=== PATIENT | female | born 1970 | race African-American/Black ===

== ENCOUNTER → 2016-10-30 | Outpatient (CLI) | payer MEDICARE, OTHER ==
[2016-10-30 11:16] VITALS: BP 113/76; PULSE 64; RESP 18; TEMP 97.6; BMI 47.4
--- NOTE | 2016-10-31 06:49 | PN ---
DATE OF SERVICE: 10/30/2016 CHIEF COMPLAINT: Follow-up gastric bypass. HISTORY OF PRESENT ILLNESS: Karina Lord is a 46-year-old female who is status post Tunde-en-Y gastric bypass on 03/31/2016. She is now almost 7 months out. At her height of 5-foot, 4-3/4-inch frame her ideal body weight is 144 pounds. Today she comes in weighing 282 pounds. Her highest weight was 364 pounds. She has lost 82 pounds in approximately 6 going on 7 months. Percent excess weight loss is 37%. Body mass index has been reduced from 61 down to 47.4. Total BMI point reduction is 13.8. In fact she has completely changed her lifestyle whereby she goes to the gym every day for over an hour including doing cardio. Her main concerns include her excess skin along her bilateral arms, thighs and abdomen. She reports discomfort, including pain along her arms especially with exercising. She has developed panniculitis of the skin fold including of the abdomen and thighs and incidentally of the arms. She has been using nystatin powders for treatment for over 6 months. Now she presents for further evaluation and management. She also reports severe lower back pain exacerbated by her excess skin. PAST MEDICAL HISTORY: 1. History of thyroid cancer. 2. Morbid obesity. 3. Iatrogenic hyperthyroidism. 4. Chronic pain, lower back. 5. Dyslipidemia. 6. Gastroesophageal reflux disease. 7. Diabetes type 2. 8. Prior history of chemoradiation. 9. History of difficult intubation. 10. Osteoarthritis of the left knee. 11. Neuropathy of the hands. 12. Vitamin D deficiency. PAST SURGICAL HISTORY: 1. Tubal ligation. 2. Thyroidectomy. 3. History of chemoradiation for thyroid cancer. 4. Upper endoscopy. MEDICATIONS: 1. Zantac. 2. Nystatin. 3. Multivitamin. 4. Magnesium oxide. 5. Synthroid. 6. Roma. 7. Calcium citrate. 8. Amoxicillin. ALLERGIES: SHELLFISH. SOCIAL HISTORY: Past tobacco user 3 years ago. FAMILY HISTORY: Her mother is at bedside who appears 20 years younger than her 79-years of age. No reports of Crohn disease or ulcerative colitis. No reports of other bariatric procedures in any family members. No reports of DVTs. REVIEW OF SYSTEMS: CONSTITUTIONAL: [place] body weight 144 pounds. Highest weight is 364 pound. Weight loss of 82 pounds. Body mass index reduced from 61.2 down to 47.4. Total BMI point reduction of 13.8. Percent excess weight loss of 37%. SKIN: Severe panniculitis including of the abdomen, thighs and arms. ENDOCRINE: History of suppressed thyroid also being managed by her cylinder block mechanic. Diabetes type 2 is completely resolved. CARDIOVASCULAR: She is not on any medications related to blood pressure. RESPIRATORY: Obstructive sleep apnea has completely resolved. MUSCULOSKELETAL: Otherwise, she has neuropathy of the hands as well as degenerative joint disease of the lower back, left knee and right foot. HEMATOLOGIC: No recent DVTs or pulmonary emboli. HEENT: She wears glasses. No troubles with hearing. She has dysphagia from history of chemoradiation and thyroid cancer. GASTROINTESTINAL: Gastroesophageal reflux disease resolved. No reports of blood in stools. NEURO: No reports of stroke or seizure disorder. PSYCH: No reports of active depression or suicidal ideation. PHYSICAL EXAM: VITAL SIGNS: 97.6, 64, 18, 113/76, 5 feet 4-3/4 inches, 282 pounds. Body mass index of 47.4. ABDOMEN: Pannus extends over pubis by 5 cm. Redundant skin of the bilateral upper arms of over 6 cm upon extension. No palpable incisional hernias. SKIN: Thighs moderate extensive skin with hyperemic consistent with panniculitis along both the abdomen including thighs. GENERAL: Well-developed female in no acute distress. HEENT: No scleral icterus. Extraocular ocular movements intact. Moist buccal mucosa. She has hoarse voice. NECK: Supple without lymphadenopathy. Well-healed collar incision. CHEST: Nonlabored respirations with equal bilateral excursions. CARDIOVASCULAR: Regular rate and rhythm. MUSCULOSKELETAL: No clubbing, cyanosis, or edema. NEURO: No focal or lateralizing signs. PSYCH: Appropriate affect. Alert and oriented to person, place and time. LABS: Hemoglobin on the low normal of 11.6. BUN elevated at 19. Creatinine improved from over 1.7 down to 1.4. Glucose elevated at 122. Hemoglobin A1c improved from 6.8. Percent iron saturation low 16.7. Triglycerides elevated at 171. Cholesterol improved from 284 done to 204. LDL elevated at 131. HDL low at 39. Thyroid-stimulating hormone suppressed of less than 0.015, more suppressed from her June labs. Parathyroid hormone elevated at 100.1. Trace elements within normal limits. ASSESSMENT: 1. Morbid obesity due to excess calories. 2. Body mass index reduced from 61.2 down to 47.4. 3. Status post Tunde-en-Y gastric bypass. 4. Adverse reaction from thyroid medication. 5. Hyperthyroidism iatrogenic. 6. Secondary hyperparathyroidism. 7. Diabetes type 2, resolved. 8. Obstructive sleep apnea, improved. 9. Panniculitis of the abdomen. 10. Panniculitis of the bilateral upper thighs. 11. Panniculitis of bilateral upper arms. PLAN: 1. Recommend continue nystatin powder for treatment. 2. She may benefit from body contouring procedure for which she has been advised alternatives with a board certified plastic surgeon. 3. In the interim, she will continue with her exercise. 4. Recommend adjustment of her thyroid medication as she is already working with an cylinder block mechanic. 5. She has done fairly well with her weight loss in the past 6 going on 7 months. I have recommended followup in approximately 9 months; otherwise for December 2016. MAVERICK
== END | disposition home or self-care (01) ==
LOC: BARWHC3 10:03
PROVIDERS: ATTEND Surgery Plastic and Reconstructive Surgery
DX: Z48.815 Encounter for surgical aftercare following surgery on the digestive system (principal); E66.01 Morbid (severe) obesity due to excess calories; Z68.42 Body mass index [BMI] 45.0-49.9, adult; Z98.84 Bariatric surgery status; T50.905A Adverse effect of unspecified drugs, medicaments and biological substances, initial encounter; E05.90 Thyrotoxicosis, unspecified without thyrotoxic crisis or storm; E21.1 Secondary hyperparathyroidism, not elsewhere classified; G47.33 Obstructive sleep apnea (adult) (pediatric); M79.3 Panniculitis, unspecified; Z79.899 Other long term (current) drug therapy
CPT/HCPCS: 99211

== ENCOUNTER → 2016-12-01 | Outpatient (CLI) | payer MEDICARE, OTHER ==
[2016-12-01 14:14] LABS: CH 26.3; HCT 35.6 % (34.0-46.0); HDW 2.94; HGB 11.6 gm/dL (11.4-16.0); MCH 26.8 pg (25.0-35.0); MCHC 32.5 g/dL (31.0-37.0); MCV 82.4 fL (80.0-100.0); Mean Platelet Volume 7.3; RBC 4.32 m/uL (3.80-5.40); RDW 15.3 % (11.5-15.5)
[2016-12-01 14:23] LABS: Partial Thromboplastin Time 23.4 sec (22.0-30.0); Prothrombin Time 10.3 sec (9.0-12.0)
[2016-12-01 14:28] LABS: ALT 48 U/L (9-52); AST 28 U/L (14-36); Alkaline Phosphatase 111 U/L (38-126); Anion Gap 9 mmol/L; Blood Urea Nitrogen 19 mg/dL (7-17); Calcium 8.8 mg/dL (8.4-10.2); Carbon Dioxide 24 mmol/L (22-30); Chloride 108 mmol/L (98-107); Cholesterol 191 mg/dL (<200); Glucose 139 mg/dL (74-99); HDL Cholesterol 46 mg/dL (40-60); Iron 61 ug/dL (37-170); Magnesium 1.6 mg/dL (1.6-2.3); Non-African American GFR(MDRD) 48 (>60 ml/min/1.73 sqM); Phosphorous 3.5 mg/dL (2.5-4.5); Potassium 4.2 mmol/L (3.5-5.1); Sodium 141 mmol/L (137-145); Total Bilirubin 0.5 mg/dL (0.2-1.3); Total Protein 6.5 g/dL (6.3-8.2); Triglycerides 137 mg/dL (<150)
[2016-12-01 14:39] LABS: % Iron Saturation 17.3 % (20-50); Prealbumin 19 mg/dL (18-36); Total Iron Binding Capacity 353 ug/dL (265-497)
[2016-12-01 15:34] LABS: Vitamin B12 662 pg/mL (239-931)
[2016-12-01 20:55] LABS: Hemoglobin A1C 5.6 % (4.2-6.1)
[2016-12-06 13:44] LABS: Selenium 144 mcg/L (63-160)
== END | disposition home or self-care (01) ==
LOC: LABWHC1 13:31
PROVIDERS: ATTEND Surgery Plastic and Reconstructive Surgery
DX: E03.8 Other specified hypothyroidism (principal); E21.1 Secondary hyperparathyroidism, not elsewhere classified; E89.1 Postprocedural hypoinsulinemia; D50.8 Other iron deficiency anemias; K90.89 Other intestinal malabsorption; E44.0 Moderate protein-calorie malnutrition; E55.9 Vitamin D deficiency, unspecified; K74.1 Hepatic sclerosis; N19 Unspecified kidney failure; K50.90 Crohn's disease, unspecified, without complications; E66.01 Morbid (severe) obesity due to excess calories
CPT/HCPCS: 36415; 80053; 80061; 82306; 82525; 82607; 82728; 82746; 83036; 83540; 83550; 83735; 83970; 84100; 84134; 84255; 84425; 84443; 84590; 84630; 85027; 85610; 85730

== ENCOUNTER 2016-12-12 16:22 | Emergency (ER) | payer MEDICARE, OTHER ==
[2016-12-12 16:31] VITALS: TEMP 97.9
[2016-12-12] MEDS ORDERED: diphenhydrAMINE 50 MG CAP PO STA (16:47)
[2016-12-12] MEDS ORDERED: MECLIZINE 12.5 MG TAB PO STA (16:47)
--- NOTE | 2016-12-12 17:01 | ED ---
Headache HPI - General Chief Complaint: Headache Stated Complaint: Headache/Dizziness Time Seen by Provider: 12/12/16 16:37 Source: patient, RN notes reviewed Mode of arrival: wheelchair Limitations: no limitations - History of Present Illness Initial Comments: 46-year-old female presents emergency Department with chief complaint of headache. Patient states that she's been having on and off headaches last week. Patient saw primary care physician daughter as well as sinus or ear related. Patient was placed on amoxicillin at that time. Patient states she has had a few bouts of dizziness only with movement. She has no dizziness at rest. She states when she moves quickly she'll occasionally get some spinning of the room. She states the headaches are alleviated with medications. Patient denies any fever, chills, neck stiffness. Denies any chest pain or shortness of breath. Denies any palpitations. She states that she did have some nausea with the dizziness but she had no vomiting. Denies any sick contacts. Patient offers no other complaints. - Related Data Home Medications Medication Instructions Recorded Confirmed HYDROcodone/APAP 7.5-325MG [[place] 1 tab PO TID PRN 12/12/16 12/12/16 7.5-325] Levothyroxine Sodium [Synthroid] 175 mcg PO DAILY 12/12/16 12/12/16 Pregabalin [Lyrica] 150 mg PO TID 12/12/16 12/12/16 Previous Rx's Medication Instructions Recorded Magnesium Oxide [Magox 400] 400 mg PO DAILY #60 tablet 04/18/16 Ranitidine HCl [Zantac] 150 mg PO BID #180 tab 07/01/16 Nystatin 100,000 Unit/gm Powd 1 applic TOPICAL BID #60 powder 10/02/16 [Mycostatin Powder] Meclizine [Antivert] 25 mg PO TID PRN #15 tab 12/12/16 Allergies Allergy/AdvReac Type Severity Reaction Status Date / Time shellfish derived AdvReac Unknown Nausea & Verified 12/12/16 16:31 Vomiting & Diarrhea Iodinated Contrast Media - AdvReac KIDNEY Verified 12/12/16 16:57 Oral and DISEASE Review of Systems ROS Statement: Those systems with pertinent positive or pertinent negative responses have been documented in the HPI. ROS Other: All systems not noted in ROS Statement are negative. Past Medical History Past Medical History: Cancer, Diabetes Mellitus, GERD/Reflux, Sleep Apnea/CPAP/ BIPAP, Thyroid Disorder Additional Past Medical History / Comment(s): throat cancer w/ radiation and chemo, difficult intubation, arthritis left knee, degenerative disc disease, neuropathy in hands, chronic back pain History of Any Multi-Drug Resistant Organisms: None Reported Past Surgical History: Bariatric Surgery, Tubal Ligation Additional Past Surgical History / Comment(s): thyroidectomy, DIFFICULT INTUBATION R/T THROAT CA RADIATION AND CHEMO, 03-31-16 VIVIAN-EN -Y. Past Anesthesia/Blood Transfusion Reactions: No Reported Reaction Past Psychological History: No Psychological Hx Reported Smoking Status: Former smoker Past Alcohol Use History: None Reported Additional Past Alcohol Use History / Comment(s): SMOKED FOR 26 YEARS. SMOKED 1PPD, QUIT 2013 Past Drug Use History: None Reported - Past Family History Mother Family Medical History: Hyperlipidemia Additional Family Medical History / Comment(s): HEPATITIS Father Additional Family Medical History / Comment(s): manic depressive, from suicide, ulcers-half of stomach removed General Exam Limitations: no limitations General appearance: alert, in no apparent distress Head exam: Present: atraumatic, normocephalic, normal inspection Eye exam: Present: normal appearance, PERRL, EOMI. Absent: scleral icterus, conjunctival injection, periorbital swelling ENT exam: Present: normal exam, normal oropharynx, mucous membranes moist, TM's normal bilaterally, normal external ear exam Neck exam: Present: normal inspection, full ROM. Absent: tenderness, meningismus, lymphadenopathy Respiratory exam: Present: normal lung sounds bilaterally. Absent: respiratory distress, wheezes, rales, rhonchi, stridor Cardiovascular Exam: Present: regular rate, normal rhythm, normal heart sounds. Absent: systolic murmur, diastolic murmur, rubs, gallop, clicks Extremities exam: Present: normal inspection (Full strength of upper extremities equal bilaterally), full ROM, normal capillary refill. Absent: tenderness, pedal edema, joint swelling, calf tenderness Neurological exam: Present: alert, oriented X3, CN II-XII intact, reflexes normal, other (Finger to nose intact bilaterally without over shooting). Absent : motor sensory deficit Skin exam: Present: warm, dry, intact, normal color. Absent: rash Course Vital Signs 12/12/16 16:27 Temperature 97.9 F Pulse Rate 73 Respiratory 18 Rate Blood Pressure 135/59 O2 Sat by Pulse 95 Oximetry Medical Decision Making - Medical Decision Making 46-year-old female presented emergency department for headache dizziness. Patient CT shows no acute abnormality. Patient has no evidence of bacterial infection. Patient's symptoms are improved after Antivert. Patient will be discharged. 12/12/16 17:47 EKG performed at 17:14 normal sinus rhythm rate of 61, AR interval 162, QRS duration 82, QT/QTC 422/[address] elevation or depression. Disposition Clinical Impression: Vertigo Disposition: HOME SELF-CARE Condition: Stable Instructions: Vertigo (ED) Additional Instructions: Please return to the Emergency Department if symptoms worsen or any other concerns. Prescriptions: Meclizine [Antivert] 25 mg PO TID PRN #15 tab PRN Reason: Vertigo Time of Disposition: 17:48
--- NOTE | 2016-12-12 17:39 | CT ---
EXAMINATION TYPE: CT brain wo con DATE OF EXAM: 12/12/2016 5:32 PM COMPARISON: NONE HISTORY: Headache and dizziness x [address] DLP: 1121.00 mGycm Automated exposure control for dose reduction was used. FINDINGS: The ventricles and sulci appear normal. There is no mass effect nor midline shift. There is no sign o f intracranial hemorrhage. Calvarium is intact. IMPRESSION: Negative unenhanced head CT scan.
[2016-12-12 18:05] VITALS: BP 96/55; PULSE 56; RESP 16
== END 2016-12-12 18:05 | disposition home or self-care (01) ==
LOC: EC 16:22
DX: R42 Dizziness and giddiness (principal); R51 Headache; G47.30 Sleep apnea, unspecified; E89.0 Postprocedural hypothyroidism; G62.9 Polyneuropathy, unspecified; Z87.891 Personal history of nicotine dependence; Z91.041 Radiographic dye allergy status; Z91.013 Allergy to seafood; Z79.899 Other long term (current) drug therapy
CPT/HCPCS: 70450; 93005; 99284

== ENCOUNTER → 2016-12-25 | Outpatient (CLI) | payer MEDICARE, OTHER ==
[2016-12-25 09:29] VITALS: BP 125/73; PULSE 84; TEMP 98.1; BMI 46.1
--- NOTE | 2017-01-26 11:42 | PN ---
DATE OF SERVICE: 12/25/2016. CHIEF COMPLAINT: Follow-up gastric bypass. HISTORY OF PRESENT ILLNESS: Karina Lord is a 46-year-old female status post gastric bypass on 03/31/2016. She is now 9 months out. At her height of 5 feet 4-3/4 inches frame, her ideal body weight is 144 pounds. Highest weight was 364 pounds. Today she comes in weighing 275 pounds. Weight loss is 90 pounds after 9 months. Percent excess weight loss 41%. Body mass index is reduced from 61.2 down to 46.1. Total BMI point reduction is 15 points. She is still 131 pounds overweight. She comes in with her mother whereby she is somewhat disappointed with the slowness of her weight loss. She comes in with sinusitis this morning including coughing up moderate mucus. She is seeing her costume maker regarding her thyroid disorder. PAST MEDICAL HISTORY: 1. History of thyroid cancer. 2. Morbid obesity. 3. Iatrogenic hyperthyroidism. 4. Chronic pain, lower back. 5. Dyslipidemia. 6. Gastroesophageal reflux disease. 7. Diabetes type 2. 8. Prior history of chemoradiation. 9. History of difficult intubation. 10. Osteoarthritis of the left knee. 11. Neuropathy of the hands. 12. Vitamin D deficiency. PAST SURGICAL HISTORY: 1. Tubal ligation. 2. Thyroidectomy. 3. History of chemoradiation for thyroid cancer. 4. Upper endoscopy. 5. Status post gastric bypass. MEDICATIONS: 1. Zantac. 2. Lyrica. 3. Antivert. 4. Synthroid. 5. [place]. 6. Levaquin. 7. Vitamin D. 8. Calcium. ALLERGIES: SHELLFISH. SOCIAL HISTORY: Past tobacco user 3 years ago. FAMILY HISTORY: Her mother is at bedside who appears 20 years younger than her 79-years of age. No reports of Crohn disease or ulcerative colitis. No reports of other bariatric procedures in any family members. No reports of DVTs. REVIEW OF SYSTEMS: CONSTITUTIONAL: [place] body weight of 144 pounds. Highest weight of 364 pounds. Present weight is 275 pounds. She has lost 7 pounds since her last follow-up, now 2 months ago. Percent excess weight loss of 41%. BMI reduced from 61.2 down to 46.1. Total BMI point reduction is 15 points. She is still 131 pounds overweight. HEENT: Reports sinusitis including sinus congestion with pressure. No reports of dysphagia. SKIN: Severe panniculitis including of the abdomen, thighs and arms. ENDOCRINE: History of suppressed thyroid also being managed by her costume maker. Diabetes type 2 is completely resolved. CARDIOVASCULAR: She is not on any medications related to blood pressure. RESPIRATORY: Obstructive sleep apnea has completely resolved. MUSCULOSKELETAL: Otherwise, she has neuropathy of the hands as well as degenerative joint disease of the lower back, left knee and right foot. HEMATOLOGIC: No recent DVTs or pulmonary emboli. GASTROINTESTINAL: Gastroesophageal reflux disease resolved. No reports of blood in stools. NEURO: No reports of stroke or seizure disorder. PSYCH: No reports of active depression or suicidal ideation. PHYSICAL EXAM: VITAL SIGNS: 98.1, 84, 125/73; 5 feet 4-3/4 inches frame, 275 pounds. Body mass index of 46.1. ABDOMEN: Soft, nontender, nondistended. No palpable incisional hernias. Pannus extends over pubis by over 6 cm. Mild hyperemia. SKIN: Thighs moderate extensive skin with hyperemic consistent with panniculitis along the abdomen. GENERAL: Well-developed female in no acute distress. HEENT: No scleral icterus. Extraocular ocular movements intact. Moist buccal mucosa. She has hoarse voice. NECK: Supple without lymphadenopathy. Well-healed collar incision. CHEST: Nonlabored respirations with equal bilateral excursions. CARDIOVASCULAR: Regular rate and rhythm. MUSCULOSKELETAL: No clubbing, cyanosis, or edema. NEURO: No focal or lateralizing signs. PSYCH: Appropriate affect. Alert and oriented to person, place and time. LABS: Hemoglobin was normal at 11.6. Chloride was elevated at 108. BUN was elevated at 19. Creatinine elevated 1.2. However, improved in the past from 1.7. Glucose elevated at 139. Hemoglobin A1c normal at 5.6 down from 6.8. Percent iron saturation low at 17.3, LDL elevated at 118. Vitamin D low at 27.4. Thyroid-stimulating hormone suppressed at 0.015. Parathyroid hormone elevated at 81.6. ASSESSMENT: 1. Morbid obesity due to excess calories. 2. Body mass index reduced from 61.2 down to 46.1. 3. Status post Tun[place]-Y gastric bypass. 4. Adverse reaction from thyroid medication. 5. Hyperthyroidism iatrogenic. 6. Secondary hyperparathyroidism. 7. Diabetes type 2, resolved. 8. Obstructive sleep apnea, improved. 9. Panniculitis of the abdomen. 10. Panniculitis of the bilateral upper thighs. 11. Panniculitis of bilateral upper arms. 12. Secondary hyperparathyroidism. 13. Stage II renal insufficiency secondary to diabetes. 14. Vitamin D deficiency. 15. Iatrogenic hyperthyroidism. 16. Sinusitis. PLAN: 1. For her parathyroid hormone including thyroid medication this will be addressed by her costume maker. 2. Recommend calcium intake at minimum 1200 mg daily with vitamin D supplement. 3. She is seeking additional weight loss, whereby her year is still pending for March. 4. Recommend close dietary surveillance and counseling. 5. Otherwise follow-up March 2017. 6. On exam, she has sinusitis which prescription was written on her behalf for antibiotics. MAVERICK
--- NOTE | 2017-01-28 00:43 | P.PN ---
Progress Note - Text DATE OF SERVICE: 12/25/2016. CHIEF COMPLAINT: Follow-up gastric bypass. HISTORY OF PRESENT ILLNESS: Karina Lord is a 46-year-old female status post gastric bypass on 03/31/2016. She is now 9 months out. At her height of 5 feet 4-3/4 inches frame, her ideal body weight is 144 pounds. Highest weight was 364 pounds. Today she comes in weighing 275 pounds. Weight loss is 90 pounds after 9 months. Percent excess weight loss 41%. Body mass index is reduced from 61.2 down to 46.1. Total BMI point reduction is 15 points. She is still 131 pounds overweight. She comes in with her mother whereby she is somewhat disappointed with the slowness of her weight loss. She comes in with sinusitis this morning including coughing up moderate mucus. She is seeing her road commissioner regarding her thyroid disorder. PAST MEDICAL HISTORY: 1. History of thyroid cancer. 2. Morbid obesity. 3. Iatrogenic hyperthyroidism. 4. Chronic pain, lower back. 5. Dyslipidemia. 6. Gastroesophageal reflux disease. 7. Diabetes type 2. 8. Prior history of chemoradiation. 9. History of difficult intubation. 10. Osteoarthritis of the left knee. 11. Neuropathy of the hands. 12. Vitamin D deficiency. PAST SURGICAL HISTORY: 1. Tubal ligation. 2. Thyroidectomy. 3. History of chemoradiation for thyroid cancer. 4. Upper endoscopy. 5. Status post gastric bypass. MEDICATIONS: 1. Zantac. 2. Lyrica. 3. Antivert. 4. Synthroid. 5. [place]. 6. Levaquin. 7. Vitamin D. 8. Calcium. ALLERGIES: SHELLFISH. SOCIAL HISTORY: Past tobacco user 3 years ago. FAMILY HISTORY: Her mother is at bedside who appears 20 years younger than her 79-years of age. No reports of Crohn disease or ulcerative colitis. No reports of other bariatric procedures in any family members. No reports of DVTs. REVIEW OF SYSTEMS: CONSTITUTIONAL: [place] body weight of 144 pounds. Highest weight of 364 pounds. Present weight is 275 pounds. She has lost 7 pounds since her last follow-up, now 2 months ago. Percent excess weight loss of 41%. BMI reduced from 61.2 down to 46.1. Total BMI point reduction is 15 points. She is still 131 pounds overweight. HEENT: Reports sinusitis including sinus congestion with pressure. No reports of dysphagia. SKIN: Severe panniculitis including of the abdomen, thighs and arms. ENDOCRINE: History of suppressed thyroid also being managed by her road commissioner. Diabetes type 2 is completely resolved. CARDIOVASCULAR: She is not on any medications related to blood pressure. RESPIRATORY: Obstructive sleep apnea has completely resolved. MUSCULOSKELETAL: Otherwise, she has neuropathy of the hands as well as degenerative joint disease of the lower back, left knee and right foot. HEMATOLOGIC: No recent DVTs or pulmonary emboli. GASTROINTESTINAL: Gastroesophageal reflux disease resolved. No reports of blood in stools. NEURO: No reports of stroke or seizure disorder. PSYCH: No reports of active depression or suicidal ideation. PHYSICAL EXAM: VITAL SIGNS: 98.1, 84, 125/73; 5 feet 4-3/4 inches frame, 275 pounds. Body mass index of 46.1. ABDOMEN: Soft, nontender, nondistended. No palpable incisional hernias. Pannus extends over pubis by over 6 cm. Mild hyperemia. SKIN: Thighs moderate extensive skin with hyperemic consistent with panniculitis along the abdomen. GENERAL: Well-developed female in no acute distress. HEENT: No scleral icterus. Extraocular ocular movements intact. Moist buccal mucosa. She has hoarse voice. NECK: Supple without lymphadenopathy. Well-healed collar incision. CHEST: Nonlabored respirations with equal bilateral excursions. CARDIOVASCULAR: Regular rate and rhythm. MUSCULOSKELETAL: No clubbing, cyanosis, or edema. NEURO: No focal or lateralizing signs. PSYCH: Appropriate affect. Alert and oriented to person, place and time. LABS: Hemoglobin was normal at 11.6. Chloride was elevated at 108. BUN was elevated at 19. Creatinine elevated 1.2. However, improved in the past from 1.7. Glucose elevated at 139. Hemoglobin A1c normal at 5.6 down from 6.8. Percent iron saturation low at 17.3, LDL elevated at 118. Vitamin D low at 27.4. Thyroid-stimulating hormone suppressed at 0.015. Parathyroid hormone elevated at 81.6. ASSESSMENT: 1. Morbid obesity due to excess calories. 2. Body mass index reduced from 61.2 down to 46.1. 3. Status post Tunde-en-Y gastric bypass. 4. Adverse reaction from thyroid medication. 5. Hyperthyroidism iatrogenic. 6. Secondary hyperparathyroidism. 7. Diabetes type 2, resolved. 8. Obstructive sleep apnea, improved. 9. Panniculitis of the abdomen. 10. Panniculitis of the bilateral upper thighs. 11. Panniculitis of bilateral upper arms. 12. Secondary hyperparathyroidism. 13. Stage II renal insufficiency secondary to diabetes. 14. Vitamin D deficiency. 15. Iatrogenic hyperthyroidism. 16. Sinusitis. PLAN: 1. For her parathyroid hormone including thyroid medication this will be addressed by her road commissioner. 2. Recommend calcium intake at minimum 1200 mg daily with vitamin D supplement. 3. She is seeking additional weight loss, whereby her year is still pending for March. 4. Recommend close dietary surveillance and counseling. 5. Otherwise follow-up March 2017. 6. On exam, she has sinusitis which prescription was written on her behalf for antibiotics.
== END | disposition home or self-care (01) ==
LOC: BARWHC3 08:35
PROVIDERS: ATTEND Surgery Plastic and Reconstructive Surgery
DX: Z71.3 Dietary counseling and surveillance (principal); E66.01 Morbid (severe) obesity due to excess calories; Z68.42 Body mass index [BMI] 45.0-49.9, adult
CPT/HCPCS: 97803; G0463; 99211

== ENCOUNTER 2016-12-31 18:29 | Emergency (ER) | payer MEDICARE, OTHER ==
[2016-12-31 19:00] VITALS: BP 98/53; PULSE 67; RESP 14; TEMP 96.8
[2016-12-31] MEDS ORDERED: BISMUTH SUBSALICYLATE 4,192 MG/240 ML BOTTLE PO STA (22:02)
--- NOTE | 2016-12-31 22:08 | ED ---
General Adult HPI - General Chief complaint: Dizziness Stated complaint: dizzy, abd pain Time Seen by Provider: 12/31/16 21:20 Source: patient, family, RN notes reviewed, old records reviewed Mode of arrival: wheelchair Limitations: no limitations - History of Present Illness Initial comments: Chief complaint history of present illness is a 46-year-old female here with the mother. The patient has had vertigo type symptoms today. She was in the emergency room several weeks ago. Placed on meclizine. But would only take one pill on occasion when she was dizzy. She also had loose stool today. No blood in the stool. No fever. No pain. - Related Data Home Medications Medication Instructions Recorded Confirmed HYDROcodone/APAP 7.5-325MG [[place] 1 tab PO TID PRN 12/12/16 12/31/16 7.5-325] Levothyroxine Sodium [Synthroid] 175 mcg PO DAILY 12/12/16 12/31/16 Pregabalin [Lyrica] 150 mg PO TID 12/12/16 12/31/16 Ergocalciferol [Vitamin D2 50,000 unit PO TH 12/31/16 12/31/16 (DRISDOL)] Levofloxacin [Levaquin] 750 mg PO DAILY 12/31/16 12/31/16 Previous Rx's Medication Instructions Recorded Ranitidine HCl [Zantac] 150 mg PO BID #180 tab 07/01/16 Meclizine [Antivert] 25 mg PO TID PRN #15 tab 12/12/16 Calcium Carbonate [Calcium] 600 mg PO BID #60 tablet 12/25/16 Meclizine [Antivert] 25 mg PO TID #30 tab 12/31/16 Allergies Allergy/AdvReac Type Severity Reaction Status Date / Time shellfish derived AdvReac Unknown Nausea & Verified 12/31/16 21:42 Vomiting & Diarrhea Iodinated Contrast Media - AdvReac KIDNEY Verified 12/31/16 21:42 Oral and DISEASE Review of Systems ROS Statement: Those systems with pertinent positive or pertinent negative responses have been documented in the HPI. Review of systems. No headache or visual acuity changes still slightly dizzy when she moves her head quickly. No chest pain shortness of breath or abdominal pain. She has had diarrhea today. No pain at this time. All systems were otherwise reviewed. 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 She had GERD, sleep apnea, hypothyroidism and morbid obesity. Surgeries include bariatric surgery, gastric bypass. She's lost 93 pounds in one year. He also tubal ligation. Thyroidectomy. And the work she had on her epiglottic area. Patient also had a hernia repair. Family history no cancers. Patient has ALLERGIES to shellfish arrived, and I pronated contrast material both oral and IV. The patient's quit smoking 5 years ago denies alcohol use ROS Other: All systems not noted in ROS Statement are negative. Past Medical History Past Medical History: Cancer, Diabetes Mellitus, GERD/Reflux, Sleep Apnea/CPAP/ BIPAP, Thyroid Disorder Additional Past Medical History / Comment(s): throat cancer w/ radiation and chemo, difficult intubation, arthritis left knee, degenerative disc disease, neuropathy in hands, chronic back pain History of Any Multi-Drug Resistant Organisms: None Reported Past Surgical History: Bariatric Surgery, Tubal Ligation Additional Past Surgical History / Comment(s): thyroidectomy, DIFFICULT INTUBATION R/T THROAT CA RADIATION AND CHEMO, 03-31-16 VIVIAN-EN -Y. Past Anesthesia/Blood Transfusion Reactions: No Reported Reaction Past Psychological History: No Psychological Hx Reported Smoking Status: Former smoker Past Alcohol Use History: None Reported Additional Past Alcohol Use History / Comment(s): SMOKED FOR 26 YEARS. SMOKED 1PPD, QUIT 2013 Past Drug Use History: None Reported - Past Family History Mother Family Medical History: Hyperlipidemia Additional Family Medical History / Comment(s): HEPATITIS Father Additional Family Medical History / Comment(s): manic depressive, from suicide, ulcers-half of stomach removed General Exam - General Exam Comments Initial Comments: General: The patient is awake and alert, in no distress, and does not appear acutely ill. Less dizzy now than she was before but still slightly with head movement. No signs show temperature 96.8 pulse 67 respiratory rate 14 pulse ox 97% room air blood pressure 98/53. Eye: Pupils are equal, round and reactive to light, extra-ocular movements are intact ; there is normal conjunctiva bilaterally. No signs of icterus. Ears, nose, mouth and throat: There are moist mucous membranes and no oral lesions. Neck: The neck is supple, there is no tenderness , no anterior cervical lymphadenopathy. No stridor, no carotid bruit. Cardiovascular: There is a regular rate and rhythm. No murmur, rub or gallop is appreciated. Respiratory: Lungs are clear to auscultation, respirations are non-labored, breath sounds are equal. No wheezes, stridor, rales, or rhonchi. Gastrointestinal: Soft, non-distended, non-tender abdomen without masses or organomegaly noted. There is no rebound or guarding present. No CVA tenderness. Bowel sounds are unremarkable. History of gastric bypass. 96 pound weight loss. Back: Chronic back pain from disc disease. No new problems. Musculoskeletal: Normal ROM, no tenderness, There is no pedal edema. There is no calf tenderness or swelling. Sensation intact. Pulses equal bilaterally 2+. Neurological: CN II-XII intact, There are no obvious motor or sensory deficits. Coordination appears grossly intact. Speech is normal. No neuro deficits. Cranial nerves II through XII are intact no focal or lateralizing findings. Skin: Skin is warm and dry and no rashes or lesions are noted. Limitations: no limitations Course Vital Signs 12/31/16 18:56 Temperature 96.8 F L Pulse Rate 67 Respiratory 14 Rate Blood Pressure 98/53 O2 Sat by Pulse 97 Oximetry Medical Decision Making - Medical Decision Making Patient was given a dose of Pepto-Bismol to control her diarrhea. She'll be given a prescription and advised to take the meclizine not just one at a time when she is dizzy but rather consistently to prevent dizziness. Advised to follow-up with her family physician return emergency room as needed. Disposition Clinical Impression: Benign positional vertigo Disposition: HOME SELF-CARE Condition: Stable Instructions: Dizziness (ED), Benign Paroxysmal Positional Vertigo (ED) Additional Instructions: Stay hydrated. Use meclizine as directed. Take Pepto-Bismol to control loose stool. Follow-up with family physician return emergency room as needed Prescriptions: Meclizine [Antivert] 25 mg PO TID #30 tab Time of Disposition: 22:07
== END 2016-12-31 22:27 | disposition home or self-care (01) ==
LOC: EC 18:29
DX: H81.10 Benign paroxysmal vertigo, unspecified ear (principal); R19.7 Diarrhea, unspecified; E66.01 Morbid (severe) obesity due to excess calories; E03.9 Hypothyroidism, unspecified; G47.30 Sleep apnea, unspecified; K21.9 Gastro-esophageal reflux disease without esophagitis; Z98.84 Bariatric surgery status; Z87.891 Personal history of nicotine dependence; Z85.89 Personal history of malignant neoplasm of other organs and systems; Z92.21 Personal history of antineoplastic chemotherapy; Z92.3 Personal history of irradiation; Z79.899 Other long term (current) drug therapy
CPT/HCPCS: 99283

== ENCOUNTER → 2017-01-03 | Outpatient (CLI) | payer MEDICARE, OTHER ==
--- NOTE | 2017-01-04 11:01 | PE ---
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 Delayed scanning performed from the skull base to t he mid thighs. Small [id number] images obtained through the head and neck. Correlation to prior nuclear medicine PET/CT 29 December 2015 Head and neck: There is no suspicious hypermetabolic uptake. No evident adenopathy. Salivary gland sh ow a symmetric appearance. CHEST: No lung nodule. Mild uptake in the hilar and subcarinal regions show SUV approximately 4 to 5. Prevascular soft tissue may represent adenopathy and SUV is 5.3. ABDOMEN: Postop changes are noted as on previous. No suspicious hypermetabolic uptake, no retroperito shaquille adenopathy. Pelvis: Unremarkable, no suspicious hypermetabolic uptake. Bones are within normal limits. IMPRESSION: Findings within the chest are nonspecific. Mediastinal adenopathy does not show a definit e interval change.
== END | disposition home or self-care (01) ==
LOC: RADPETMAIN 09:21
PROVIDERS: ATTEND Internal Medicine Hematology & Oncology
DX: C76.0 Malignant neoplasm of head, face and neck (principal); R59.0 Localized enlarged lymph nodes
CPT/HCPCS: 78815; A9552

== ENCOUNTER 2017-02-15 22:39 | Inpatient (IN) | payer MEDICARE, OTHER ==
[2017-02-15] MEDS ORDERED: SODIUM CHLORIDE 0.9% 1,000 ML IV STA (22:55)
--- NOTE | 2017-02-15 23:07 | ED ---
ENT HPI - General Source: patient, RN notes reviewed Mode of arrival: wheelchair Limitations: no limitations <Chitra Farris - Last Filed: 02/16/17 00:08> <Jones Hall - Last Filed: 02/16/17 00:15> - General Chief complaint: ENT Stated complaint: SOB Time Seen by Provider: 02/15/17 22:49 - History of Present Illness Initial comments: 46-year-old female presents to the emergency department with a chief complaint of throat irritation. Patient woke up this morning with some throat irritation Patient states since it's increased. She feels as if there is something in her throat. Patient states it just feels as if there is something blocking her throat. She does have a history of throat cancer. Should the fever chills any cough cold runny nose with this. Patient denies any nausea vomiting. They were concerned due to this irritation so she thought that she should be seen. Patient denies any recent fever, chills, shortness of breath, chest pain, back pain, abdominal pain, nausea vomiting, numbness or tingling, dysuria or hematuria, constipation or diarrhea, headaches or visual changes, or any other current symptoms. (Chitra Farris) - Related Data Home Medications Medication Instructions Recorded Confirmed HYDROcodone/APAP 7.5-325MG [[place] 1 tab PO TID PRN 12/12/16 12/31/16 7.5-325] Levothyroxine Sodium [Synthroid] 175 mcg PO DAILY 12/12/16 12/31/16 Pregabalin [Lyrica] 150 mg PO TID 12/12/16 12/31/16 Ergocalciferol [Vitamin D2 50,000 unit PO TH 12/31/16 12/31/16 (DRISDOL)] Levofloxacin [Levaquin] 750 mg PO DAILY 12/31/16 12/31/16 Previous Rx's Medication Instructions Recorded Ranitidine HCl [Zantac] 150 mg PO BID #180 tab 07/01/16 Meclizine [Antivert] 25 mg PO TID PRN #15 tab 12/12/16 Calcium Carbonate [Calcium] 600 mg PO BID #60 tablet 12/25/16 Meclizine [Antivert] 25 mg PO TID #30 tab 12/31/16 Allergies Allergy/AdvReac Type Severity Reaction Status Date / Time shellfish derived AdvReac Unknown Nausea & Verified 02/15/17 22:45 Vomiting & Diarrhea Iodinated Contrast Media - AdvReac KIDNEY Verified 02/15/17 22:45 Oral and DISEASE Review of Systems ROS Other: All systems not noted in ROS Statement are negative. <Chitra Farris - Last Filed: 02/16/17 00:08> ROS Other: All systems not noted in ROS Statement are negative. <Jones Hall - Last Filed: 02/16/17 00:15> ROS Statement: Those systems with pertinent positive or pertinent negative responses have been documented in the HPI. Past Medical History Past Medical History: Cancer, Diabetes Mellitus, GERD/Reflux, Sleep Apnea/CPAP/ BIPAP, Thyroid Disorder Additional Past Medical History / Comment(s): throat cancer w/ radiation and chemo, difficult intubation, arthritis left knee, degenerative disc disease, neuropathy in hands, chronic back pain History of Any Multi-Drug Resistant Organisms: None Reported Past Surgical History: Bariatric Surgery, Tubal Ligation Additional Past Surgical History / Comment(s): thyroidectomy, DIFFICULT INTUBATION R/T THROAT CA RADIATION AND CHEMO, 03-31-16 VIVIAN-EN -Y. Past Anesthesia/Blood Transfusion Reactions: No Reported Reaction Past Psychological History: No Psychological Hx Reported Smoking Status: Former smoker Past Alcohol Use History: None Reported Additional Past Alcohol Use History / Comment(s): SMOKED FOR 26 YEARS. SMOKED 1PPD, QUIT 2013 Past Drug Use History: None Reported - Past Family History Mother Family Medical History: Hyperlipidemia Additional Family Medical History / Comment(s): HEPATITIS Father Additional Family Medical History / Comment(s): manic depressive, from suicide, ulcers-half of stomach removed <Chitra Farris - Last Filed: 02/16/17 00:08> General Exam Limitations: no limitations General appearance: alert, in no apparent distress Head exam: Present: atraumatic, normocephalic, normal inspection ENT exam: Present: normal exam, normal oropharynx, mucous membranes moist, normal external ear exam Neck exam: Present: normal inspection. Absent: tenderness, meningismus, lymphadenopathy Respiratory exam: Present: normal lung sounds bilaterally. Absent: respiratory distress, wheezes, rales, rhonchi, stridor Cardiovascular Exam: Present: regular rate, normal rhythm, normal heart sounds. Absent: systolic murmur, diastolic murmur, rubs, gallop, clicks Back exam: Present: normal inspection Neurological exam: Present: alert, oriented X3, CN II-XII intact. Absent: motor sensory deficit Psychiatric exam: Present: normal affect, normal mood Skin exam: Present: warm, dry, intact, normal color. Absent: rash <Chitra Farris - Last Filed: 02/16/17 00:08> Medical Decision Making - Lab Data Result diagrams: 02/15/17 23:30 02/15/17 23:30 - Radiology Data Radiology results: report reviewed, image reviewed <Chitra Farris - Last Filed: 02/16/17 00:08> - Lab Data Result diagrams: 02/15/17 23:30 02/15/17 23:30 <Jones Hall - Last Filed: 02/16/17 00:15> - Medical Decision Making 46-year-old female presents emergency Department chief complaint of throat irritation. At this time at this time there does appear to be a concern for acute laryngitis with associated epiglottitis. We discussed the case with Dr. Hoffman who will admit the patient would like us to start Decadron and Rocephin. This and we will start for the patient. Patient is negative with the plan. (Chitra Farris) - Lab Data Lab Results 02/15/17 02/15/17 Range/Units 23:30 23:30 WBC 5.3 (3.8-10.6) k/uL RBC 4.57 (3.80-5.40) m/uL Hgb 12.1 (11.4-16.0) gm/dL Hct 37.5 (34.0-46.0) % MCV 82.0 (80.0-100.0) fL MCH 26.6 (25.0-35.0) pg MCHC 32.4 (31.0-37.0) g/dL RDW 15.8 H (11.5-15.5) % Plt Count 200 (150-450) k/uL Neutrophils % 71 % Lymphocytes % 18 % Monocytes % 5 % Eosinophils % 4 % Basophils % 1 % Neutrophils # 3.8 (1.3-7.7) k/uL Lymphocytes # 0.9 L (1.0-4.8) k/uL Monocytes # 0.2 (0-1.0) k/uL Eosinophils # 0.2 (0-0.7) k/uL Basophils # 0.1 (0-0.2) k/uL Sodium 142 (137-145) mmol/L Potassium 4.3 (3.5-5.1) mmol/L Chloride 110 H (98-107) mmol/L Carbon Dioxide 23 (22-30) mmol/L Anion Gap 9 mmol/L BUN 27 H (7-17) mg/dL Creatinine 1.30 H (0.52-1.04) mg/dL Est GFR (MDRD) Af Amer 53 (>60 ml/min/1.73 sqM) Est GFR (MDRD) Non-Af 44 (>60 ml/min/1.73 sqM) Glucose 97 (74-99) mg/dL Calcium 8.7 (8.4-10.2) mg/dL Total Bilirubin 0.5 (0.2-1.3) mg/dL AST 41 H (14-36) U/L ALT 50 (9-52) U/L Alkaline Phosphatase 120 (38-126) U/L Total Protein 6.6 (6.3-8.2) g/dL Albumin 3.6 (3.5-5.0) g/dL Disposition Time of Disposition: 00:12 Decision Date: 02/16/17 Decision Time: 00:12 <Chitra Farris - Last Filed: 02/16/17 00:08> <[place] - Last Filed: 02/16/17 00:15> Clinical Impression: Laryngitis acute, spasmodic, Epiglottitis Disposition: ADMITTED IP TO THIS HOSP Condition: Stable Referrals: Segun Hansen MD [Primary Care Provider] - 1-2 days
[2017-02-15 23:41] LABS: Basophils # (A) 0.1 k/uL (0-0.2); Basophils % (A) 1 %; CH 26.7; CHCM 32.6; Eosinophils # (A) 0.2 k/uL (0-0.7); Eosinophils % (A) 4 %; HCT 37.5 % (34.0-46.0); HDW 2.82; HGB 12.1 gm/dL (11.4-16.0); Luc # (Auto) 0.11; Luc % (Auto) 2; Lymphocytes # (A) 0.9 k/uL (1.0-4.8); Lymphocytes % (A) 18 %; MCH 26.6 pg (25.0-35.0); MCHC 32.4 g/dL (31.0-37.0); Mean Platelet Volume 7.3; Monocytes # (A) 0.2 k/uL (0-1.0); Monocytes % (A) 5 %; Neutrophils # (A) 3.8 k/uL (1.3-7.7); Neutrophils % (A) 71 %; RBC 4.57 m/uL (3.80-5.40); RDW 15.8 % (11.5-15.5); WBC 5.3 k/uL (3.8-10.6); WBC (Perox) 5.21
--- NOTE | 2017-02-15 23:48 | CT ---
ADDENDUM - Added by Ke Yip M.D. on 02/15/2017 11:56 PM (-07:00) There is no reported history of recent radiation. Findings may reflect acute laryngitis/epiglottitis. Discussed with MARSHALL Fernandes on 02/15 23:55 (-04:00) EXAM: CT Neck Without Intravenous Contrast CLINICAL HISTORY: Reason: Pain TECHNIQUE: Axial computed tomography images of the neck without intravenous contrast. CTDI is 24.8 mGy and DLP is 804.7 mGy-cm This CT exam was performed using one or more of the following dose reduction techniques: automated exposure control, adjustment of the mA and/or kV according to patient size, and/or use of iterative reconstruction technique. Coronal and sagittal reformatted images were created and reviewed. COMPARISON: PET/CT 01/04/17 FINDINGS: Nasopharynx: Unremarkable. Oropharynx: Unremarkable. No significant tonsillar enlargement. Hypopharynx: Unremarkable. Larynx: There is swelling of the vocal cords as well as the supraglottic airway with effacement of the laryngeal ventricles and swelling of the aryepiglottic folds and epiglottis. This may be related to posttreatment changes. This appears to be increased compared to the prior study. Trachea: Unremarkable. Retropharyngeal space: Unremarkable. Submandibular/parotid glands: Unremarkable. Glands are normal in size. Thyroid: Unremarkable. No enlarged or calcified nodules. Bones/joints: No acute fracture. Cervical spondylosis. Soft tissues: Unremarkable. Vasculature: No acute findings. Lymph nodes: There is a prevascular 9.8 x 32.3 mm lymph node which appears decreased in size, previously 17.6 x 40.7 mm. Paratracheal lymph nodes are seen measuring up to 9.8 mm, similar to the prior study. Lung apices: Unremarkable as visualized. IMPRESSION: 1. Swelling of the vocal cords as well as the supraglottic airway with effacement of the laryngeal ventricles and swelling of the aryepiglottic folds and epiglottis. This may be related to posttreatment changes. This appears to be increased compared to the prior study. 2. There is a prevascular 9.8 x 32.3 mm lymph node which appears decreased in size, previously 17.6 x 40.7 mm. Paratracheal lymph nodes are seen measuring up to 9.8 mm, similar to the prior study. [employer] 02/15/17 23:54 Call Doctor Regarding Above results, called MARSHALL Fernandes on 02/15 23:53 (-04:00)
[2017-02-15 23:51] LABS: Calcium 8.7 mg/dL (8.4-10.2); Potassium 4.3 mmol/L (3.5-5.1); Total Bilirubin 0.5 mg/dL (0.2-1.3); Total Protein 6.6 g/dL (6.3-8.2)
[2017-02-16] MEDS ORDERED: methylPREDNISolone SOD SUCCI 125 MG/2 ML VIAL IV STA (00:09)
[2017-02-16] MEDS ORDERED: DEXAMETHASONE SOD PHOSPHATE 10 MG/ML 1 ML VIAL IV STA ×2 (00:10→00:25)
[2017-02-16] MEDS ORDERED: NALOXONE 0.4 MG/ML 1 ML VIAL IV PRN (00:13)
[2017-02-16] MEDS ORDERED: ACETAMINOPHEN TAB 325 MG TAB PO PRN (00:13)
[2017-02-16] MEDS ORDERED: ONDANSETRON 4 MG/2 ML VIAL IVP PRN (00:13)
[2017-02-16] MEDS ORDERED: IBUPROFEN 400 MG TAB PO PRN (00:13)
[2017-02-16] MEDS: SODIUM CHLORIDE 0.9% 1,000 ML IV SCH ×2 (00:39→17:50)
[2017-02-16 01:42] VITALS: BMI 43.2
[2017-02-16] MEDS: HYDROcodone/APAP 7.5-325MG 1 EACH TAB PO PRN ×2 (01:51→14:28)
--- NOTE | 2017-02-16 07:33 | CONS ---
CONSULTATION AND PROCEDURE NOTE DATE OF CONSULTATION: CHIEF COMPLAINT: Sore throat, throat swelling. HISTORY: This is a 46-year-old black female who has a history of supraglottic squamous cell carcinoma. She was treated a few years ago with chemotherapy and radiotherapy and has been followed periodically, although I have not seen her in the office recently. She does continue to follow up with Dr. Wilson; however, including a PET scan back in December which apparently showed some lymphadenopathy, but otherwise, although she has not had any further treatment since then. Yesterday morning she started having some throat irritation and this progressed as they went on with some foreign body sensation in the throat and some mild soreness. She had no respiratory difficulty with this. She had CT scan last night, which showed some soft tissue swelling of especially the supraglottis, more so than it was noted on PET scan in December on comparison by the radiologist. She was placed on Rocephin and steroids. She feels that her throat is better this morning already, although and only minimally sore, but still has a little of bit of foreign body sensation. She is having no respiratory distress. Past medical history is as above as well as diabetes, GERD, sleep apnea, hypothyroidism. PAST SURGICAL HISTORY: Bariatric surgery, tubal ligation, thyroidectomy, arthritis and neuropathy, chronic back pain. SOCIAL HISTORY: Did smoke; does not now. Alcohol consumption, none. Family history is positive for hyperlipidemia and hepatitis. Medications at home are hydrocodone, Synthroid, Lyrica, vitamin D, calcium, meclizine as needed. Allergies to IODINE and SHELLFISH. PHYSICAL EXAM: Vital signs temperature was 99.0. Vital signs, otherwise all within normal limits. GENERAL: This is a well-developed adult black female. She has just slight hoarseness although this is not particularly different than she has had postradiation in comparison to previous exams. She has no stridor or respiratory distress, tolerating her own secretions well. HEENT: Head normocephalic, atraumatic. Ears bilateral canals clear. Tympanic membranes unremarkable and mobile. The nose shows no drainage or obstruction. Mouth and throat show the oropharynx is moist. No swelling or erythema is noted. Hypopharynx and larynx exam with flexible laryngoscopy shows moderate edema and mild erythema diffusely of the supraglottis. The edema is slightly more then her baseline from her radiotherapy. No focal lesions were noted. Vocal cords were well visualized and are mobile. Neck is obese. No focal masses or adenopathy palpated. Labs showed normal white blood cell count. ASSESSMENT: 1. Supraglottitis. 2. History of supraglottic squamous cell carcinoma, status post chemotherapy, radiotherapy. PLAN: Patient will continue on IV antibiotics and IV steroids. The IV steroids have appeared to make some difference already symptomatically. Will continue the same. Disposition will be still to stay as inpatient presently. At best, may be able to be discharged tonight if she continues to improve. However, may need to be here for another day or two depending on her progress. She does understand this. Will advance diet at her request also. PROCEDURE NOTE: PREOPERATIVE DIAGNOSIS: Supraglottitis. POSTOPERATIVE DIAGNOSIS: Supraglottis. PROCEDURE: Flexible laryngoscopy. ANESTHESIA: None. COMPLICATIONS: None. BLOOD LOSS: None. FINDINGS: See above-noted history and physical exam note. DESCRIPTION OF PROCEDURE: The patient is in her hospital bed and flexible laryngoscopy was performed through the right nasal cavity with systematic evaluation of the right nasal cavity, nasopharynx, oropharynx, hypopharynx, and larynx with the above-noted findings noted. The patient tolerated the procedure well with no complications. Note that her CT scan did show some mild lymphadenopathy which actually has improved from previous PET scan in December and this will need to be continued to follow up with Dr. Wilson.
[2017-02-16 07:42] LABS: Glucose,Whole Blood 204 mg/dL (75-99)
[2017-02-16 07:47] VITALS: BP 126/79; RESP 15; TEMP 98.6
[2017-02-16] MEDS: DEXAMETHASONE SOD PHOSPHATE 10 MG/ML 1 ML VIAL IV SCH ×2 (07:47→16:05)
[2017-02-16] MEDS: PREGABALIN 75 MG CAP PO SCH ×2 (07:58→16:04)
[2017-02-16] MEDS ORDERED: DEXAMETHASONE SOD PHOSPHATE 4 MG/ML 1 ML VIAL IV SCH (08:00)
[2017-02-16] MEDS: INSULIN LISPRO (humaLOG) 300 UNIT/3 ML VIAL SQ SCH ×3 (08:02→17:48)
[2017-02-16 08:39] VITALS: PULSE 70
[2017-02-16] MEDS ORDERED: CALCIUM CARBONATE 500 MG CHEWABLE PO SCH (09:00)
[2017-02-16] MEDS ORDERED: FAMOTIDINE 20 MG TAB PO SCH (09:00)
[2017-02-16] MEDS ORDERED: LEVOTHYROXINE 75 MCG TAB PO SCH (09:00)
[2017-02-16] MEDS ORDERED: cefTRIAXone 1,000 MG VIAL (IM USE) IM SCH (09:00)
[2017-02-16] MEDS ORDERED: MULTIVITAMINS, THERA 1 EACH TAB PO SCH (09:00)
[2017-02-16] MEDS ORDERED: LEVOTHYROXINE 100 MCG TAB PO SCH (09:00)
[2017-02-16] MEDS ORDERED: INSULIN LISPRO (humaLOG) 300 UNIT/3 ML VIAL SQ ONE (09:01)
[2017-02-16 11:48] LABS: Glucose,Whole Blood 172 mg/dL (75-99)
[2017-02-16 13:40] LABS: Hemoglobin A1C 5.6 % (4.2-6.1)
[2017-02-16 16:34] LABS: Glucose,Whole Blood 231 mg/dL (75-99)
--- NOTE | 2017-02-18 10:51 | DS ---
DATE OF ADMISSION: 02/16/2017 DATE OF DISCHARGE: 02/16/2017 Principal diagnosis is supraglottitis. SECONDARY DIAGNOSES: 1. History of hypothyroidism. 2. History of supraglottic squamous cell carcinoma. DISCHARGE MEDICATIONS: 1. Cefuroxime. 2. Prednisone. 3. Metformin. 4. Levothyroxine. 5. Omeprazole. 6. Simvastatin. 7. 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 She underwent radiotherapy, completing therapy 01/02/2014. She has been doing well overall, and actually had not been seen in my office since last May and was doing well at that point. She was to return in 3 months but has not. She had one-day history of acute onset of feeling some throat swelling and irritation and soreness. She had CT scan in the ER showing some supraglottic swelling, more so than previous comparison on a PET scan a month before. She was therefore admitted for IV steroids and IV antibiotics. Her admission was in the middle of the night. By the next morning, she was already improved, especially likely due to the steroids and flexible laryngoscopy showed diffuse mild erythema and edema of the supraglottis but vocal cords were well visualized. By late afternoon, early evening she was feeling quite well with no further sore throat, no dysphagia, no throat irritation and had no respiratory difficulty throughout the hospitalization. Therefore at this point, I did review with her over the phone options and she did desire to be discharged. She was discharged to home in improved and will be looked after by her mother. She will be on cefuroxime and prednisone and will need to still be seen in my office later this week. Should she have any increase in symptomatology or regression in the meantime, she is to call me immediately for re-evaluation. She does understand this clearly. She will have to have her blood sugars monitored quite closely at home as she does have some tendency towards hyperglycemia already.
[2017-02-19] MEDS ORDERED: ERGOCALCIFEROL 50,000 UNIT CAP PO SCH (00:26)
== END 2017-02-16 21:16 | disposition home or self-care (01) | DRG 153 ==
LOC: EC 22:39 → OBSVTOIN 02-16 00:12 → 3SUR 02-16 00:12
PROVIDERS: ADMIT Otolaryngology; ATTEND Otolaryngology
PROC: 0CJS8ZZ Inspection of Larynx, Via Natural or Artificial Opening Endoscopic (ICD-10-PCS; principal; 2017-02-16)
DX: J04.30 Supraglottitis, unspecified, without obstruction (principal); E11.40 Type 2 diabetes mellitus with diabetic neuropathy, unspecified; E03.9 Hypothyroidism, unspecified; K21.9 Gastro-esophageal reflux disease without esophagitis; G47.30 Sleep apnea, unspecified; M17.12 Unilateral primary osteoarthritis, left knee; G89.29 Other chronic pain; M54.9 Dorsalgia, unspecified; R59.0 Localized enlarged lymph nodes; Z98.84 Bariatric surgery status; Z85.21 Personal history of malignant neoplasm of larynx; Z92.21 Personal history of antineoplastic chemotherapy; Z92.3 Personal history of irradiation; Z91.013 Allergy to seafood; Z91.041 Radiographic dye allergy status; Z87.891 Personal history of nicotine dependence; Z79.899 Other long term (current) drug therapy
CPT/HCPCS: 36415; 70490; 80053; 83036; 85025; 96361; 96365; 96375; 96376; 99285

== ENCOUNTER → 2017-03-18 | Outpatient (CLI) | payer MEDICARE, OTHER | LOC: LABWHC1 09:48 | PROVIDERS: ATTEND Internal Medicine Endocrinology, Diabetes & Metabolism | DX: E03.8 Other specified hypothyroidism (principal) | CPT/HCPCS: 36415; 84443 ==

== ENCOUNTER → 2017-04-04 | Outpatient (CLI) | payer MEDICARE, OTHER | END | disposition home or self-care (01) | LOC: RADMRIMAIN 11:47 | PROVIDERS: ATTEND Anesthesiology Pain Medicine | DX: Z53.9 Procedure and treatment not carried out, unspecified reason (principal) ==

== ENCOUNTER → 2017-04-08 | Outpatient (CLI) | payer MEDICARE, OTHER ==
[2017-04-08 18:35] LABS: Calcium 8.9 mg/dL (8.4-10.2); Potassium 4.5 mmol/L (3.5-5.1); Total Bilirubin 0.5 mg/dL (0.2-1.3); Total Protein 6.8 g/dL (6.3-8.2)
--- NOTE | 2017-04-08 20:17 | MR ---
EXAMINATION TYPE: MR lumbar spine wo/w con DATE OF EXAM: 04/08/2017 COMPARISON: NONE HISTORY: Difficulty walking constant pain x7 years Contrast: 20 mL MultiHance TECHNIQUE: T1 and T2 axial and sagittal, postcontrast T1 sagittal and axial images of the lumbar spi ne are submitted. FINDINGS: Exam limited due to motion artifact. Signal seen within the spinal cord at the T10 level is not included on the axial images may be artifa ctual. Correlate with thoracic MRI. Multilevel severe degenerative disc disease with multilevel vacuu m disc. At T12-L1 there is degenerative disc disease and facet arthropathy broad-based central disc bulging w ith mild bilateral foraminal encroachment and borderline canal stenosis.. At L1-2 there is central disc herniation with facet arthropathy and hypertrophy of the ligamentum fla vum. There is severe canal stenosis and bilateral foraminal encroachment. At L2-3 there is degenerative disc disease with disc bulging circumferentially and a focal central di sc herniation with facet arthropathy and ligamentum flavum hypertrophy and severe canal stenosis with bilateral foraminal encroachment. At L3-4 there is degenerative disc disease with broad-based central disc herniation, facet arthropath y and ligamentum flavum resulting in severe canal stenosis and bilateral foraminal encroachment. At L4-5 there is degenerative disc disease with broad-based central disc herniation, facet arthropath y and ligamentum flavum resulting in severe canal stenosis and bilateral foraminal encroachment. At L5-S1 there is large central and left paracentral disc herniation resulting in marked distortion o f the thecal sac and probable compression of the left nerve root. Severe canal stenosis. Bilateral fo raminal encroachment with facet arthropathy. IMPRESSION: 1. Multilevel disc herniations with hypertrophic changes resulting in multilevel severe canal stenosi s. Large disc herniation seen centrally and paracentrally left at L5-S1. 2. Abnormal signal seen at the T10 level of the spinal cord may be artifactual with no enhancement. T his area is not included on axial exams and could be correlated with thoracic MRI.
== END | disposition home or self-care (01) ==
LOC: RADMRIMAIN 17:50
PROVIDERS: ATTEND Anesthesiology Pain Medicine
DX: M48.06 Spinal stenosis, lumbar region (principal); M51.27 Other intervertebral disc displacement, lumbosacral region; Z79.891 Long term (current) use of opiate analgesic
CPT/HCPCS: 80053; 72158; 36415; A9577

== ENCOUNTER → 2017-04-09 | Outpatient (CLI) | payer MEDICARE, OTHER ==
[2017-04-09 12:14] VITALS: BP 108/69; PULSE 64; RESP 16; TEMP 98.4; BMI 45.3
--- NOTE | 2017-04-22 19:17 | P.PN ---
Progress Note - Text DATE OF SERVICE: 04/09/2017. CHIEF COMPLAINT: Follow-up gastric bypass. HISTORY OF PRESENT ILLNESS: Karina Lord is a 46-year-old female status post gastric bypass on 03/31/2016. She is 1 year out. At her height of 5 feet 4-3/4 inches frame, her ideal body weight is 144 pounds. Highest weight was 364 pounds. Today she comes in weighing 270 pounds. Weight loss is 94 pounds after 12 months. Percent excess weight loss 43%. Body mass index is reduced from 61.2 down to 45.4. Total BMI point reduction is 16 points. She is still 126 pounds overweight. She complains of nausea. Separately she is disappointed with her level weight loss. After further discussion, she reports eating bad foods such as moderate carbohydrates and high caloric meals. She does admit that her diet could be better. Separately, she is not obtaining her recommended amount of over 75 g protein daily. She has a thyroid disorder which is being evaluated by her lug breaker and wire puller. PAST MEDICAL HISTORY: 1. History of thyroid cancer. 2. Morbid obesity. 3. Iatrogenic hypothyroidism. 4. Chronic pain, lower back. 5. Dyslipidemia. 6. Gastroesophageal reflux disease. 7. Diabetes type 2. 8. Prior history of chemoradiation. 9. History of difficult intubation. 10. Osteoarthritis of the left knee. 11. Neuropathy of the hands. 12. Vitamin D deficiency. 13. Obstructive sleep apnea. PAST SURGICAL HISTORY: 1. Tubal ligation. 2. Thyroidectomy. 3. History of chemoradiation for thyroid cancer. 4. Upper endoscopy. 5. Status post gastric bypass. MEDICATIONS: 1. Zantac. 2. Lyrica. 3. Synthroid. 4. [place]. 5. Vitamin D. 6. Calcium. ALLERGIES: SHELLFISH. SOCIAL HISTORY: Past tobacco user 4 years ago. FAMILY HISTORY: Her mother is at bedside. No reports of Crohn disease or ulcerative colitis. No reports of other bariatric procedures in any family members. No reports of DVTs. REVIEW OF SYSTEMS: CONSTITUTIONAL: At her height of 5 feet 4-3/4 inches frame, her ideal body weight is 144 pounds. Highest weight was 364 pounds. Today she comes in weighing 270 pounds. Weight loss is 94 pounds after 12 months. Percent excess weight loss 43%. Body mass index is reduced from 61.2 down to 45.4. Total BMI point reduction is 16 points. She is still 126 pounds HEENT: No reports of dysphagia. History of hoarse voice secondary to radiation to the neck. SKIN: Severe panniculitis including of the abdomen, thighs and arms. ENDOCRINE: History of suppressed thyroid also being managed by her bumper and painter. Diabetes type 2 is completely resolved. CARDIOVASCULAR: She is not on any medications related to blood pressure. No chest pain. RESPIRATORY: Obstructive sleep apnea now with recurrence. No pneumonia. MUSCULOSKELETAL: Otherwise, she has neuropathy of the hands as well as degenerative joint disease of the lower back, left knee and right foot. HEMATOLOGIC: No recent DVTs or pulmonary emboli. GASTROINTESTINAL: Gastroesophageal reflux disease resolved. No reports of blood in stools. No dumping syndrome. NEURO: No reports of stroke or seizure disorder. PSYCH: No reports of active depression or suicidal ideation. PHYSICAL EXAM: VITAL SIGNS: 5 feet 4-3/4 inches frame, 270 pounds. Body mass index of 45.4. Vital Signs Temp 98.4 F 04/09/17 11:35 Pulse 64 04/09/17 11:35 Resp 16 04/09/17 11:35 BP 108/69 04/09/17 11:35 Pulse Ox ABDOMEN: Soft, nontender, nondistended. No palpable incisional hernias. Pannus extends over pubis by over 6 cm with hyperemia. Weight of pannus 10-15 pounds. SKIN: Thighs moderate extensive skin with hyperemic consistent with panniculitis along the abdomen. GENERAL: Well-developed female in no acute distress. HEENT: No scleral icterus. Extraocular ocular movements intact. Moist buccal mucosa. She has hoarse voice. NECK: Supple without lymphadenopathy. Well-healed collar incision. CHEST: Nonlabored respirations with equal bilateral excursions. CARDIOVASCULAR: Regular rate and rhythm. MUSCULOSKELETAL: No clubbing, cyanosis, or edema. NEURO: No focal or lateralizing signs. PSYCH: Appropriate affect. Alert and oriented to person, place and time. LABS: Vitamin D deficiency. Secondary hyperparathyroidism with elevated PTH. ASSESSMENT: 1. Morbid obesity due to excess calories. 2. Body mass index reduced from 61.2 down to 45.4. 3. Status post Tunde-en-Y gastric bypass. 4. Secondary hyperparathyroidism. 5. Diabetes type 2, resolved. 6. Obstructive sleep apnea. 7. Panniculitis of the abdomen. 8. Panniculitis of the bilateral upper thighs. 9. Panniculitis of bilateral upper arms. 10. Stage II renal insufficiency secondary to diabetes. 11. Vitamin D deficiency. PLAN: 1. She is one year out from her procedure and recommend a full bariatric metabolic panel. Her last was in November 2016. 2. Her thyroid disorder is within normal limits at this time. 3. Her main concern includes inadequate weight loss following her procedure. Recommend protein intake over 75 g daily. 4. Alternatives include the 2 week low-calorie high-protein diet that should facilitate weight loss. 5. She reports increased dizziness and her blood pressure is within normal limits. Recommend increase fluid intake. 6. Advise follow-up at least monthly to obtain goal weight loss of 5 pounds monthly.
== END | disposition home or self-care (01) ==
LOC: BARWHC3 09:45
PROVIDERS: ATTEND Surgery Plastic and Reconstructive Surgery
DX: Z09 Encounter for follow-up examination after completed treatment for conditions other than malignant neoplasm (principal); Z98.84 Bariatric surgery status; E66.01 Morbid (severe) obesity due to excess calories; Z68.42 Body mass index [BMI] 45.0-49.9, adult; N25.81 Secondary hyperparathyroidism of renal origin; G47.33 Obstructive sleep apnea (adult) (pediatric); M79.3 Panniculitis, unspecified; E55.9 Vitamin D deficiency, unspecified; E11.22 Type 2 diabetes mellitus with diabetic chronic kidney disease; N18.2 Chronic kidney disease, stage 2 (mild); Z79.899 Other long term (current) drug therapy; E03.2 Hypothyroidism due to medicaments and other exogenous substances
CPT/HCPCS: 97803; G0463; 99211

== ENCOUNTER → 2017-04-30 | Outpatient (CLI) | payer MEDICARE, OTHER ==
--- NOTE | 2017-04-30 13:34 | PN ---
DATE OF SERVICE: 04/30/2017 A 47-year-old lady who has been followed in the Sleep Center for treatment of obstructive sleep apnea-hypopnea syndrome. Patient was diagnosed with severe obstructive sleep apnea-hypopnea syndrome in December of 2015. After that she was started with treatment with CPAP but had difficulties to use CPAP equipment with relationship to the mask and stopped her treatment and returned her CPAP equipment. In 03/31/2013, patient had bariatric surgery and since that time she has lost weight from 354 pounds down to 264 pounds today. Patient continues to have snoring and awakenings from sleep. She feels tiredness and sometime sleepiness during the day, [place] Sleepiness scale increased to 9. Sometimes have difficulties to fall asleep and reinitiate sleep after awakening from sleep. MEDICATIONS: Lyrica, [place], levothyroxine, Zantac, multivitamins. During physical exam, patient in no distress, BP 122/83, HR 84, RR 16, height 5, 4, weight 265, BMI 35.4, neck 16-1/2 inches in circumference, temperature 98.1, saturation at room air 95%. OROPHARYNX: Extremely low position of soft palate. ABDOMEN: Obese. NECK: Supple. No JVD. Thyroid is not palpable. LUNGS: Clear to percussion and to auscultation. Good air exchange. No wheezing or rhonchi. HEART: S1, S2 regular. Bowel sounds are present. No organomegaly appreciated. EXTREMITIES: No clubbing or cyanosis. EVENTS INTERN: Numbness in the left thigh area. IMPRESSION: 1. Snoring, awakenings from sleep. History of obstructive sleep apnea- hypopnea syndrome. 2. Obesity, patient lost around 100 pounds since bariatric surgery last year. 3. Degenerative disc problems. 4. Status post bariatric surgery 03/31/2013. 5. Hypothyroidism. 6. Knee arthritis. 7. Acid reflux. 8. Status post thyroidectomy. 9. 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 PLAN: 1. Polysomnography for re-evaluation of patient's breathing during the sleep at the present time after she lost about 100 pounds of weight. 2. CPAP titration for correction of respiratory abnormalities. 3. Continue losing weight. 4. Sleep hygiene with regular time in bed for at least 8 hours. 5. No driving of feeling any sleepiness. Thank you very much for allowing me to participate in the management of your patient. Sincerely, Oseas Manjarrez MD PhD, FAASM Diplomate of [place] [employer], Sleep Medicine Board by [place] [employer] [place] [employer] Yarn Tester of [facility] [place] [facility] CENTERBrittny
== END | disposition home or self-care (01) ==
LOC: SLEEP 11:14
PROVIDERS: ATTEND Internal Medicine
DX: G47.33 Obstructive sleep apnea (adult) (pediatric) (principal); K21.9 Gastro-esophageal reflux disease without esophagitis; R06.83 Snoring; E66.9 Obesity, unspecified; E03.9 Hypothyroidism, unspecified; Z98.84 Bariatric surgery status

== ENCOUNTER → 2017-06-16 | Outpatient (CLI) | payer MEDICARE, OTHER ==
[2017-06-16 10:06] LABS: Anisocytosis Slight; CHCM 32.9; HCT 37.8 % (34.0-46.0); HDW 2.77; MCH 27.1 pg (25.0-35.0); MCHC 31.7 g/dL (31.0-37.0); MCV 85.6 fL (80.0-100.0); Mean Platelet Volume 7.5; RBC 4.42 m/uL (3.80-5.40); RDW 16.7 % (11.5-15.5); WBC 5.1 k/uL (3.8-10.6)
[2017-06-16 10:27] LABS: Partial Thromboplastin Time 23.5 sec (22.0-30.0); Prothrombin Time 10.3 sec (9.0-12.0)
[2017-06-16 10:31] LABS: Calcium 8.9 mg/dL (8.4-10.2); Magnesium 1.6 mg/dL (1.6-2.3); Phosphorous 5.7 mg/dL (2.5-4.5); Potassium 4.5 mmol/L (3.5-5.1); Total Bilirubin 0.3 mg/dL (0.2-1.3); Total Protein 6.5 g/dL (6.3-8.2)
[2017-06-16 12:12] LABS: Hemoglobin A1C 5.7 % (4.2-6.1)
== END | disposition home or self-care (01) ==
LOC: LABWHC1 09:34
PROVIDERS: ATTEND Surgery Plastic and Reconstructive Surgery
DX: E03.8 Other specified hypothyroidism (principal); E66.01 Morbid (severe) obesity due to excess calories; E21.1 Secondary hyperparathyroidism, not elsewhere classified; E89.1 Postprocedural hypoinsulinemia; D50.8 Other iron deficiency anemias; K90.89 Other intestinal malabsorption; E55.9 Vitamin D deficiency, unspecified; K76.9 Liver disease, unspecified; N19 Unspecified kidney failure; K50.90 Crohn's disease, unspecified, without complications
CPT/HCPCS: 36415; 80053; 80061; 82306; 82525; 82607; 82728; 82746; 83036; 83540; 83550; 83735; 83970; 84100; 84134; 84255; 84425; 84443; 84590; 84630; 85027; 85610; 85730

== ENCOUNTER → 2017-06-25 | Outpatient (CLI) | payer MEDICARE, OTHER ==
--- NOTE | 2017-06-25 22:55 | PN ---
PROGRESS NOTE DATE OF SERVICE: 06/25/2017 47-year-old lady has been followed in sleep center for discussing the results of the sleep studies and plan of the treatment. I discussed results of the study with the patient in detail. Study showed that after she lost about 100 pounds of weight, she improved her respiration during the sleep. At the present time, apnea-hypopnea index is 9.1, in REM sleep 26. The patient continued to have a awakenings from sleep several times. Recently she reported that she has fluctuation of her mood towards depressive mood. The patient explained that her father had maniac depression and suicidal attempts and he did commit suicide. [place] Sleepiness Scale today is 4. MEDICATIONS: 1. Lyrica. 2. [place]. 3. Levothyroxine. 4. Zantac. 5. Multivitamins. PHYSICAL EXAM: A 47-year-old lady without distress BP 125/72, HR 72, RR 16, height 5 feet 5 inches, weight 275.2, BMI 25.5, oxygen saturation at room air 97%. Neck 15 inches in circumference, oropharynx extremely low position of soft palate. Abdomen is obese. NECK: Supple. No JVD. Thyroid is not palpable. LUNGS: Clear to auscultation and percussion. Good air exchange. No wheezing or rhonchi. HEART: S1, S2 regular. No murmurs, gallops or rubs. ABDOMEN: Obese. Soft, nontender. Bowel sounds are preset. No organomegaly appreciated. EXTREMITIES: No clubbing or cyanosis. KITCHEN HELP HANDYMAN: Awake, alert and oriented times three. Cranial nerves 2 to 7 intact. There is no fasciculation or atrophy noted. No focal deficits observed. IMPRESSION: 1. Obstructive sleep apnea-hypopnea syndrome, apnea-hypopnea index 9.5 in REM sleep 26 with oxygen desaturation to 86.4%. 2. Recent fluctuation of the mood tendency for depressive mood. Family history of suicide by her father. 3. Obesity. 4. Degenerative disc problem. 5. Status post bariatric surgery in 2012. 6. Hypothyroidism. 7. Knee arthritis. 8. Acid reflux. 9. Status post thyroidectomy. 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 PLAN: 1. CPAP treatment for correction of respiratory abnormalities during sleep. 2. Continue losing weight. 3. Sleep hygiene with regular time in bed for at least 8 hours. 4. No driving if feeling any sleepiness. 5. Evaluation by her primary care physician for possible depression. Thank you very much for allowing me to participate in management of your patient. Sincerely, Oseas Manjarrez MD, PhD, FAASM Diplomat of [place] [employer]. Sleep Medicine Board by [place] [employer] [place] [employer] Data Consultant of [facility] [place] MMJONO / GUSTAVO: [id number] /
== END | disposition home or self-care (01) ==
LOC: SLEEP 14:29
PROVIDERS: ATTEND Internal Medicine
DX: G47.33 Obstructive sleep apnea (adult) (pediatric) (principal); E66.9 Obesity, unspecified; K21.9 Gastro-esophageal reflux disease without esophagitis; M17.9 Osteoarthritis of knee, unspecified; E89.0 Postprocedural hypothyroidism; Z85.21 Personal history of malignant neoplasm of larynx; Z98.84 Bariatric surgery status; Z79.899 Other long term (current) drug therapy

== ENCOUNTER → 2017-07-02 | Outpatient (CLI) | payer MEDICARE, OTHER, SELFPAY ==
[2017-07-02 09:18] VITALS: BP 111/77; PULSE 80; RESP 20; TEMP 98.6; BMI 44.8
--- NOTE | 2017-07-19 13:18 | P.PN ---
Progress Note - Text DATE OF SERVICE: 07/02/2017. CHIEF COMPLAINT: Follow-up gastric bypass. HISTORY OF PRESENT ILLNESS: Kairna Lord is a 46-year-old female status post gastric bypass on 03/31/2016. She is more than 1 year out from her surgery. At her height of 5 feet 4-3/4 inches frame, her ideal body weight is 144 pounds. Highest weight was 364 pounds. Today she comes in weighing 267 pounds. She has lost 3 pounds in 3 months. Weight loss is 97 pounds, lifetime. Percent excess weight loss 44%. Body mass index is reduced from 61.2 down to 44.8. She is 123 pounds overweight. She comes in complaining of diarrhea. She also reports epigastric abdominal pain. She recently had a stomach flu. She reports fatigue. She is still losing weight. She reports foul flatulence. She has not had a recent upper endoscopy since her surgery. PAST MEDICAL HISTORY: 1. History of thyroid cancer. 2. Morbid obesity. 3. Iatrogenic hypothyroidism. 4. Chronic pain, lower back. 5. Dyslipidemia. 6. Gastroesophageal reflux disease. 7. Diabetes type 2. 8. Prior history of chemoradiation. 9. History of difficult intubation. 10. Osteoarthritis of the left knee. 11. Neuropathy of the hands. 12. Vitamin D deficiency. 13. Obstructive sleep apnea. PAST SURGICAL HISTORY: 1. Tubal ligation. 2. Thyroidectomy. 3. History of chemoradiation for thyroid cancer. 4. Upper endoscopy. 5. Status post gastric bypass. MEDICATIONS: 1. Zantac. 2. Lyrica. 3. Synthroid. 4. [place]. 5. Vitamin D. 6. Calcium. ALLERGIES: SHELLFISH. SOCIAL HISTORY: Past tobacco user 5 years ago. FAMILY HISTORY: Her mother is at bedside. No reports of Crohn disease or ulcerative colitis. No reports of other bariatric procedures in any family members. No reports of DVTs. REVIEW OF SYSTEMS: CONSTITUTIONAL: At her height of 5 feet 4-3/4 inches frame, her ideal body weight is 144 pounds. Highest weight was 364 pounds. Today she comes in weighing 267 pounds. She has lost 3 pounds in 3 months. Weight loss is 97 pounds, lifetime. Percent excess weight loss 44%. Body mass index is reduced from 61.2 down to 44.8. She is 123 pounds overweight. HEENT: No reports of dysphagia. History of hoarse voice secondary to radiation to the neck. SKIN: Severe panniculitis including of the abdomen, thighs and arms. ENDOCRINE: History of suppressed thyroid also being managed by her dental equipment repairer. Diabetes type 2 is completely resolved. CARDIOVASCULAR: She is not on any medications related to blood pressure. No chest pain. RESPIRATORY: Obstructive sleep apnea now with recurrence. No pneumonia. MUSCULOSKELETAL: Otherwise, she has neuropathy of the hands as well as degenerative joint disease of the lower back, left knee and right foot. HEMATOLOGIC: No recent DVTs or pulmonary emboli. GASTROINTESTINAL: Gastroesophageal reflux disease resolved. No reports of blood in stools. No dumping syndrome. NEURO: No reports of stroke or seizure disorder. PSYCH: No reports of active depression or suicidal ideation. SKIN: History of skin ostosis including panniculitis. No skin cancer. PHYSICAL EXAM: VITAL SIGNS: 5 feet 4-3/4 inches frame, 267 pounds. Body mass index of 44.8. Vital Signs Temp 98.6 F 07/02/17 09:09 Pulse 80 07/02/17 09:09 Resp 20 07/02/17 09:09 BP 111/77 07/02/17 09:09 Pulse Ox ABDOMEN: Soft, nontender, nondistended. No palpable large incisional hernias. SKIN: Good skin turgor. Well perfused. GENERAL: Well-developed female in no acute distress. HEENT: No scleral icterus. Extraocular ocular movements intact. Moist buccal mucosa. She has hoarse voice. NECK: Supple without lymphadenopathy. Well-healed collar incision. CHEST: Nonlabored respirations with equal bilateral excursions. CARDIOVASCULAR: Regular rate and rhythm. MUSCULOSKELETAL: No clubbing, cyanosis, or edema. NEURO: No focal or lateralizing signs. PSYCH: Appropriate affect. Alert and oriented to person, place and time. LABS: Labs reviewed demonstrating zinc deficiency, secondary hyperparathyroidism with elevated PTH, elevated selenium level, elevated total cholesterol 217, elevated LDL, creatinine elevated and stable at 1.4. ASSESSMENT: 1. Morbid obesity due to excess calories. 2. Body mass index reduced from 61.2 down to 44.8. 3. Status post Tunde-en-Y gastric bypass. 4. Secondary hyperparathyroidism. 5. Diabetes type 2, resolved. 6. Obstructive sleep apnea. 7. Panniculitis of the abdomen. 8. Panniculitis of the bilateral upper thighs. 9. Panniculitis of bilateral upper arms. 10. Stage II renal insufficiency secondary to diabetes. 11. Vitamin D deficiency. 12. Epigastric abdominal pain. 13. Flatulence. 14. Recent stomach flu. 15. Zinc deficiency. 16. Secondary hyperparathyroidism. 17. Elevated selenium. 18. Hypercholesterolemia. PLAN: 1. Although she is more than 1 year out, she continues to lose weight. She was encouraged to continue with her present goals. 2. She has epigastric abdominal pain including reflux disease. Recommend upper endoscopy for evaluation of gastrojejunal anastomotic stricture. 3. With her abdominal pain including intermittent diarrhea, and internal hernia cannot be excluded. Recommend CT of the abdomen pelvis. 4. Recommend zinc supplement 50 mg daily. 5. Recommend calcium intake at least 1200 mg daily to address secondary hyperparathyroidism.
== END ==
LOC: BARWHC3 08:49
PROVIDERS: ATTEND Surgery Plastic and Reconstructive Surgery
DX: Z48.815 Encounter for surgical aftercare following surgery on the digestive system (principal); E66.01 Morbid (severe) obesity due to excess calories; E21.1 Secondary hyperparathyroidism, not elsewhere classified; G47.33 Obstructive sleep apnea (adult) (pediatric); M79.3 Panniculitis, unspecified; N28.9 Disorder of kidney and ureter, unspecified; E55.9 Vitamin D deficiency, unspecified; R14.3 Flatulence; J11.1 Influenza due to unidentified influenza virus with other respiratory manifestations; E60 Dietary zinc deficiency; E78.00 Pure hypercholesterolemia, unspecified; Z68.41 Body mass index [BMI] 40.0-44.9, adult; Z79.899 Other long term (current) drug therapy; Z87.19 Personal history of other diseases of the digestive system; Z91.013 Allergy to seafood; Z98.84 Bariatric surgery status
CPT/HCPCS: 97803; G0463; 99211

== ENCOUNTER 2017-09-02 07:43 | Day surgery (SDC) | payer MEDICARE, OTHER ==
[2017-08-27 18:16] VITALS: BMI 46.0
[~2017-09-02 07:43] MED LIST: LACTATED RINGERS 1,000 ML IV SCH; LIDOCAINE 1% 20 ML VIAL (10MG/ML) FOR IV START INTRADERMA PRN
--- NOTE | 2017-09-02 08:02 | P.GSHP ---
History of Present Illness H&P Date: 09/02/17 CHIEF COMPLAINT: GERD HISTORY OF PRESENT ILLNESS: The patient is a 47-year-old female who presents reports gastroesophageal reflux disease. Upper endoscopy was offered for further evaluation and management. PAST MEDICAL HISTORY: Please see list. PAST SURGICAL HISTORY: Please see list. MEDICATIONS: Please see list. ALLERGIES: Please see list. SOCIAL HISTORY: No illicit drug use FAMILY HISTORY: No reports of Crohn disease or ulcerative colitis. REVIEW OF ORGAN SYSTEMS: CONSTITUTIONAL: No reports of fevers or chills. GI: Denies any blood in stools or constipation. PHYSICAL EXAM: VITAL SIGNS: Stable GENERAL: Well-developed and pleasant in no acute distress. HEENT: No scleral icterus. Extraocular movements grossly intact. Moist buccal mucosa. NECK: Supple without lymphadenopathy. CHEST: Unlabored respirations. Equal bilateral excursions. CARDIOVASCULAR: Regular rate and rhythm. Distal 2+ pulses. ABDOMEN: Soft, nondistended. MUSCULOSKELETAL: No clubbing, cyanosis, or edema. ASSESSMENT: 1. Gastroesophageal reflux disease PLAN: 1. Recommend proceeding with an upper endoscopy Past Medical History Past Medical History: Cancer, Diabetes Mellitus, GERD/Reflux, Osteoarthritis (OA ), Renal Disease, Sleep Apnea/CPAP/BIPAP, Thyroid Disorder Additional Past Medical History / Comment(s): Throat cancer w/ radiation and chemo(2012), NOW A NARROWING, difficult intubation, HOARSENESS IN VOICE. Arthritis left knee. Neuropathy in hands, DDD, Chronic Back Pain - RECENT STEROID INJ IN PAST 08/19/17 - NOW CAUSING BS TO ELEVATE (WAS OFF DM PO RX FOR 1 YR). NO TX FOR SLEEP APNEA NOW. History of Any Multi-Drug Resistant Organisms: None Reported Past Surgical History: Bariatric Surgery, Tubal Ligation Additional Past Surgical History / Comment(s): Thyroidectomy. DIFFICULT INTUBATION R/T THROAT CA RADIATION AND CHEMO. 03-31-16 VIVIAN-EN -Y. Past Anesthesia/Blood Transfusion Reactions: No Reported Reaction Additional Past Anesthesia/Blood Transfusion Reaction / Comment(s): no history of blood transfusion. THROAT NARROWING SINCE CHEMO, RADIATION, DIFFICULT INTUBATION. Smoking Status: Former smoker - Past Family History Mother Family Medical History: Hyperlipidemia, Liver Disease Additional Family Medical History / Comment(s): HEPATITIS Father Additional Family Medical History / Comment(s): manic depressive, from suicide, ulcers-half of stomach removed Medications and Allergies Home Medications Medication Instructions Recorded Confirmed Type HYDROcodone/APAP 7.5-325MG [[place] 1 tab PO TID PRN 12/12/16 08/27/17 History 7.5-325] Levothyroxine Sodium [Synthroid] 175 mcg PO DAILY 12/12/16 08/27/17 History Pregabalin [Lyrica] 150 mg PO TID 12/12/16 08/27/17 History Multivitamins, Thera [Multivitamin 1 tab PO DAILY 02/16/17 08/27/17 History (formulary)] Ranitidine HCl [Zantac] 150 mg PO BID #180 tab 07/15/17 08/27/17 Rx Dapagliflozin Propanediol [Farxiga] 10 mg PO DAILY PRN 08/27/17 08/27/17 History Methocarbamol [Robaxin] 500 mg PO TID PRN 08/27/17 08/27/17 History Allergies Allergy/AdvReac Type Severity Reaction Status Date / Time shellfish derived AdvReac Unknown Nausea & Verified 08/27/17 17:47 Vomiting & Diarrhea Iodinated Contrast- Oral and AdvReac KIDNEY Verified 08/27/17 17:47 IV Dye DISEASE [Iodinated Contrast Media - Oral and]
[2017-09-02 08:32] VITALS: RESP 16; TEMP 97.9
[2017-09-02] MEDS ORDERED: PROPOFOL 10 MG/ML 20 ML VIAL IV ONE (08:34)
[2017-09-02] MEDS ORDERED: GLYCOPYRROLATE 0.2 MG/ML 2 ML VIAL ONE (08:34)
[2017-09-02] MEDS ORDERED: LIDOCAINE 1% INJ 10MG/ML (20 ML MDV) ONE (08:34)
[2017-09-02 08:37] LABS: Glucose,Whole Blood 95 mg/dL (75-99)
--- NOTE | 2017-09-02 08:52 | P.PCN ---
Date of Procedure: 09/02/17 Description of Procedure: PREOPERATIVE DIAGNOSIS: Dysphagia. Nausea with vomiting. Morbid obesity. Diabetes type 2. POSTOPERATIVE DIAGNOSIS: Dysphagia. Nausea with vomiting. Morbid obesity. Diabetes type 2. 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 Gastric stricture. OPERATION: Esophagogastrojejunoscopy with balloon dilatation, 20 mm. Esophagogastrojejunoscopy with biopsies of the gastric pouch. SURGEON: Kisha Malone MD ANESTHESIA: MAC. INDICATIONS: The patient is a 47-year-old female who presents with a history of dysphagia including nausea and vomiting. Benefits and risks of the procedure were described. Informed consent was obtained. DESCRIPTION: The patient was brought into the endoscopy suite and laid in the left lateral decubitus position. After a timeout was confirmed, the procedure was initiated. An Olympus gastroscope was passed along the posterior oropharynx down to the distal esophagus where the squamocolumnar junction was unremarkable. The gastric pouch was entered. A gastrojejunal stricture of 18 mm was found as the adult gastroscope was 9.5 mm in size. A Cennox balloon dilator was placed through the scope. Final insufflation up to 20 mm was performed with a total of 2 minutes. The scope was advanced up to 60 cm from the incisors into the [place] limb. The mucosa of the gastrojejunal anastomosis was intact. No chronic gastrojejunal marginal ulcer was encountered. No full-thickness injury was encountered. A questionable gastric gastric fistula was identified with distortion of the gastric pouch. The GI tract was desufflated. The patient tolerated the procedure well. FINDINGS: Squamocolumnar junction unremarkable at 40 cm. Stricture of approximately 18 mm encountered. 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 No chronic gastrojejunal ulceration encountered. Successful balloon dilatation to 20 mm. Gastric pouch 5 cm. RECOMMENDATIONS: Recommend a rigid dilator for proximal esophageal stricture from prior radiation. Upper endoscopy as needed. Plan - Discharge Summary New Discharge Prescriptions: No Action HYDROcodone/APAP 7.5-325MG [[place] 7.5-325] 1 tab PO TID PRN PRN Reason: Pain Levothyroxine Sodium [Synthroid] 175 mcg PO DAILY Pregabalin [Lyrica] 150 mg PO TID Multivitamins, Thera [Multivitamin (formulary)] 1 tab PO DAILY Ranitidine HCl [Zantac] 150 mg PO BID #180 tab Methocarbamol [Robaxin] 500 mg PO TID PRN PRN Reason: Pain Dapagliflozin Propanediol [Farxiga] 10 mg PO DAILY PRN PRN Reason: ELEV BS Discharge Medication List HYDROcodone/APAP 7.5-325MG [[place] 7.5-325] 1 tab PO TID PRN 12/12/16 [History] Levothyroxine Sodium [Synthroid] 175 mcg PO DAILY 12/12/16 [History] Pregabalin [Lyrica] 150 mg PO TID 12/12/16 [History] Multivitamins, Thera [Multivitamin (formulary)] 1 tab PO DAILY 02/16/17 [History ] Ranitidine HCl [Zantac] 150 mg PO BID #180 tab 07/15/17 [Rx] Dapagliflozin Propanediol [Farxiga] 10 mg PO DAILY PRN 08/27/17 [History] Methocarbamol [Robaxin] 500 mg PO TID PRN 08/27/17 [History]
[2017-09-02 09:14] VITALS: BP 116/78; PULSE 61
== END 2017-09-02 09:46 | disposition home or self-care (01) ==
LOC: ORWHC2ENDO 07:43
PROVIDERS: ATTEND Surgery Plastic and Reconstructive Surgery
DX: K21.9 Gastro-esophageal reflux disease without esophagitis (principal); K31.89 Other diseases of stomach and duodenum; K29.50 Unspecified chronic gastritis without bleeding; K22.2 Esophageal obstruction; Z98.84 Bariatric surgery status; M19.90 Unspecified osteoarthritis, unspecified site; N28.9 Disorder of kidney and ureter, unspecified; E07.9 Disorder of thyroid, unspecified; G47.33 Obstructive sleep apnea (adult) (pediatric); Z85.21 Personal history of malignant neoplasm of larynx; Z87.891 Personal history of nicotine dependence; E66.01 Morbid (severe) obesity due to excess calories; Z68.42 Body mass index [BMI] 45.0-49.9, adult; E11.9 Type 2 diabetes mellitus without complications; Z79.899 Other long term (current) drug therapy; Z91.041 Radiographic dye allergy status; Z91.013 Allergy to seafood
CPT/HCPCS: 88305; 88342; 43239; 43249; J2001; J2704; C1726

== ENCOUNTER → 2017-09-04 | Outpatient (CLI) | payer MEDICARE, OTHER ==
--- NOTE | 2017-09-04 13:48 | XR ---
Bilateral feet HISTORY: Pain 3 views of each foot submitted. 6 images. Degenerative changes are present at the first metatarsophalangeal joint, interphalangeal joints. Alig nment and bone mineralization are maintained. No fracture or dislocation. Plantar calcaneus spur is p resent. Spurring and joint space loss at the intertarsal joints, tibiotalar joints. IMPRESSION: Osteoarthritis.
== END | disposition home or self-care (01) ==
LOC: RADXRMAIN 12:52
PROVIDERS: ATTEND Anesthesiology Pain Medicine
DX: M19.072 Primary osteoarthritis, left ankle and foot (principal); M19.071 Primary osteoarthritis, right ankle and foot

== ENCOUNTER → 2017-09-09 | Outpatient (CLI) | payer MEDICARE, OTHER ==
[2017-09-09 13:01] VITALS: BP 107/75; PULSE 84; RESP 16; TEMP 98.6; BMI 44.9
--- NOTE | 2017-11-01 18:40 | P.PN ---
Subjective Progress Note Date: 09/09/17 DATE OF SERVICE: 09/09/2017. CHIEF COMPLAINT: Follow-up gastric bypass. HISTORY OF PRESENT ILLNESS: Karina Lord is a 46-year-old female status post gastric bypass on 03/31/2016. She is more than 1.5 years out from her surgery. At her height of 5 feet 4-3/4 inches frame, her ideal body weight is 144 pounds. Highest weight was 364 pounds. Today she comes in weighing 267 pounds. Her weight has been unchanged in 2 months. Weight loss is 97 pounds, lifetime. Percent excess weight loss 45%. Body mass index is reduced from 61.2 down to 44.9. She is 118 pounds overweight. She reports troubles with epigastric abdominal pain. She has history of hoarseness. She reports troubles with dysphagia including tablets. PAST MEDICAL HISTORY: 1. History of thyroid cancer. 2. Morbid obesity. 3. Iatrogenic hypothyroidism. 4. Chronic pain, lower back. 5. Dyslipidemia. 6. Gastroesophageal reflux disease. 7. Diabetes type 2. 8. Prior history of chemoradiation. 9. History of difficult intubation. 10. Osteoarthritis of the left knee. 11. Neuropathy of the hands. 12. Vitamin D deficiency. 13. Obstructive sleep apnea. PAST SURGICAL HISTORY: 1. Tubal ligation. 2. Thyroidectomy. 3. History of chemoradiation for thyroid cancer. 4. Upper endoscopy. 5. Status post gastric bypass. MEDICATIONS: 1. Zantac. 2. Lyrica. 3. Synthroid. 4. [place]. 5. Vitamin D. 6. Calcium. ALLERGIES: SHELLFISH. SOCIAL HISTORY: Past tobacco user 5 years ago. FAMILY HISTORY: Her mother is at bedside. No reports of Crohn disease or ulcerative colitis. No reports of other bariatric procedures in any family members. No reports of DVTs. REVIEW OF SYSTEMS: CONSTITUTIONAL: At her height of 5 feet 4-3/4 inches frame, her ideal body weight is 144 pounds. Highest weight was 364 pounds. Today she comes in weighing 267 pounds. She has lost 3 pounds in 3 months. Weight loss is 97 pounds, lifetime. Percent excess weight loss 44%. Body mass index is reduced from 61.2 down to 44.8. She is 123 pounds overweight. HEENT: No reports of dysphagia. History of hoarse voice secondary to radiation to the neck. SKIN: Severe panniculitis including of the abdomen, thighs and arms. ENDOCRINE: History of suppressed thyroid also being managed by her day care teacher. Diabetes type 2 is completely resolved. CARDIOVASCULAR: She is not on any medications related to blood pressure. No chest pain. RESPIRATORY: Obstructive sleep apnea now with recurrence. No pneumonia. MUSCULOSKELETAL: Otherwise, she has neuropathy of the hands as well as degenerative joint disease of the lower back, left knee and right foot. HEMATOLOGIC: No recent DVTs or pulmonary emboli. GASTROINTESTINAL: Gastroesophageal reflux disease resolved. No reports of blood in stools. No dumping syndrome. NEURO: No reports of stroke or seizure disorder. PSYCH: No reports of active depression or suicidal ideation. SKIN: History of skin ostosis including panniculitis. No skin cancer. PHYSICAL EXAM: VITAL SIGNS: 5 feet 4-3/4 inches frame, 267 pounds. Body mass index of 44.9. Vital Signs Temp 98.6 F 09/09/17 12:59 Pulse 84 09/09/17 12:59 Resp 16 09/09/17 12:59 BP 107/75 09/09/17 12:59 Pulse Ox ABDOMEN: Soft, nontender, nondistended. No palpable large incisional hernias. SKIN: Good skin turgor. Well perfused. GENERAL: Well-developed female in no acute distress. HEENT: No scleral icterus. Extraocular ocular movements intact. Moist buccal mucosa. She has hoarse voice. NECK: Supple without lymphadenopathy. Well-healed collar incision. CHEST: Nonlabored respirations with equal bilateral excursions. CARDIOVASCULAR: Regular rate and rhythm. MUSCULOSKELETAL: No clubbing, cyanosis, or edema. NEURO: No focal or lateralizing signs. PSYCH: Appropriate affect. Alert and oriented to person, place and time. STUDIES: EGD FINDINGS: Squamocolumnar junction unremarkable at 40 cm. Stricture of approximately 18 mm encountered. 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 No chronic gastrojejunal ulceration encountered. Successful balloon dilatation to 20 mm. Gastric pouch 5 cm. ASSESSMENT: 1. Morbid obesity due to excess calories. 2. Body mass index reduced from 61.2 down to 44.9. 3. Status post [place]-en-Y gastric bypass. 4. Secondary hyperparathyroidism. 5. History of dysphagia. 6. Gastroesophageal reflux disease. 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 9. Hoarseness PLAN: 1. With findings of gastric gastric fistula, recommend revision of gastrojejunal anastomosis. 2. She has history of esophageal stricture. Upper endoscopy performed with some improvement in her epigastric abdominal pain. 3. She has trouble of dysphagia and recommended rigid dilation of upper esophageal sphincter. Objective - Vital Signs Vital signs: Vital Signs Temp 98.6 F 09/09/17 12:59 Pulse 84 09/09/17 12:59 Resp 16 09/09/17 12:59 BP 107/75 09/09/17 12:59 Pulse Ox Intake & Output 09/08/17 09/09/17 09/09/17 18:59 06:59 18:59 Weight 121.364 kg
== END | disposition home or self-care (01) ==
LOC: BARWHC3 12:29
PROVIDERS: ATTEND Surgery Plastic and Reconstructive Surgery
DX: Z09 Encounter for follow-up examination after completed treatment for conditions other than malignant neoplasm (principal); E66.01 Morbid (severe) obesity due to excess calories; N25.81 Secondary hyperparathyroidism of renal origin; K21.9 Gastro-esophageal reflux disease without esophagitis; K22.2 Esophageal obstruction; K31.6 Fistula of stomach and duodenum; E03.2 Hypothyroidism due to medicaments and other exogenous substances; M17.12 Unilateral primary osteoarthritis, left knee; Z68.41 Body mass index [BMI] 40.0-44.9, adult; Z85.850 Personal history of malignant neoplasm of thyroid; Z87.891 Personal history of nicotine dependence; Z79.899 Other long term (current) drug therapy; Z98.84 Bariatric surgery status; Z98.890 Other specified postprocedural states
CPT/HCPCS: 99211

== ENCOUNTER 2017-10-07 08:44 | Day surgery (SDC) | payer MEDICARE, OTHER ==
[2017-10-06 09:51] VITALS: BMI 44.9
[2017-10-07 09:02] VITALS: RESP 16; TEMP 97.2
--- NOTE | 2017-10-07 09:17 | P.GSHP ---
History of Present Illness H&P Date: 10/07/17 CHIEF COMPLAINT: Esophageal stricture HISTORY OF PRESENT ILLNESS: The patient is a 47-year-old female who presents reports dysphagia. Upper endoscopy was offered for further evaluation and management. PAST MEDICAL HISTORY: Please see list. PAST SURGICAL HISTORY: Please see list. MEDICATIONS: Please see list. ALLERGIES: Please see list. SOCIAL HISTORY: No illicit drug use FAMILY HISTORY: No reports of Crohn disease or ulcerative colitis. REVIEW OF ORGAN SYSTEMS: CONSTITUTIONAL: No reports of fevers or chills. GI: Denies any blood in stools or constipation. PHYSICAL EXAM: VITAL SIGNS: Stable GENERAL: Well-developed and pleasant in no acute distress. HEENT: No scleral icterus. Extraocular movements grossly intact. Moist buccal mucosa. NECK: Supple without lymphadenopathy. CHEST: Unlabored respirations. Equal bilateral excursions. CARDIOVASCULAR: Regular rate and rhythm. Distal 2+ pulses. ABDOMEN: Soft, nondistended. MUSCULOSKELETAL: No clubbing, cyanosis, or edema. ASSESSMENT: 1. Esophageal stricture PLAN: 1. Recommend proceeding with an upper endoscopy with rigid dilators. Past Medical History Past Medical History: Cancer, Diabetes Mellitus, GERD/Reflux, Osteoarthritis (OA ), Renal Disease, Sleep Apnea/CPAP/BIPAP, Thyroid Disorder Additional Past Medical History / Comment(s): throat cancer w/ radiation and chemo(2012), difficult intubation, degenerative disc disease ,stenosis , chronic back pain (surgery scheduled Nov 2017), Recieves steroid injections for back pain., neuropathy in hands, hx of sleep apnea (improved with wt loss)., diabetes improved with wt loss- no meds- watches diet., Type 3 kidney disease. History of Any Multi-Drug Resistant Organisms: None Reported Past Surgical History: Bariatric Surgery, Tubal Ligation Additional Past Surgical History / Comment(s): thyroidectomy, VIVIAN-EN -Y (2015 ). Past Anesthesia/Blood Transfusion Reactions: No Reported Reaction Additional Past Anesthesia/Blood Transfusion Reaction / Comment(s): Difficult intubation due to throat cancer with chemo & radiation tx. Past Psychological History: No Psychological Hx Reported Smoking Status: Former smoker Past Alcohol Use History: None Reported Additional Past Alcohol Use History / Comment(s): SMOKED FOR 26 YEARS. SMOKED 1PPD, QUIT 2013 Past Drug Use History: None Reported - Past Family History Mother Family Medical History: Hyperlipidemia, Liver Disease Additional Family Medical History / Comment(s): HEPATITIS Father Additional Family Medical History / Comment(s): manic depressive, from suicide, ulcers-half of stomach removed Medications and Allergies Home Medications Medication Instructions Recorded Confirmed Type HYDROcodone/APAP 7.5-325MG [[place] 1 tab PO TID PRN 12/12/16 10/07/17 History 7.5-325] Levothyroxine Sodium [Synthroid] 175 mcg PO DAILY 12/12/16 10/07/17 History Pregabalin [Lyrica] 150 mg PO TID 12/12/16 10/07/17 History Multivitamins, Thera [Multivitamin 1 tab PO DAILY 02/16/17 10/07/17 History (formulary)] Ranitidine HCl [Zantac] 150 mg PO BID #180 tab 07/15/17 10/07/17 Rx Cyclobenzaprine [Flexeril] 10 mg PO TID PRN 09/09/17 10/07/17 History valACYclovir [Valtrex] 500 mg PO TID 10/06/17 10/07/17 History Allergies Allergy/AdvReac Type Severity Reaction Status Date / Time shellfish derived AdvReac Unknown Nausea & Verified 10/06/17 09:16 Vomiting & Diarrhea Iodinated Contrast- Oral and AdvReac KIDNEY Verified 10/06/17 09:38 IV Dye DISEASE, [Iodinated Contrast Media - shell fish Oral and] allergy Surgical - Exam Vital Signs Temp Pulse Resp BP Pulse Ox 97.2 F L 84 16 107/69 96 10/07/17 08:58 10/07/17 08:58 10/07/17 08:58 10/07/17 08:58 10/07/17 08:58
[2017-10-07] MEDS ORDERED: PROPOFOL 10 MG/ML 20 ML VIAL IV ONE (09:42)
[2017-10-07] MEDS ORDERED: LIDOCAINE 1% INJ 10MG/ML (20 ML MDV) ONE (09:42)
--- NOTE | 2017-10-07 10:06 | P.PCN ---
Date of Procedure: 10/07/17 Description of Procedure: PREOPERATIVE DIAGNOSIS: Dysphagia. History of radiation to the neck. Gastroesophageal reflux disease. POSTOPERATIVE DIAGNOSIS: Dysphagia. History of radiation to the neck. Gastroesophageal reflux disease. OPERATION: Esophagogastroduojejunoscopy rigid Dominican dilator 48, 54 Fr, upper esophageal sphincter. SURGEON: Kisha Malone MD ANESTHESIA: MAC. INDICATIONS: The patient is a 47-year-old female who presents with history of hypertensive upper esophageal sphincter. She reports troubles with swallowing pills along her upper throat. Separately, she reports new onset epigastric abdominal pain radiating to the right upper quadrant. Upper endoscopy was offered for further diagnostic evaluation and treatment. DESCRIPTION: The patient was brought into the endoscopy suite and laid in the left lateral decubitus position. An Olympus gastroscope was carefully passed along the posterior oropharynx. Upon entry into the proximal esophagus, a moderate stricture was identified consistent with moderate scarring along the upper esophageal sphincter. No erosion were found along the distal esophagus or ulcerations. The gastric pouch was entered and acute gastritis along the antrum with bleeding was identified. The scope was passed to 60 cm from the incisors and unremarkable. A large dilated gastric pouch was confirmed. A guidewire was placed through the scope into the stomach. The scope was removed. A 48-Zimbabwean to 54-Fr rigid dilator was placed to 40 cm from the incisors. The dilator was left in place between 2-3 minutes. The dilator and guidewire were removed. The scope was reentered along the proximal esophagus whereby the stricture had resolved of the upper esophagus. No full-thickness injury was found along the mucosa. The stomach was desufflated. The patient tolerated the procedure well. FINDINGS: Hyperemic along the posterior oropharynx with scarring of the upper esophageal sphincter. Dilation of upper esophageal sphincter to 54-Zimbabwean rigid dilator. RECOMMENDATIONS: Further recommendations pending results of pathology report. Upper endoscopy as needed. Plan - Discharge Summary New Discharge Prescriptions: No Action HYDROcodone/APAP 7.5-325MG [[place] 7.5-325] 1 tab PO TID PRN PRN Reason: Pain Levothyroxine Sodium [Synthroid] 175 mcg PO DAILY Pregabalin [Lyrica] 150 mg PO TID Multivitamins, Thera [Multivitamin (formulary)] 1 tab PO DAILY Ranitidine HCl [Zantac] 150 mg PO BID #180 tab Cyclobenzaprine [Flexeril] 10 mg PO TID PRN PRN Reason: Pain valACYclovir [Valtrex] 500 mg PO TID Discharge Medication List HYDROcodone/APAP 7.5-325MG [[place] 7.5-325] 1 tab PO TID PRN 12/12/16 [History] Levothyroxine Sodium [Synthroid] 175 mcg PO DAILY 12/12/16 [History] Pregabalin [Lyrica] 150 mg PO TID 12/12/16 [History] Multivitamins, Thera [Multivitamin (formulary)] 1 tab PO DAILY 02/16/17 [History ] Ranitidine HCl [Zantac] 150 mg PO BID #180 tab 07/15/17 [Rx] Cyclobenzaprine [Flexeril] 10 mg PO TID PRN 09/09/17 [History] valACYclovir [Valtrex] 500 mg PO TID 10/06/17 [History]
[2017-10-07 10:26] VITALS: BP 116/76; PULSE 67
--- NOTE | 2017-10-14 06:00 | CDI ---
Date: 10/14/17 CDS/Ostrich Farmer Name: Audrey Vital Phone: If you have question, contact Jasmin Bravo, Reconciliation Manager at M-F 8:30 am to 6pm. Patient Name: Karina Lord Admit Date: 10/07/17 Discharge Date: 10/07/17 ATTENTION: The Clinical Documentation Specialists (CDI) and [facility] Coding Staff appreciate your assistance in clarifying documentation. Please respond to the clarification below the line at the bottom and electronically sign. The CDI & [facility] Coding staff will review the response and follow-up if needed. Please note: Queries are made part of the Legal Health Record. If you have any questions, please contact the author of this message via ITS or call the Reconciliation Manager. , Please provide the size to which the esophageal sphincter was dilated. (this information is in the procedure note under findings, please see below) Thank you for your assistance. FINDINGS: Hyperemic along the posterior oropharynx with scarring of the upper esophageal sphincter. Dilation of upper esophageal sphincter to 54-Faroese rigid dilator.<--------- KM 10/14/17 [facility] CENTERBrittny
--- NOTE | 2017-10-15 13:01 | CDI ---
Date: 10/15/17 CDS/Comb Setter Name: Audrey Vital Phone: If you have question, contact Jasmin Braov, [employer] Design Architect at M-F 8:30 am to 6pm. Patient Name: Karina Lord Admit Date: 10/07/17 Discharge Date: 10/07/17 ATTENTION: The Clinical Documentation Specialists (CDI) and [facility] Coding Staff appreciate your assistance in clarifying documentation. Please respond to the clarification below the line at the bottom and electronically sign. The CDI & [facility] Coding staff will review the response and follow-up if needed. Please note: Queries are made part of the Legal Health Record. If you have any questions, please contact the author of this message via ITS or call the Analog I[employer] Design Architect. , Thank you for your previous response. Please provide additional clarification as to how many centimeters the esophagus was dilated to with the 54- Swedish dilator. Thank you for your assistance. The equipment for rigid dilation is only supplied in Swedish NOT cm or mm.......You would need a calculator to figure the conversion MTDD
== END 2017-10-07 10:50 | disposition home or self-care (01) ==
LOC: ORWHC2ENDO 08:44
PROVIDERS: ATTEND Surgery Plastic and Reconstructive Surgery
DX: K22.2 Esophageal obstruction (principal); Z92.3 Personal history of irradiation; Z92.21 Personal history of antineoplastic chemotherapy; Z85.21 Personal history of malignant neoplasm of larynx; K29.01 Acute gastritis with bleeding; K22.8 Other specified diseases of esophagus; K31.89 Other diseases of stomach and duodenum; K21.9 Gastro-esophageal reflux disease without esophagitis; E66.01 Morbid (severe) obesity due to excess calories; Z68.41 Body mass index [BMI] 40.0-44.9, adult; Z98.84 Bariatric surgery status; G47.30 Sleep apnea, unspecified; Z99.89 Dependence on other enabling machines and devices; E11.22 Type 2 diabetes mellitus with diabetic chronic kidney disease; E11.42 Type 2 diabetes mellitus with diabetic polyneuropathy; N18.3 Chronic kidney disease, stage 3 (moderate); E89.0 Postprocedural hypothyroidism; E07.9 Disorder of thyroid, unspecified; R49.0 Dysphonia; Z87.891 Personal history of nicotine dependence; M19.90 Unspecified osteoarthritis, unspecified site; G89.29 Other chronic pain; Z79.899 Other long term (current) drug therapy; Z91.041 Radiographic dye allergy status; Z91.013 Allergy to seafood
CPT/HCPCS: 81025; 43248; J2001; J2704; 43249

== ENCOUNTER → 2017-10-21 | Outpatient (CLI) | payer MEDICARE, OTHER | END | disposition home or self-care (01) | LOC: LABWHC1 12:41 | PROVIDERS: ATTEND Internal Medicine Endocrinology, Diabetes & Metabolism | DX: E03.8 Other specified hypothyroidism (principal) | CPT/HCPCS: 36415; 84443 ==

== ENCOUNTER → 2017-10-28 | Outpatient (CLI) | payer MEDICARE, OTHER ==
[2017-10-28 15:13] VITALS: BP 119/81; PULSE 78; RESP 15; TEMP 98.1; BMI 46.9
--- NOTE | 2017-12-19 15:14 | P.PN ---
Subjective Progress Note Date: 10/28/17 DATE OF SERVICE: 10/28/2017. CHIEF COMPLAINT: Follow-up gastric bypass. HISTORY OF PRESENT ILLNESS: Karina Lord is a 47-year-old female status post gastric bypass on 03/31/2016. She is more than 1.5 years out from her surgery. At her height of 5 feet 4-3/4 inches frame, her ideal body weight is 144 pounds. Highest weight was 364 pounds. Today she comes in weighing 279 pounds. She has gained 12 pounds in 3 months. Weight loss is 85 pounds, lifetime. Percent excess weight loss 38%. Body mass index is reduced from 61.2 down to 46.9. She is 135 pounds overweight. She completed an upper endoscopy with bougie dilation. She reports no moderate improvement of her symptoms of dysphagia. Separately gastric pouch is consistent with anatomical abnormality. She reports chronic abdominal pain. She has history of vocal cord paralysis. She continues to take Zantac. She is very unhappy with her weight gain of 12 pounds. She has history of thyroid disorder. PAST MEDICAL HISTORY: 1. History of thyroid cancer. 2. Morbid obesity. 3. Iatrogenic hypothyroidism. 4. Chronic pain, lower back. 5. Dyslipidemia. 6. Gastroesophageal reflux disease. 7. Diabetes type 2. 8. Prior history of chemoradiation. 9. History of difficult intubation. 10. Osteoarthritis of the left knee. 11. Neuropathy of the hands. 12. Vitamin D deficiency. 13. Obstructive sleep apnea. PAST SURGICAL HISTORY: 1. Tubal ligation. 2. Thyroidectomy. 3. History of chemoradiation for thyroid cancer. 4. Upper endoscopy. 5. Status post gastric bypass. MEDICATIONS: 1. Zantac. 2. Lyrica. 3. Synthroid. 4. [place]. 5. Vitamin D. 6. Calcium. ALLERGIES: SHELLFISH. SOCIAL HISTORY: Past tobacco user 5 years ago. FAMILY HISTORY: Her mother is at bedside. No reports of Crohn disease or ulcerative colitis. No reports of other bariatric procedures in any family members. No reports of DVTs. REVIEW OF SYSTEMS: CONSTITUTIONAL: At her height of 5 feet 4-3/4 inches frame, her ideal body weight is 144 pounds. Highest weight was 364 pounds. Today she comes in weighing 279 pounds. She has gained 12 pounds in 3 months. Weight loss is 97 pounds, lifetime. Percent excess weight loss 38%. Body mass index is reduced from 61.2 down to 46.9. She is 135 pounds overweight. HEENT: No reports of dysphagia. History of hoarse voice secondary to radiation to the neck. SKIN: Severe panniculitis including of the abdomen, thighs and arms. ENDOCRINE: History of thyroid disorder also being managed by her brush clearer surveying. Diabetes type 2 is completely resolved. CARDIOVASCULAR: She is not on any medications related to blood pressure. No chest pain. RESPIRATORY: Obstructive sleep apnea now with recurrence. No pneumonia. MUSCULOSKELETAL: Otherwise, she has neuropathy of the hands as well as degenerative joint disease of the lower back, left knee and right foot. HEMATOLOGIC: No recent DVTs or pulmonary emboli. GASTROINTESTINAL: Gastroesophageal reflux disease resolved. No reports of blood in stools. No dumping syndrome. NEURO: No reports of stroke or seizure disorder. PSYCH: No reports of active depression or suicidal ideation. SKIN: History of skin ostosis including panniculitis. No skin cancer. PHYSICAL EXAM: VITAL SIGNS: 5 feet 4-3/4 inches frame, 279 pounds. Body mass index of 46.9. Vital Signs Temp 98.1 F 10/28/17 15:08 Pulse 78 10/28/17 15:08 Resp 15 10/28/17 15:08 BP 119/81 10/28/17 15:08 Pulse Ox ABDOMEN: Soft, nontender, nondistended. No palpable large incisional hernias. SKIN: Good skin turgor. Well perfused. GENERAL: Well-developed female in no acute distress. HEENT: No scleral icterus. Extraocular ocular movements intact. Moist buccal mucosa. She has hoarse voice. NECK: Supple without lymphadenopathy. Well-healed collar incision. CHEST: Nonlabored respirations with equal bilateral excursions. CARDIOVASCULAR: Regular rate and rhythm. MUSCULOSKELETAL: No clubbing, cyanosis, or edema. NEURO: No focal or lateralizing signs. PSYCH: Appropriate affect. Alert and oriented to person, place and time. ASSESSMENT: 1. Morbid obesity due to excess calories. 2. Body mass index reduced from 61.2 down to 46.9. 3. Status post Tunde-en-Y gastric bypass. 4. Secondary hyperparathyroidism. 5. History of dysphagia. 6. Gastroesophageal reflux disease. 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 9. Hoarseness 10. Thyroid disorder. PLAN: 1. Despite upper endoscopy including balloon and rigid dilators, she continues to have dysphagia. She'll follow up with her ENT provider. 2. Separately, she has underlying thyroid disorder. She'll follow up with brush clearer surveying. 3. She has gastric gastric fistula and anatomical abnormality with the gastric pouch. Revision with her gastrojejunal anastomosis was described. 4. Recommend inpatient hospitalization to 2 nights. 5. Recommend robotic-assisted approach. 6. DVT prophylaxis. 7. Antibiotic prophylaxis. 8. Recommend 2 week high protein low carbohydrate diet. Objective - Vital Signs Vital signs: Vital Signs Temp 98.1 F 10/28/17 15:08 Pulse 78 10/28/17 15:08 Resp 15 10/28/17 15:08 BP 119/81 10/28/17 15:08 Pulse Ox Intake & Output 10/27/17 10/28/17 10/28/17 18:59 06:59 18:59 Weight 126.961 kg
== END | disposition home or self-care (01) ==
LOC: BARWHC3 14:21
PROVIDERS: ATTEND Surgery Plastic and Reconstructive Surgery
DX: Z09 Encounter for follow-up examination after completed treatment for conditions other than malignant neoplasm (principal); E66.01 Morbid (severe) obesity due to excess calories; E03.8 Other specified hypothyroidism; G89.29 Other chronic pain; E78.5 Hyperlipidemia, unspecified; K31.6 Fistula of stomach and duodenum; E07.9 Disorder of thyroid, unspecified; R49.0 Dysphonia; K21.9 Gastro-esophageal reflux disease without esophagitis; M17.12 Unilateral primary osteoarthritis, left knee; E11.40 Type 2 diabetes mellitus with diabetic neuropathy, unspecified; E55.9 Vitamin D deficiency, unspecified; G47.33 Obstructive sleep apnea (adult) (pediatric); J38.00 Paralysis of vocal cords and larynx, unspecified; Z98.84 Bariatric surgery status; Z79.891 Long term (current) use of opiate analgesic; Z92.84 Personal history of unintended awareness under general anesthesia; Z79.899 Other long term (current) drug therapy; Z92.21 Personal history of antineoplastic chemotherapy; N25.81 Secondary hyperparathyroidism of renal origin; Z87.891 Personal history of nicotine dependence; Z68.42 Body mass index [BMI] 45.0-49.9, adult; Z85.850 Personal history of malignant neoplasm of thyroid; Z79.84 Long term (current) use of oral hypoglycemic drugs
CPT/HCPCS: 99211

== ENCOUNTER 2017-11-01 21:24 | Emergency (ER) | payer MEDICARE, OTHER ==
[2017-11-01 21:34] VITALS: RESP 18
[2017-11-01] MEDS ORDERED: SODIUM CHLORIDE 0.9% 1,000 ML IV STA (21:58)
[2017-11-01] MEDS ORDERED: ACETAMINOPHEN TAB 500 MG TAB PO STA (22:02)
[2017-11-01 22:22] LABS: Anisocytosis Slight; Basophils % (A) 1 %; Eosinophils # (A) 0.1 k/uL (0-0.7); Eosinophils % (A) 4 %; HCT 38.2 % (34.0-46.0); HGB 11.9 gm/dL (11.4-16.0); Lymphocytes # (A) 0.6 k/uL (1.0-4.8); Lymphocytes % (A) 15 %; MCH 26.9 pg (25.0-35.0); MCHC 31.1 g/dL (31.0-37.0); MCV 86.7 fL (80.0-100.0); Mean Platelet Volume 7.9; Monocytes # (A) 0.3 k/uL (0-1.0); Monocytes % (A) 6 %; Neutrophils # (A) 2.9 k/uL (1.3-7.7); Neutrophils % (A) 72 %; Platelet Count 229 k/uL (150-450); RDW 17.6 % (11.5-15.5)
--- NOTE | 2017-11-01 22:32 | XR ---
EXAMINATION TYPE: XR chest 2V DATE OF EXAM: 11/01/2017 COMPARISON: NONE HISTORY: Fever and cough TECHNIQUE: Frontal and lateral views of the chest are obtained. FINDINGS: Heart and mediastinum are normal. The right lung is clear. There is some mild infiltrate i n the left lower lobe. There is no pleural effusion. Bony thorax is intact. IMPRESSION: There is evidence of a mild left lower lobe pneumonia.
[2017-11-01 22:37] LABS: Albumin 3.4 g/dL (3.5-5.0); Calcium 8.7 mg/dL (8.4-10.2); Potassium 4.5 mmol/L (3.5-5.1); Total Bilirubin 0.4 mg/dL (0.2-1.3); Total Protein 6.1 g/dL (6.3-8.2)
[2017-11-01] MEDS ORDERED: cefTRIAXone IN SWFI 1,000 MG/10 ML SYRINGE IVP ONE (22:45)
--- NOTE | 2017-11-01 22:51 | ED ---
URI HPI - General Chief Complaint: Upper Respiratory Infection Stated Complaint: abdominal pain/congestion Time Seen by Provider: 11/01/17 21:43 Source: patient, RN notes reviewed Mode of arrival: wheelchair Limitations: no limitations - History of Present Illness Initial Comments: This is a 47-year-old female who presents to the emergency department with chief complaint of cough and congestion. Patient states that she has been coughing up a greenish/yellow phlegm for the past 2 days. She admits to fevers and chills. She states that she has had some nausea and diarrhea, but no episodes of vomiting. She states that she has been eating and drinking alright. She denies headache, sore throat or ear pain. She denies any urinary symptoms such as dysuria, increasing frequency or hematuria. Patient has been vaccine this season for influenza. She denies shortness of breath or chest pain. - Related Data Home Medications Medication Instructions Recorded Confirmed HYDROcodone/APAP 7.5-325MG [[place] 1 tab PO TID PRN 12/12/16 11/01/17 7.5-325] Levothyroxine Sodium [Synthroid] 175 mcg PO DAILY 12/12/16 11/01/17 Pregabalin [Lyrica] 150 mg PO TID 12/12/16 11/01/17 Multivitamins, Thera [Multivitamin 1 tab PO DAILY 02/16/17 11/01/17 (formulary)] Cyclobenzaprine [Flexeril] 10 mg PO TID PRN 09/09/17 11/01/17 valACYclovir [Valtrex] 500 mg PO DAILY 10/06/17 11/01/17 Dm/PE/Acetaminophen/Doxylamine 1 cap PO DAILY 11/01/17 11/01/17 [Jessica-[place] Plus Day-Night Cp] Previous Rx's Medication Instructions Recorded Ranitidine HCl [Zantac] 150 mg PO BID #180 tab 07/15/17 Azithromycin [Zithromax Z-pack] 0 mg PO DIRECTED #6 tab 11/01/17 Allergies Allergy/AdvReac Type Severity Reaction Status Date / Time shellfish derived AdvReac Unknown Nausea & Verified 11/01/17 22:12 Vomiting & Diarrhea Iodinated Contrast- Oral and AdvReac KIDNEY Verified 11/01/17 22:12 IV Dye DISEASE, [Iodinated Contrast Media - shell fish Oral and] allergy Review of Systems ROS Statement: Those systems with pertinent positive or pertinent negative responses have been documented in the HPI. ROS Other: All systems not noted in ROS Statement are negative. Past Medical History Past Medical History: Cancer, Diabetes Mellitus, GERD/Reflux, Osteoarthritis (OA ), Renal Disease, Sleep Apnea/CPAP/BIPAP, Thyroid Disorder Additional Past Medical History / Comment(s): throat cancer w/ radiation and chemo(2012), difficult intubation, degenerative disc disease ,stenosis , chronic back pain (surgery scheduled Nov 2017), Recieves steroid injections for back pain., neuropathy in hands, hx of sleep apnea (improved with wt loss)., diabetes improved with wt loss- no meds- watches diet., Type 3 kidney disease. History of Any Multi-Drug Resistant Organisms: None Reported Past Surgical History: Bariatric Surgery, Tubal Ligation Additional Past Surgical History / Comment(s): thyroidectomy, VIVIAN-EN -Y (2015 ). Past Anesthesia/Blood Transfusion Reactions: No Reported Reaction Additional Past Anesthesia/Blood Transfusion Reaction / Comment(s): Difficult intubation due to throat cancer with chemo & radiation tx. Past Psychological History: No Psychological Hx Reported Smoking Status: Former smoker Past Alcohol Use History: None Reported Past Drug Use History: None Reported - Past Family History Mother Family Medical History: Hyperlipidemia, Liver Disease Additional Family Medical History / Comment(s): HEPATITIS Father Additional Family Medical History / Comment(s): manic depressive, from suicide, ulcers-half of stomach removed General Exam - General Exam Comments Initial Comments: General: Awake and alert, well-developed; in no apparent distress. Mother is at bedside. HEENT: Head atraumatic, normocephalic. Pupils are equal, round and reactive to light. Extraocular movements intact. Oropharynx moist without erythema or exudate. Bilateral TMs pearly without effusion. Neck: Supple. Normal ROM. Cardiovascular: Regular rate and rhythm. No murmurs, rubs or gallops. Chest symmetrical. Respiratory: Normal respiratory effort with no use of accessory muscles. Diminished air movement bilaterally. No wheezes, rales or rhonchi. Abdomen: Soft, non-tender, non-distended. No rigidity, rebound or guarding. Normal bowel sounds in all 4 quadrants. Musculoskeletal: Normal ROM, no tenderness bilateral upper and lower extremities. Skin: [place], warm and dry without rashes or lesions. Neurological: Alert and oriented x3. CN II-XII grossly intact. Speech is fluent and answers are appropriate. No focal neuro deficits. Psychiatric: Normal mood and affect. No overt signs of depression or anxiety noted. Limitations: no limitations Course Vital Signs 11/01/17 21:31 Temperature 100.6 F H Pulse Rate 95 Respiratory 18 Rate Blood Pressure 111/74 O2 Sat by Pulse 94 L Oximetry Medical Decision Making - Medical Decision Making This is a 47-year-old female who presents to the emergency department for evaluation of cough and congestion. On presentation, patient had a slight fever at 100.6 and O2 sat of 94. Chest x-ray revealed a mild left lower lobe pneumonia. Patient given a dose of Rocephin in the emergency department. CBC was within normal limits. CMP revealed a creatinine of 1.40. On review of patient's past labs, she has a consistent elevation of creatinine. Patient will be discharged home with a prescription for azithromycin. She is to follow- up with her primary care provider within 1-2 days. Patient is in no acute distress at this time. She is in agreement with plan and voices understanding. All questions were answered. - Lab Data Result diagrams: 11/01/17 22:06 11/01/17 22:06 Lab Results 11/01/17 11/01/17 11/01/17 Range/Units 22:06 22:06 22:06 WBC 4.0 (3.8-10.6) k/uL RBC 4.40 (3.80-5.40) m/uL Hgb 11.9 (11.4-16.0) gm/dL Hct 38.2 (34.0-46.0) % MCV 86.7 (80.0-100.0) fL MCH 26.9 (25.0-35.0) pg MCHC 31.1 (31.0-37.0) g/dL RDW 17.6 H (11.5-15.5) % Plt Count 229 (150-450) k/uL Neutrophils % 72 % Lymphocytes % 15 % Monocytes % 6 % Eosinophils % 4 % Basophils % 1 % Neutrophils # 2.9 (1.3-7.7) k/uL Lymphocytes # 0.6 L (1.0-4.8) k/uL Monocytes # 0.3 (0-1.0) k/uL Eosinophils # 0.1 (0-0.7) k/uL Basophils # 0.0 (0-0.2) k/uL Anisocytosis Slight Sodium 141 (137-145) mmol/L Potassium 4.5 (3.5-5.1) mmol/L Chloride 107 (98-107) mmol/L Carbon Dioxide 26 (22-30) mmol/L Anion Gap 8 mmol/L BUN 16 (7-17) mg/dL Creatinine 1.40 H (0.52-1.04) mg/dL Est GFR (MDRD) Af Amer 49 (>60 ml/min/1.73 sqM) Est GFR (MDRD) Non-Af 40 (>60 ml/min/1.73 sqM) Glucose 85 (74-99) mg/dL Calcium 8.7 (8.4-10.2) mg/dL Total Bilirubin 0.4 (0.2-1.3) mg/dL AST 32 (14-36) U/L ALT 43 (9-52) U/L Alkaline Phosphatase 105 (38-126) U/L Total Protein 6.1 L (6.3-8.2) g/dL Albumin 3.4 L (3.5-5.0) g/dL Influenza Type A RNA Not Detected (Not Detectd) Influenza Type B (PCR) Not Detected (Not Detectd) - Radiology Data Radiology results: report reviewed Chest x-ray impression: There is evidence of mild left lower lobe pneumonia. Disposition Clinical Impression: Left lower lobe pneumonia Disposition: HOME SELF-CARE Condition: Good Instructions: Pneumonia (ED) Additional Instructions: Please take medications as prescribed. Please follow up with primary care provider within 1-2 days. Return to emergency department if symptoms should worsen or any concerns arise. Prescriptions: Azithromycin [Zithromax Z-pack] 0 mg PO DIRECTED #6 tab Referrals: Segun Hansen MD [Primary Care Provider] - 1-2 days Time of Disposition: 23:10
[2017-11-01 23:14] VITALS: BP 139/78; PULSE 73; TEMP 98.1
== END 2017-11-01 23:21 | disposition home or self-care (01) ==
LOC: EC 21:24
DX: J18.9 Pneumonia, unspecified organism (principal); R11.0 Nausea; R19.7 Diarrhea, unspecified; E07.9 Disorder of thyroid, unspecified; G47.30 Sleep apnea, unspecified; Z99.89 Dependence on other enabling machines and devices; Z85.89 Personal history of malignant neoplasm of other organs and systems; Z87.891 Personal history of nicotine dependence; Z79.899 Other long term (current) drug therapy; Z91.013 Allergy to seafood; Z91.041 Radiographic dye allergy status
CPT/HCPCS: 36415; 80053; 85025; 87502; 71046; 99283; 96374; 96361; J0696

== ENCOUNTER → 2017-11-24 | Outpatient (CLI) | payer MEDICARE, OTHER ==
--- NOTE | 2017-11-24 11:07 | FL ---
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 The patient developed hoarseness after radiation. History also includes gastric bypass. 2 recent EGD's w ithin the last 3 weeks with distal and proximal dilatation. History also includes thyroidectomy. Comp lains of hoarseness. COMPARISON: 11/23/2017 TECHNIQUE: A single contrast esophagram is performed utilizing thick barium. 38 seconds of fluorosc opy was utilized with 12 images saved. FINDINGS: Aspiration without cough reflux with barium extending to the level of the left mainstem bronchus is i dentified after ingestion of contrast and therefore the exam was terminated. In the limited portion o f the examination the esophagus shows normal motility and emptying into the stomach. No evidence of hiatal hernia or stricture noted. No significant gastroesophageal reflux was seen during real time pe rformance of this study. IMPRESSION: Alphonso aspiration with barium extending into the level of the left mainstem bronchus with out cough reflex upon ingestion. Therefore the exam was terminated. Limited images demonstrate no tom dence of stricture, hiatal hernia, or reflux.
== END | disposition home or self-care (01) ==
LOC: RADFLMAIN 08:12
PROVIDERS: ATTEND Otolaryngology
DX: R13.12 Dysphagia, oropharyngeal phase (principal)
CPT/HCPCS: 74210

== ENCOUNTER → 2018-01-09 | Outpatient (CLI) | payer MEDICARE ==
--- NOTE | 2018-01-11 11:01 | PE ---
Nuclear medicine PET/CT HISTORY: Head neck cancer, C 76.0 subsequent Patient received 13.7 mCi F-18 FDG intravenously in delayed scanning was performed from the skull bas e to the mid thighs. Small ptiwa-ha-lazb imaging obtained through the head and neck. Exam is correlated to prior CT abdomen pelvis 07/13/2017, CT soft tissue neck 02/15/2017, prior nuclear medicine PET/CT 12/28/2016, FINDINGS: Neck: No suspicious hypermetabolic uptake. Uptake in the oropharynx is thought to be physiologic. No evident adenopathy. CHEST: No evident lung nodule. There are prevascular nodes, retrocaval pretracheal nodes, subcarinal nodes and bilateral hilar nodes present. There is associated hypermetabolic uptake present. The distr ibution of uptake similar to previous exams. SUV values may not be accurate due to patient body habit us, intensity is similar to prior exam. Abdomen pelvis: Postop changes are noted to the stomach. No evident liver mass. No retroperitoneal ad enopathy. No suspicious hypermetabolic uptake. Uptake along the endometrium felt likely to be physiol ogic. Osseous structures: Uptake at the greater trochanter is likely due to trochanteric bursitis on the ri ght. Postop changes are noted to the lower lumbar spine status post posterior fusion the lumbosacral spine. Some local hypermetabolic uptake thought likely to be postprocedural. No suspicious hypermetab olic uptake. IMPRESSION: Uptake within the mediastinum is noted as on prior exam. Metastatic disease not excluded . No recurrent carcinoma in the head and neck.
== END | disposition home or self-care (01) ==
LOC: RADPETMAIN 10:22
PROVIDERS: ATTEND Internal Medicine Hematology & Oncology
DX: C76.0 Malignant neoplasm of head, face and neck (principal)
CPT/HCPCS: 78815; A9552

== ENCOUNTER → 2018-04-07 | Outpatient (CLI) | payer MEDICARE, OTHER ==
[2018-04-07 16:17] VITALS: BP 127/93; PULSE 74; RESP 16; TEMP 97.9; BMI 47.6
--- NOTE | 2018-04-07 16:53 | P.PN ---
Subjective Progress Note Date: 04/07/18 HPI: She had back surgery and vocal cord surgery. She is pending to see her thyroid specialist. She reports chronic epigastric and right lower quadrant pain. She is in rehab. She still has her gallbladder. PLAN: 1. Get CT of the abdomen and pelvis to evaluate appendix 2. Also recommend US of gallbladder 3. She is still pending for gastric fistula repair. 4. Will need adjustment of thyroid medication 5. Will need dietary classes Objective - Vital Signs Vital signs: Vital Signs Temp 97.9 F 04/07/18 16:14 Pulse 74 04/07/18 16:14 Resp 16 04/07/18 16:14 BP 127/93 04/07/18 16:14 Pulse Ox Intake & Output 04/06/18 04/07/18 04/07/18 18:59 06:59 18:59 Weight 128.82 kg
[2018-04-07 17:54] LABS: Partial Thromboplastin Time 23.8 sec (22.0-30.0)
[2018-04-07 18:02] LABS: Anisocytosis Slight; HCT 37.2 % (34.0-46.0); HGB 12.7 gm/dL (11.4-16.0); MCH 28.2 pg (25.0-35.0); MCHC 34.1 g/dL (31.0-37.0); MCV 82.6 fL (80.0-100.0); Mean Platelet Volume 7.2; Platelet Count 236 k/uL (150-450); RDW 16.7 % (11.5-15.5); WBC 4.7 k/uL (3.8-10.6)
[2018-04-07 18:06] LABS: Albumin 4.1 g/dL (3.5-5.0); Calcium 8.9 mg/dL (8.4-10.2); Magnesium 1.5 mg/dL (1.6-2.3); Phosphorus 3.9 mg/dL (2.5-4.5); Potassium 4.3 mmol/L (3.5-5.1); Total Bilirubin 0.4 mg/dL (0.2-1.3); Total Protein 6.8 g/dL (6.3-8.2)
[2018-04-08 00:59] LABS: Iron Saturation 13.19 (12.00-45.00)
[2018-04-08 01:10] LABS: Vitamin D 25 Hydroxy 19.6 ng/mL (30.0-100.0)
[2018-04-08 01:11] LABS: Parathyroid Hormone Intact 97.2 pg/mL (14.0-72.0)
[2018-04-08 01:44] LABS: Folate, Serum 23.3 ng/mL
[2018-04-08 02:19] LABS: Hemoglobin A1C 5.7 % (4.0-6.0)
[2018-04-08 13:08] LABS: Vitamin A 69 ug/dL (38-106)
[2018-04-08 14:52] LABS: Zinc, Serum 84 ug/dL (60-130)
[2018-04-09 05:25] LABS: Vitamin B1 73 ug/L (38-122)
[2018-04-10 12:08] LABS: Selenium 127 mcg/L (63-160)
== END | disposition home or self-care (01) ==
LOC: BARWHC3 15:49
PROVIDERS: ATTEND Surgery Plastic and Reconstructive Surgery
DX: E66.01 Morbid (severe) obesity due to excess calories (principal); E21.1 Secondary hyperparathyroidism, not elsewhere classified; E89.1 Postprocedural hypoinsulinemia; D50.9 Iron deficiency anemia, unspecified; E44.0 Moderate protein-calorie malnutrition; E55.9 Vitamin D deficiency, unspecified; K74.1 Hepatic sclerosis; N19 Unspecified kidney failure; K50.90 Crohn's disease, unspecified, without complications; R10.13 Epigastric pain; R10.31 Right lower quadrant pain; Z68.42 Body mass index [BMI] 45.0-49.9, adult
CPT/HCPCS: 84255; 84134; 84425; 80061; 80053; 82607; 82728; 82525; 82746; 83540; 83550; 83735; 84100; 84443; 84590; 84630; 85027; 85610; 85730; 82306; 83970; 83036; G0463; 99211

== ENCOUNTER → 2018-04-28 | Outpatient (CLI) | payer MEDICARE ==
--- NOTE | 2018-04-28 08:17 | US ---
EXAMINATION TYPE: US gallbladder DATE OF EXAM: 04/28/2018 COMPARISON: NONE CLINICAL HISTORY: 48-year-old female R10.84 Abd pain, R94.5 Abn liver function test. Elevated LFTs, e pigastric pain, h/o bariatric surgery and pending new surgery, large body habitus TECHNIQUE: Multiple sonographic images of the right upper quadrant are obtained. FINDINGS: TILE LAYER DRAINAGE NOTES: Body habitus and bowel gas limits exam EXAM MEASUREMENTS: Liver Length: 17.9 cm Gallbladder Wall: 0.2 cm CBD: 6.4 mm Right Kidney: 10.2 x 4.4 x 3.5 cm Pancreas: small portion of neck seen but unable to fully evaluate due to above-mentioned limitations Liver: Echogenic and difficult to penetrate Gallbladder: posterior wall small cluster of non shadowing stones measuring up to 6 mm, slighty mobi le when rolled LLD, no wall thickening or abnormal distention. Evidence for sonographic Villa's sign: no CBD: Borderline dilated Right Kidney: wnl IMPRESSION: 1. Technical limitations as above. 2. Borderline liver size (17.9 cm). There may be underlying fatty infiltration. 3. Cholelithiasis without evidence for acute cholecystitis. 4. The bile duct is upper limits of normal to borderline dilated. This may be normal for this patient . Correlate with alkaline phosphatase and bilirubin levels to exclude the possibility of early biliar y obstruction.
== END | disposition home or self-care (01) ==
LOC: RADUSWWP 06:46
PROVIDERS: ATTEND Surgery Plastic and Reconstructive Surgery
DX: K80.20 Calculus of gallbladder without cholecystitis without obstruction (principal); R93.2 Abnormal findings on diagnostic imaging of liver and biliary tract; R94.5 Abnormal results of liver function studies; Z88.2 Allergy status to sulfonamides; Z91.041 Radiographic dye allergy status
CPT/HCPCS: 76705

== ENCOUNTER → 2018-04-28 | Outpatient (CLI) | payer MEDICARE, OTHER ==
[2018-04-28 08:22] LABS: Albumin 3.7 g/dL (3.5-5.0); Bilirubin, Delta 0.2 mg/dL (0.0-0.2); Bilirubin,Unconjugated 0.1 mg/dL (0.0-1.1); Total Bilirubin 0.3 mg/dL (0.2-1.3); Total Protein 6.1 g/dL (6.3-8.2)
== END | disposition home or self-care (01) ==
LOC: LABWHC1 06:44
PROVIDERS: ATTEND Physician Assistant
DX: Z51.81 Encounter for therapeutic drug level monitoring (principal); Z79.891 Long term (current) use of opiate analgesic
CPT/HCPCS: 36415; 80076

== ENCOUNTER → 2018-05-05 | Outpatient (CLI) | payer MEDICARE ==
--- NOTE | 2018-05-05 11:08 | CT ---
EXAMINATION TYPE: CT abdomen pelvis wo con DATE OF EXAM: 05/05/2018 HISTORY: Right sided pain CT DLP: 2273.6 mGycm. Automated Exposure Control for Dose Reduction was Utilized. TECHNIQUE: CT scan of the abdomen and pelvis is performed with oral but without IV contrast. COMPARISON: CT abdomen and pelvis July 13, 2017. PET CT January 09, 2018. FINDINGS: Within the limitations of a non-contrast study, the following observations are made. LUNG BASES: Four millimeter nodule or nodular density axial image 1 central left lung this is unchang ed from prior CT there is patchy left basilar atelectasis redemonstrated. LIVER/GB: Small dependent density in gallbladder axial image 30 likely reflects small calculus unchan ged from prior. PANCREAS: Slightly unusual posterior course of the pancreas axial image 28 is unchanged from prior st udies. 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 ADRENALS: No significant abnormality is seen. KIDNEYS: No significant abnormality is seen. BOWEL: Oral contrast reaches level of proximal sigmoid colon. There is no suspicious small or large b owel dilatation. Somewhat redundant fecal filled sigmoid colon is present. Surgical changes epigastri c region from gastric bypass procedure are redemonstrated. Normal-appearing appendix is seen medially from cecum. GENITAL ORGANS: Uterus is anteverted in shape extending to right of midline similar to prior, somewha t prominent in size with superior anterior lobulated 5.6 cm mass axial image 77 that has indistinct m argins from adjacent uterus favoring subserosal fibroid. Right ovarian lesion on entirely excluded as normal right ovary is not clearly identified. This is enlarged in size from prior CT. Left ovary is felt normal in size near axial image 75. Scattered adjacent pelvic phleboliths are redemonstrated. LYMPH NODES: No greater than 1cm abdominal or pelvic lymph nodes are appreciated. OSSEOUS STRUCTURES: There is moderate to severe multilevel spurring and disc space narrowing througho ut the thoracolumbar spine. Multilevel vacuum disc phenomenon is present. There is evidence of prior surgery at lumbosacral junction with posterior interpedicular rods and screws that is new from prior CT but not from PET/CT. There is metallic disc material L5-S1 level. There is multilevel facet arthro rivas in the lumbar spine. OTHER: There is stable umbilical hernia containing fat and tiny calcification axial image 60. IMPRESSION: Continued enlarging right pelvic mass could reflect enlarging subserosal fibroid, cannot exclude enlarging right ovarian solid mass or neoplasm. Further investigation with pelvic ultrasound is advised to further evaluate and characterize.
== END | disposition home or self-care (01) ==
LOC: RADCTMAIN 07:57
PROVIDERS: ATTEND Surgery Plastic and Reconstructive Surgery
DX: R19.09 Other intra-abdominal and pelvic swelling, mass and lump (principal); R10.9 Unspecified abdominal pain
CPT/HCPCS: 74176

== ENCOUNTER → 2018-05-25 | Outpatient (CLI) | payer MEDICARE | END | disposition home or self-care (01) | LOC: LABWHC1 10:09 | PROVIDERS: ATTEND Internal Medicine Endocrinology, Diabetes & Metabolism | DX: E03.8 Other specified hypothyroidism (principal) | CPT/HCPCS: 36415; 84443 ==

== ENCOUNTER 2018-06-11 09:24 | Day surgery (SDC) | payer MEDICARE ==
[2018-06-07 14:29] VITALS: BMI 46.5
--- NOTE | 2018-06-11 08:23 | P.GSHP ---
History of Present Illness H&P Date: 06/11/18 CHIEF COMPLAINT: Cholecystitis HISTORY OF PRESENT ILLNESS: The patient is a 48-year-old female who presents with history of epigastric including right upper quadrant abdominal pain. She underwent diagnostic studies for her gallbladder. Separately her clinical picture was consistent with cholecystitis. Now she presents for surgical intervention. PAST MEDICAL HISTORY: Please see list PAST SURGICAL HISTORY: Please see list MEDICATIONS: Please see list ALLERGIES: Denies. SOCIAL HISTORY: No illicit drug use or recent tobacco use FAMILY HISTORY: Pertinent for morbid obesity REVIEW OF ORGAN SYSTEMS: CONSTITUTIONAL: No reports of fevers or chills. HEENT: Denies any troubles with the vision or hearing. ENDOCRINE: No reports of hypothyroidism. No diabetes. RESPIRATORY: No recent pneumonias. CARDIOVASCULAR: Denies chest pain or palpitations GI: No blood in stools or constipation. MUSCULOSKELETAL: Has occasional joint pain including back pain. NEURO: No seizure disorders or headaches. No recent stroke. PSYCH: No depression or suicidal ideation. HEMATOLOGIC: No personal or family history of DVTs or pulmonary emboli. PHYSICAL EXAM: VITAL SIGNS: Afebrile vital signs stable GENERAL: Well-developed pleasant in no acute distress. HEENT: No scleral icterus. Extraocular movements grossly intact. Moist buccal mucosa. NECK: Supple without lymphadenopathy. CHEST: Unlabored respirations. Equal bilateral excursions. CARDIOVASCULAR: Regular rate regular rhythm rhythm. Distal 2+ pulses. ABDOMEN: Soft, nondistended. Tender along the epigastrium and right upper quadrant. MUSCULOSKELETAL: No clubbing, cyanosis, or edema. NEURO: Cranial nerves II to XII within normal limits. No focal or lateralizing signs. PSYCH: Alert and oriented to person, place and time. ASSESSMENT: 1. Epigastric and right upper quadrant abdominal pain 2. Chronic cholecystitis 3. Symptomatic gallstones. PLAN: 1. Will need a robotic cholecystectomy possible open. Benefits and risks were described. 2. Heparin for DVT prophylaxis 5000 units. 3. Antibiotic prophylaxis. Past Medical History Past Medical History: Cancer, Diabetes Mellitus, GERD/Reflux, Osteoarthritis (OA ), Renal Disease, Sleep Apnea/CPAP/BIPAP, Thyroid Disorder Additional Past Medical History / Comment(s): throat cancer (UVULA) w/ radiation and chemo(2012), difficult intubation, degenerative disc disease , stenosis , chronic back pain Recieves steroid injections for back pain. neuropathy in hands, hx of sleep apnea (improved with wt loss)., diabetes improved with wt loss- no meds- watches diet., Type 3 kidney disease. History of Any Multi-Drug Resistant Organisms: None Reported Past Surgical History: Back Surgery, Bariatric Surgery, Tubal Ligation Additional Past Surgical History / Comment(s): thyroidectomy, VIVIAN-EN -Y (2016 ). Past Anesthesia/Blood Transfusion Reactions: No Reported Reaction Additional Past Anesthesia/Blood Transfusion Reaction / Comment(s): Difficult intubation due to throat cancer with chemo & radiation tx. Smoking Status: Former smoker - Past Family History Mother Family Medical History: Hyperlipidemia, Liver Disease Additional Family Medical History / Comment(s): HEPATITIS Father Additional Family Medical History / Comment(s): manic depressive, from suicide, ulcers-half of stomach removed Medications and Allergies Home Medications Medication Instructions Recorded Confirmed Type Levothyroxine Sodium [Synthroid] 175 mcg PO QAM 12/12/16 06/07/18 History Pregabalin [Lyrica] 150 mg PO TID 12/12/16 06/07/18 History Multivitamins, Thera [Multivitamin 1 tab PO DAILY 02/16/17 06/07/18 History (formulary)] Ranitidine HCl [Zantac] 150 mg PO BID #180 tab 07/15/17 06/07/18 Rx valACYclovir [Valtrex] 500 mg PO QAM 10/06/17 06/07/18 History HYDROcodone/APAP 5-325MG [[place] 1 tab PO Q6HR PRN 06/07/18 06/07/18 History 5-325] Nitrofurantoin Macrocrystal 100 mg PO BID 06/07/18 06/07/18 History [Macrodantin] Phenazopyridine HCl 95 mg PO TID 06/07/18 06/07/18 History tiaGABine HCL [Tiagabine HCl] 2 mg PO TID 06/07/18 06/07/18 History Allergies Allergy/AdvReac Type Severity Reaction Status Date / Time shellfish derived AdvReac Unknown Nausea & Verified 06/07/18 14:12 Vomiting & Diarrhea Iodinated Contrast- Oral and AdvReac KIDNEY Verified 06/07/18 14:12 IV Dye DISEASE, [Iodinated Contrast Media - shell fish Oral and] allergy
[~2018-06-11 09:24] MED LIST changes: +DEXAMETHASONE SOD PHOSPHATE 10 MG/ML 1 ML VIAL IV ONE; +HEPARIN SODIUM,PORCINE 5,000 UNIT/ML 1 ML VIAL SQ ONE; +MIDAZOLAM 2 MG/2 ML VIAL IV PRN; +ONDANSETRON 4 MG/2 ML VIAL IVP ONE
[2018-06-11 10:44] LABS: Glucose,Whole Blood 93 mg/dL (75-99)
[2018-06-11] MEDS ORDERED: GLYCOPYRROLATE 0.2 MG/ML 2 ML VIAL ONE (11:09)
[2018-06-11] MEDS ORDERED: SUCCINYLCHOLINE CHLORIDE 100 MG/5 ML SYR IV ONE (11:09)
[2018-06-11] MEDS ORDERED: PROPOFOL 10 MG/ML 20 ML VIAL IV ONE (11:09)
[2018-06-11] MEDS ORDERED: NEOSTIGMINE 1 MG/ML 10 ML VIAL ONE (11:09)
[2018-06-11] MEDS ORDERED: LIDOCAINE 1% INJ 10MG/ML (20 ML MDV) ONE (11:09)
[2018-06-11] MEDS ORDERED: MIDAZOLAM 2 MG/2 ML VIAL ONE (11:09)
[2018-06-11] MEDS ORDERED: ROCURONIUM BROMIDE 10 MG/ML 10 ML VIAL IV ONE (11:09)
[2018-06-11] MEDS ORDERED: fentaNYL (PF) 50 MCG/ML 2 ML AMP ONE (11:09)
[2018-06-11] MEDS ORDERED: ePHEDrine SULFATE/0.9% NACL/PF 50 MG/5 ML SYRINGE IV ONE (11:09)
[2018-06-11] MEDS: ceFAZolin IN SWFI 2 GM/20 ML SYRINGE IVP ONE ×2 (11:20→11:38)
[2018-06-11] MEDS ORDERED: BUPIVACAIN-EPI 0.5%-1:200,000 30 ML VIAL SQ ONE (11:32)
[2018-06-11] MEDS ORDERED: LACTATED RINGERS 1,000 ML IV ONE (12:26)
--- NOTE | 2018-06-11 12:33 | P.OP ---
Date of Procedure: 06/11/18 Description of Procedure: SURGEON: HILARY ALVAREZ MD PREOPERATIVE DIAGNOSES: 1. Right upper quadrant abdominal pain 2. Chronic cholecystitis 3. Depression 4. Asthma 5. Morbid obesity due to excess calories. 6. Body mass index reduced from 61.2 down to 47.6 7. Status post Tunde-en-Y gastric bypass. 8. Secondary hyperparathyroidism. 9. History of dysphagia. 10. Gastroesophageal reflux disease. 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 13. Thyroid disorder. 14. Difficult intubation POSTOPERATIVE DIAGNOSES: 1. Right upper quadrant abdominal pain 2. Acute on chronic cholecystitis 3. Depression 4. Asthma 5. Morbid obesity due to excess calories. 6. Body mass index reduced from 61.2 down to 47.6 7. Status post [place]-en-Y gastric bypass. 8. Secondary hyperparathyroidism. 9. History of dysphagia. 10. Gastroesophageal reflux disease. 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 13. Thyroid disorder. 14. Difficult intubation OPERATION: Robotic-assisted da Steh Xi laparoscopic cholecystectomy, multiport ESTIMATED BLOOD LOSS: 5 mL. SPECIMENS REMOVED: Gallbladder. COMPLICATIONS: None. OPERATIVE FINDINGS: 1. Chronic cholecystitis INDICATIONS: The patient is a 32-year-old female who presents with cholelcystitis. Surgical intervention with a laparoscopic cholecystectomy was described at length including injury to the biliary tree, bleeding, infection, need for further surgery. Informed consent was obtained. Robotic assisted laparoscopic approach was described. Benefits and risks of the procedure including but not limited to bleeding, infection, injury to the biliary tree was described. Informed consent was obtained. DESCRIPTION OF PROCEDURE: Patient was brought to the operating room, placed in supine position. After general induction, the abdomen had been prepped and draped in standard sterile fashion. The robotic da Seth XI system was primed. After a timeout protocol was performed, the patient had been prepped and draped in standard sterile fashion. A 5 mm 0 degrees laparoscopic trocar entry was performed along the left upper quadrant. The abdomen insufflated to 15 mmHg pressure which she tolerated well. Diagnostic laparoscopy demonstrated no injury to bowel viscera or mesentery. The liver surface was unremarkable. Next, two 8 mm robotic ports were placed along the right upper abdomen. The camera 8-mm port was maintained along the epigastrium. Another 8 mm port was placed along the left upper abdominal wall after exchanging the 5 mm port. Please note that the ports were placed at least 10 to 15 cm away from the target anatomy of the gallbladder. The robot was docked along the left lateral abdomen. The patient was repositioned in reverse Trendelenburg position. Using a grasper for arm 3, a grasper for arm 4, including hook cautery for arm 1 , the robotic system was docked and primed as described. Instruments were interchanged by the assistant gm of content & delivery including hook cautery, Bovie cautery and clip appliers. I had sat at the console. Adhesions were identified along the infundibulum of the gallbladder and addressed using hook cautery. The gallbladder fundus was retracted over the dome of the liver. Initial attention was brought to the infundibulum which was gently retracted in the inferior lateral approach. Using a grasper, the cystic duct including the cystic artery was carefully skeletonized. Large PLASTIC clips were used throughout the entire case. Using a clip cloth worker 2 clips were placed proximally, and 1 clip was placed distally along the cystic duct and then cauterized with the cautery. Again care was taken to avoid any injury to the biliary tree as the common bile duct was clearly visualized during this portion of dissection. Next, the cystic artery was similarly clipped and cauterized. Electro-Bovie cautery was used to remove the gallbladder from the hepatic fossa. Hemostasis was checked and found to be adequate. The robot was undocked. I re-scrubbed into the case. Using a 10 mm Endo Catch bag via the left upper quadrant incision, the specimen was removed from the abdominal cavity. All pneumoperitoneum instruments were evacuated from the abdominal cavity. The incisions were reapproximated using 4-0 Monocryl in an interrupted subcuticular fashion. Fascial defects were less than 8 mm in size. Please note along the trocar sites, local anesthetic was placed as a field block prior to insertion of all instruments. Liquid glue was applied to the skin. At the end of the procedure needle, sponge, and instrument count had been verified correct by the surgical garment fitter. The patient was transferred to postanesthesia care unit in stable condition. Intraoperative films were shared with the patient's family who were very pleased with the level of care. Console time 19 minutes Plan - Discharge Summary New Discharge Prescriptions: No Action Levothyroxine Sodium [Synthroid] 175 mcg PO QAM Pregabalin [Lyrica] 150 mg PO TID Multivitamins, Thera [Multivitamin (formulary)] 1 tab PO DAILY Ranitidine HCl [Zantac] 150 mg PO BID #180 tab valACYclovir [Valtrex] 500 mg PO QAM tiaGABine HCL [Tiagabine HCl] 2 mg PO TID Nitrofurantoin Macrocrystal [Macrodantin] 100 mg PO BID Phenazopyridine HCl 95 mg PO TID HYDROcodone/APAP 5-325MG [[place] 5-325] 1 tab PO Q6HR PRN PRN Reason: Pain Discharge Medication List Levothyroxine Sodium [Synthroid] 175 mcg PO QAM 12/12/16 [History] Pregabalin [Lyrica] 150 mg PO TID 12/12/16 [History] Multivitamins, Thera [Multivitamin (formulary)] 1 tab PO DAILY 02/16/17 [History ] Ranitidine HCl [Zantac] 150 mg PO BID #180 tab 07/15/17 [Rx] valACYclovir [Valtrex] 500 mg PO QAM 10/06/17 [History] HYDROcodone/APAP 5-325MG [[place] 5-325] 1 tab PO Q6HR PRN 06/07/18 [History] Nitrofurantoin Macrocrystal [Macrodantin] 100 mg PO BID 06/07/18 [History] Phenazopyridine HCl 95 mg PO TID 06/07/18 [History] tiaGABine HCL [Tiagabine HCl] 2 mg PO TID 06/07/18 [History]
[2018-06-11 12:46] VITALS: TEMP 97.4
[2018-06-11] MEDS: fentaNYL (PF) 50 MCG/ML 2 ML AMP IV PRN ×2 (12:51→13:05)
[2018-06-11] MEDS: HYDROmorphone 1 MG/ML 1 ML SYRINGE IVP ONE ×2 (13:17→13:24)
[2018-06-11 13:40] VITALS: RESP 16
[2018-06-11] MEDS ORDERED: HYDROcodone/APAP 7.5-325MG 1 EACH TAB PO ONE (14:25)
[2018-06-11 14:29] VITALS: BP 99/64; PULSE 54
== END 2018-06-11 14:59 | disposition home or self-care (01) ==
LOC: OR 09:24
PROVIDERS: ATTEND Surgery Plastic and Reconstructive Surgery
DX: K81.0 Acute cholecystitis (principal); K81.1 Chronic cholecystitis; K31.6 Fistula of stomach and duodenum; Z98.84 Bariatric surgery status; K21.9 Gastro-esophageal reflux disease without esophagitis; M19.90 Unspecified osteoarthritis, unspecified site; E07.9 Disorder of thyroid, unspecified; N18.3 Chronic kidney disease, stage 3 (moderate); G89.29 Other chronic pain; M54.9 Dorsalgia, unspecified; F32.9 Major depressive disorder, single episode, unspecified; J45.909 Unspecified asthma, uncomplicated; E66.01 Morbid (severe) obesity due to excess calories; Z68.44 Body mass index [BMI] 60.0-69.9, adult; Z79.890 Hormone replacement therapy; Z79.899 Other long term (current) drug therapy; Z91.041 Radiographic dye allergy status; Z91.013 Allergy to seafood
CPT/HCPCS: 81025; 88304; 47562; J2250; J1644; J1100; J2710; J2405; J2001; J3010; J1170; J0330; J2704; J0690

== ENCOUNTER 2018-06-16 22:50 | Emergency (ER) | payer MEDICARE ==
[2018-06-16 23:13] VITALS: TEMP 98.2
[2018-06-17] MEDS ORDERED: METOCLOPRAMIDE 5 MG/ML 2 ML VIAL IVP STA (00:35)
[2018-06-17] MEDS ORDERED: diphenhydrAMINE 50 MG/ML 1 ML VIAL IVP STA (00:35)
[2018-06-17] MEDS ORDERED: SODIUM CHLORIDE 0.9% 1,000 ML IV ONE (00:35)
--- NOTE | 2018-06-17 01:33 | ED ---
Headache HPI - General Chief Complaint: Headache Stated Complaint: Headache Time Seen by Provider: 06/16/18 23:48 Mode of arrival: wheelchair Limitations: no limitations - History of Present Illness Initial Comments: This patient's a 48-year-old woman who presents to be evaluated for left-sided headache. Has been going on for 2 days now. She states that he had come on after she had surgery for gallbladder. Patient denies associated fever or chills. No neurologic symptoms including weakness, numbness, change in vision, hearing or speech. She did have a little bit of congestion prior but states she is not have other thing suggesting sinus at the moment. MD Complaint: headache Onset/Timin -: days(s) Location: left Severity: moderate Quality: aching Consistency: constant Improves With: nothing Worsens With: none Context: occurred at rest Treatments Prior to Arrival: none - Related Data Home Medications Medication Instructions Recorded Confirmed Levothyroxine Sodium [Synthroid] 175 mcg PO QAM 12/12/16 06/11/18 Pregabalin [Lyrica] 150 mg PO TID 12/12/16 06/11/18 Multivitamins, Thera [Multivitamin 1 tab PO DAILY 02/16/17 06/11/18 (formulary)] valACYclovir [Valtrex] 500 mg PO QAM 10/06/17 06/11/18 HYDROcodone/APAP 5-325MG [[place] 1 tab PO Q6HR PRN 06/07/18 06/11/18 5-325] Nitrofurantoin Macrocrystal 100 mg PO BID 06/07/18 06/11/18 [Macrodantin] Phenazopyridine HCl 95 mg PO TID 06/07/18 06/11/18 tiaGABine HCL [Tiagabine HCl] 2 mg PO TID 06/07/18 06/11/18 Previous Rx's Medication Instructions Recorded Ranitidine HCl [Zantac] 150 mg PO BID #180 tab 07/15/17 Allergies Allergy/AdvReac Type Severity Reaction Status Date / Time shellfish derived AdvReac Unknown Nausea & Verified 06/16/18 23:13 Vomiting & Diarrhea Iodinated Contrast- Oral and AdvReac KIDNEY Verified 06/16/18 23:13 IV Dye DISEASE, [Iodinated Contrast Media - shell fish Oral and] allergy Review of Systems ROS Statement: Those systems with pertinent positive or pertinent negative responses have been documented in the HPI. ROS Other: All systems not noted in ROS Statement are negative. Constitutional: Denies: fever, chills Eyes: Denies: eye pain, vision change ENT: Reports: congestion. Denies: ear pain, throat pain, hearing loss, epistaxis Respiratory: Denies: cough, dyspnea Cardiovascular: Denies: chest pain, syncope Gastrointestinal: Denies: nausea, vomiting Neurological: Reports: headache. Denies: weakness, numbness, paresthesias, confusion Past Medical History Past Medical History: Cancer Additional Past Medical History / Comment(s): throat cancer (UVULA) w/ radiation and chemo(2012), difficult intubation, degenerative disc disease , stenosis , chronic back pain (surgery scheduled Nov 2017), Recieves steroid injections for back pain., neuropathy in hands, hx of sleep apnea (improved with wt loss)., diabetes improved with wt loss- no meds- watches diet., Type 3 kidney disease. History of Any Multi-Drug Resistant Organisms: None Reported Past Surgical History: Bariatric Surgery, Cholecystectomy, Tubal Ligation Additional Past Surgical History / Comment(s): thyroidectomy, VIVIAN-EN -Y (2015 ). Past Anesthesia/Blood Transfusion Reactions: No Reported Reaction Additional Past Anesthesia/Blood Transfusion Reaction / Comment(s): Difficult intubation due to throat cancer with chemo & radiation tx. Past Psychological History: No Psychological Hx Reported Smoking Status: Former smoker Past Alcohol Use History: None Reported Past Drug Use History: None Reported - Past Family History Mother Family Medical History: Hyperlipidemia, Liver Disease Additional Family Medical History / Comment(s): HEPATITIS Father Additional Family Medical History / Comment(s): manic depressive, from suicide, ulcers-half of stomach removed General Exam Limitations: no limitations General appearance: alert, in no apparent distress, obese Head exam: Present: atraumatic, normocephalic Eye exam: Present: normal appearance. Absent: scleral icterus, conjunctival injection ENT exam: Present: normal oropharynx, mucous membranes dry Neck exam: Present: normal inspection, full ROM. Absent: tenderness, meningismus Respiratory exam: Present: normal lung sounds bilaterally. Absent: respiratory distress, wheezes, rales, rhonchi, stridor Cardiovascular Exam: Present: regular rate, normal rhythm, normal heart sounds. Absent: systolic murmur, diastolic murmur, rubs, gallop Neurological exam: Present: alert, oriented X3, CN II-XII intact. Absent: motor sensory deficit Skin exam: Present: warm, dry, intact, normal color. Absent: rash Course Vital Signs 06/16/18 06/17/18 23:10 00:25 Temperature 98.2 F Pulse Rate 81 63 Respiratory 20 16 Rate Blood Pressure 130/71 106/58 O2 Sat by Pulse 96 97 Oximetry Disposition Clinical Impression: Headache Disposition: HOME SELF-CARE Condition: Good Instructions: Acute Headache (ED) Is patient prescribed a controlled substance at d/c from ED?: No Referrals: Segun Hansen MD [Primary Care Provider] - 1-2 days
--- NOTE | 2018-06-17 02:09 | CT ---
EXAMINATION TYPE: CT brain wo con DATE OF EXAM: 06/17/2018 COMPARISON: None HISTORY: headache CT DLP: 1121 mGycm. Automated Exposure Control for Dose Reduction was Utilized. TECHNIQUE: CT scan of the head is performed without contrast. FINDINGS: Ventricles have normal size. There is no mass effect nor midline shift. There is no sign of intracranial hemorrhage. The calvarium appears normal. IMPRESSION: Negative CT scan of the brain.
[2018-06-17] MEDS ORDERED: KETOROLAC 30 MG/ML 1 ML VIAL IVP STA (02:45)
[2018-06-17] MEDS ORDERED: MORPHINE SULFATE 4 MG/ML SYRINGE IV STA (02:45)
[2018-06-17 07:30] VITALS: BP 110/65; PULSE 68; RESP 18
== END 2018-06-17 04:00 | disposition home or self-care (01) ==
LOC: EC 22:50
DX: R51 Headache (principal); R09.89 Other specified symptoms and signs involving the circulatory and respiratory systems; G89.29 Other chronic pain; Z87.891 Personal history of nicotine dependence; Z79.52 Long term (current) use of systemic steroids; Z79.899 Other long term (current) drug therapy; Z91.013 Allergy to seafood; Z91.041 Radiographic dye allergy status; Z85.818 Personal history of malignant neoplasm of other sites of lip, oral cavity, and pharynx; Z92.21 Personal history of antineoplastic chemotherapy; Z92.3 Personal history of irradiation
CPT/HCPCS: 70450; 99284; 96374; 96375 ×3; 96361; J2270; J1200; J2765; J1885

== ENCOUNTER 2018-06-18 13:19 | Emergency (ER) | payer MEDICARE, OTHER ==
[2018-06-18 13:52] VITALS: BP 112/72; PULSE 66; RESP 18; TEMP 97.7
[2018-06-18] MEDS ORDERED: MORPHINE SULFATE 4 MG/ML SYRINGE IM STA (14:28)
--- NOTE | 2018-06-18 15:09 | ED ---
General Adult HPI - General Chief complaint: Recheck/Abnormal Lab/Rx Stated complaint: Face Pain Time Seen by Provider: 06/18/18 14:08 Source: patient, RN notes reviewed Mode of arrival: ambulatory Limitations: no limitations - History of Present Illness Initial comments: 48-year-old female presents to the emergency department for a chief complaint of facial pain times one week. Patient had a cholecystectomy 1 week ago and was warned that she is a very difficult intubation to the point where they were not sure if they could do the surgery. She states that since the intubation she has had pain on her face of the left side and left jaw. Patient states she had bruising to the hard and soft palate of her mouth. Patient states moving the jaw makes the pain worse. Patient states she is able to move the jaw without difficulty. Patient has been taking [place] 7.5 which is not helping with the pain. Patient denies any headache. Patient denies any visual changes. Patient denies any difficulty eating foods or swallowing liquids. Patient does have a history of throat cancer that was treated with radiation.Patient has no other complaints at this time including shortness of breath, chest pain, abdominal pain, nausea or vomiting, headache, or visual changes. - Related Data Home Medications Medication Instructions Recorded Confirmed Levothyroxine Sodium [Synthroid] 175 mcg PO QAM 12/12/16 06/11/18 Pregabalin [Lyrica] 150 mg PO TID 12/12/16 06/11/18 Multivitamins, Thera [Multivitamin 1 tab PO DAILY 02/16/17 06/11/18 (formulary)] valACYclovir [Valtrex] 500 mg PO QAM 10/06/17 06/11/18 HYDROcodone/APAP 5-325MG [[place] 1 tab PO Q6HR PRN 06/07/18 06/11/18 5-325] Nitrofurantoin Macrocrystal 100 mg PO BID 06/07/18 06/11/18 [Macrodantin] Phenazopyridine HCl 95 mg PO TID 06/07/18 06/11/18 tiaGABine HCL [Tiagabine HCl] 2 mg PO TID 06/07/18 06/11/18 Previous Rx's Medication Instructions Recorded Ranitidine HCl [Zantac] 150 mg PO BID #180 tab 07/15/17 Allergies Allergy/AdvReac Type Severity Reaction Status Date / Time shellfish derived AdvReac Unknown Nausea & Verified 06/16/18 23:13 Vomiting & Diarrhea Iodinated Contrast- Oral and AdvReac KIDNEY Verified 06/16/18 23:13 IV Dye DISEASE, [Iodinated Contrast Media - shell fish Oral and] allergy Review of Systems ROS Statement: Those systems with pertinent positive or pertinent negative responses have been documented in the HPI. ROS Other: All systems not noted in ROS Statement are negative. Past Medical History Past Medical History: Cancer, Renal Disease Additional Past Medical History / Comment(s): throat cancer (UVULA) w/ radiation and chemo(2012), difficult intubation, degenerative disc disease , stenosis , chronic back pain (surgery scheduled Nov 2017), Recieves steroid injections for back pain., neuropathy in hands, hx of sleep apnea (improved with wt loss)., diabetes improved with wt loss- no meds- watches diet., Type 3 kidney disease. History of Any Multi-Drug Resistant Organisms: None Reported Past Surgical History: Bariatric Surgery, Cholecystectomy, Tubal Ligation Additional Past Surgical History / Comment(s): thyroidectomy, VIVIAN-EN -Y (2015 ). Past Anesthesia/Blood Transfusion Reactions: No Reported Reaction Additional Past Anesthesia/Blood Transfusion Reaction / Comment(s): Difficult intubation due to throat cancer with chemo & radiation tx. Past Psychological History: No Psychological Hx Reported Smoking Status: Former smoker Past Alcohol Use History: None Reported Past Drug Use History: None Reported - Past Family History Mother Family Medical History: Hyperlipidemia, Liver Disease Additional Family Medical History / Comment(s): HEPATITIS Father Additional Family Medical History / Comment(s): manic depressive, from suicide, ulcers-half of stomach removed General Exam Limitations: no limitations General appearance: alert, in no apparent distress Head exam: Present: atraumatic, normocephalic, normal inspection Eye exam: Present: normal appearance, PERRL, EOMI. Absent: scleral icterus, conjunctival injection, periorbital swelling ENT exam: Present: TM's normal bilaterally, normal external ear exam, other ( Patient has tenderness to the left maxilla as well as TMJ and left mandible.). Absent: normal oropharynx (All teeth intact. There is mild ecchymosis noted to the soft palate which patient states has greatly improved) Neck exam: Present: normal inspection, full ROM. Absent: tenderness, meningismus, lymphadenopathy Respiratory exam: Present: normal lung sounds bilaterally. Absent: respiratory distress, wheezes, rales, rhonchi, stridor Cardiovascular Exam: Present: regular rate, normal rhythm, normal heart sounds. Absent: bradycardia, tachycardia, irregular rhythm Neurological exam: Present: alert, oriented X3, CN II-XII intact Psychiatric exam: Present: normal affect, normal mood Course Vital Signs 06/18/18 13:47 Temperature 97.7 F Pulse Rate 66 Respiratory 18 Rate Blood Pressure 112/72 O2 Sat by Pulse 96 Oximetry Medical Decision Making - Medical Decision Making 48-year-old female presents to the emergency department for left-sided facial and jaw pain times one week. Patient states this happened after she was intubated and was told she was a difficult intubation. Patient did have bruising of the palate which she states has improved significantly. Patient has full range of motion of the jaw. She has had mild tenderness in the TMJ as well as the maxilla. Facial CT shows a negative exam. No cause for left-sided facial pain. Maxilla is intact. Patient likely has a contusion and it will take time to heal. She can continue [place] for pain. She is to follow-up with primary care in 1-2 days. She is to return to the emergency Department if she has any worsening symptoms or fevers Disposition Clinical Impression: Facial pain Disposition: HOME SELF-CARE Condition: Good Instructions: Atypical Facial Pain (ED) Additional Instructions: Please continue to take [place] for pain at home. Apply ice to the area. Follow- up with primary care in 1-2 days. Return if you have any worsening symptoms or fevers. Is patient prescribed a controlled substance at d/c from ED?: No Referrals: Segun Hansen MD [Primary Care Provider] - 1-2 days Time of Disposition: 17:05
--- NOTE | 2018-06-18 16:43 | CT ---
EXAMINATION TYPE: CT facial bones wo con DATE OF EXAM: 06/18/2018 COMPARISON: None HISTORY: Left side facial pain, no known injury CT DLP: 649 mGycm Automated exposure control for dose reduction was used. TECHNIQUE: CT scan of the sinuses is performed without contrast, axial images are obtained, coronal r eformatted images are also reviewed. FINDINGS: The orbital margins are intact. There is bilateral patency of the ostiomeatal complex. Ther e is no evidence of a blowout fracture. Maxilla is intact. Zygomatic arches appear normal. There is n o evidence of orbital mass. Nasal bone appears intact. There is normal aeration of the paranasal sinu ses. There is mild sclerosis in the right mastoid sinus. IMPRESSION: Incomplete pneumatization of the right mastoid sinus. Otherwise negative exam. I do not s ee a cause for left side facial pain.
[2018-06-18] MEDS ORDERED: KETOROLAC 30 MG/ML 1 ML VIAL IM STA (17:04)
== END 2018-06-18 17:14 | disposition home or self-care (01) ==
LOC: EC 13:19
DX: R51 Headache (principal); G47.30 Sleep apnea, unspecified; Z87.891 Personal history of nicotine dependence; Z85.818 Personal history of malignant neoplasm of other sites of lip, oral cavity, and pharynx; Z92.21 Personal history of antineoplastic chemotherapy; Z79.899 Other long term (current) drug therapy; Z91.013 Allergy to seafood; Z91.041 Radiographic dye allergy status; Z90.49 Acquired absence of other specified parts of digestive tract
CPT/HCPCS: 99284; 96372 ×2; 70486; J2270; J1885

== ENCOUNTER → 2018-07-28 | Outpatient (CLI) | payer MEDICARE, OTHER ==
[2018-07-28 15:29] VITALS: BP 118/81; PULSE 81; RESP 16; TEMP 98.1; BMI 48.6
--- NOTE | 2018-07-28 15:51 | P.PN ---
Subjective Progress Note Date: 07/28/18 HPI: Needs revision of gastric bypass for pouch. She reports abdominal pain along the epigastrium. ABDOMEN: Well healed. PLAN: 1. She needs revision of her gastric bypass. 2. She will need evaluation with anesthesia Objective - Vital Signs Vital signs: Vital Signs Temp 98.1 F 07/28/18 15:26 Pulse 81 07/28/18 15:26 Resp 16 07/28/18 15:26 BP 118/81 07/28/18 15:26 Pulse Ox Intake & Output 07/27/18 07/28/18 07/28/18 18:59 06:59 18:59 Weight 131.542 kg
== END ==
LOC: BARWHC3 14:35
PROVIDERS: ATTEND Surgery Plastic and Reconstructive Surgery
DX: R10.13 Epigastric pain (principal)
CPT/HCPCS: 99211

== ENCOUNTER → 2018-11-13 | Outpatient (CLI) | payer MEDICARE, OTHER ==
--- NOTE | 2018-11-15 08:09 | PE ---
EXAMINATION TYPE: PET CT fusion skull to thigh DATE OF EXAM: 11/14/2018 CLINICAL HISTORY: 48-year-old female restaging head and neck cancer TECHNIQUE: Following the intravenous administration of 13.7 mCi of F-18 FDG, initial cone-down imag es of the head and neck were obtained followed by whole body images are performed from the skull base to the midthigh. Images are reviewed on the computer in the coronal, axial, and sagittal planes. R econstructed rotating images are created on independent workstation and reviewed on the computer. A localization and attenuation correction CT is performed in conjunction with the PET scan. Glucose level: 102 mg/dL CTDI: 2.83 + 6.43 mGy DLP: 85.26 + 571.79 mGy/cm COMPARISON: 01/09/2018. 01/03/2017 FINDINGS: PET: Physiologic FDG uptake within the neck. There is persistent paratracheal, precarinal, subcarinal, AP window, and bilateral hilar lymphadenopa thy redemonstrated measuring up to 1.7 cm. These remain unchanged and show intense uptake, max SUV 7. 5. On 01/03/2017, max SUV was 5.3. Heterogeneous liver uptake likely normal variation. Liver average SUV 3.1. Focal intense uptake involving some clustered lower mid abdominal small bowel loops likely physiologi c. Redemonstrated large right ovarian mass measuring 6.8 cm versus approximately 7.0 cm, previously, not significantly changed. No significant FDG uptake. There is intense uptake measuring approximately 4.7 cm in the region of the cervix, new from prior of uncertain etiology. Physical exam, pelvic ultrasound, and Pap smear is recommended to further evalua te. Max SUV 7.6. Variable moderate uptake is present along the patient's lumbosacral fusion hardware probably degenera tive combination of degenerative uptake and attenuation artifact. No appreciable change identified on CT in this region. ATTENUATION CORRECTION CT: Visualized intracranial structures show no midline shift. There is excessive noise artifact for adequ ate assessment of the brain. No hydrocephalus. Visualized paranasal sinuses and mastoid air cells are well pneumatized. No cervical lymphadenopathy . Heart upper limits of normal in size without pericardial effusion. Aorta normal caliber with conventi onal branching anatomy. Persistent mediastinal lymphadenopathy and bilateral hilar lymphadenopathy. V nils large patient body habitus and breathing motion artifacts limit assessment of the lungs. No krystina consolidation or pleural effusion. Prominent artifacts from patient's large body habitus limits assessment. No dilated small bowel, mane e fluid, or free air. Postsurgical changes along the stomach. Mild to moderate scattered stool. Multiple pelvic phleboliths. No abnormal fluid collection pelvis or pelvic lymphadenopathy. Bones: Degenerative changes at the hips. Lumbosacral fusion hardware. Endplate spondylosis throughout the thoracic spine. IMPRESSION: 1. Persistent mediastinal and bilateral hilar lymphadenopathy showing moderate to intense uptake shaun uring up to 1.7 cm. Chronic inflammatory process such as sarcoidosis is in the differential in additi on to metastatic disease. While SUV value is slightly increased as compared to 01/03/2017 (7.5 now zack kwadwo 5.3, previously in 2017) inflammatory etiology is favored given overall stability in size. Clinic ally correlate. 2. New focal uptake in the region of the cervix measuring up to 4.7 cm of uncertain etiology. Recomme nd correlation with pelvic ultrasound, physical exam, and Pap smear to exclude underlying neoplasm. 3. Right ovarian mass is unchanged at 6.8 cm and shows no significant FDG uptake. A benign cystic ova anoop neoplasm remains in the differential. This can also be further characterized on the patient's pe lvic ultrasound. 4. Exam limitations due to very large patient body habitus. No suspicious uptake within the head or n bhavani.
== END ==
LOC: RADPETMAIN 07:42
PROVIDERS: ATTEND Internal Medicine Hematology & Oncology
DX: R59.0 Localized enlarged lymph nodes (principal); R93.49 Abnormal radiologic findings on diagnostic imaging of other urinary organs; N83.8 Other noninflammatory disorders of ovary, fallopian tube and broad ligament; C76.0 Malignant neoplasm of head, face and neck
CPT/HCPCS: 78815; A9552

== ENCOUNTER → 2018-11-25 | Outpatient (CLI) | payer MEDICARE, OTHER | END | disposition home or self-care (01) | LOC: LABWHC1 09:03 | PROVIDERS: ATTEND Internal Medicine Endocrinology, Diabetes & Metabolism | DX: E03.8 Other specified hypothyroidism (principal) | CPT/HCPCS: 36415; 84443 ==

== ENCOUNTER → 2018-12-27 | Outpatient (CLI) | payer MEDICARE, OTHER | END | disposition home or self-care (01) | LOC: LABWHC1 11:14 | PROVIDERS: ATTEND Internal Medicine Critical Care Medicine | DX: D86.9 Sarcoidosis, unspecified (principal) | CPT/HCPCS: 36415; 82164 ==

== ENCOUNTER 2019-01-05 09:41 | Day surgery (SDC) | payer MEDICARE, OTHER ==
[2018-12-31 18:09] VITALS: BMI 47.4
[~2019-01-05 09:41] MED LIST changes: +ALBUTEROL NEB (CONC) 2.5 MG/0.5 ML INHALATION ONE; -DEXAMETHASONE SOD PHOSPHATE 10 MG/ML 1 ML VIAL IV ONE; -HEPARIN SODIUM,PORCINE 5,000 UNIT/ML 1 ML VIAL SQ ONE; +LIDOCAINE 2% (PF) 20 MG/ML 5 ML VIAL INHALATION ONE; +LIDOCAINE VISCOUS 300 MG/15 ML CUP MUCOUS MEM ONE; -MIDAZOLAM 2 MG/2 ML VIAL IV PRN; -ONDANSETRON 4 MG/2 ML VIAL IVP ONE; +SODIUM CHLORIDE 0.9% 1,000 ML IV SCH
[2019-01-05 10:43] LABS: Glucose,Whole Blood 96 mg/dL (75-99)
[2019-01-05] MEDS ORDERED: ONDANSETRON 4 MG/2 ML VIAL IVP ONE (10:43)
[2019-01-05] MEDS ORDERED: LIDOCAINE 2% (PF) 20 MG/ML 10 ML AMP INHALATION ONE (10:45)
[2019-01-05 10:47] VITALS: RESP 18; TEMP 97.1
[2019-01-05] MEDS ORDERED: MIDAZOLAM 2 MG/2 ML VIAL ONE (11:17)
[2019-01-05] MEDS ORDERED: GLYCOPYRROLATE 0.2 MG/ML 2 ML VIAL ONE (11:17)
[2019-01-05] MEDS ORDERED: KETAMINE 10 MG/ML 20 ML VIAL ONE (11:17)
[2019-01-05] MEDS ORDERED: PROPOFOL 10 MG/ML 20 ML VIAL IV ONE (11:17)
[2019-01-05] MEDS ORDERED: fentaNYL (PF) 50 MCG/ML 2 ML AMP ONE (11:17)
[2019-01-05] MEDS ORDERED: LIDOCAINE 2% INJ 20 MG/ML INTRATRACH ONE (11:44)
[2019-01-05 12:18] VITALS: BP 101/69; PULSE 76
--- NOTE | 2019-01-05 12:19 | XR ---
EXAMINATION TYPE: XR chest 1V portable DATE OF EXAM: 01/05/2019 COMPARISON: 11/01/2017 HISTORY: Post right lung biopsies TECHNIQUE: Single frontal view of the chest is obtained. FINDINGS: Bilateral hilar adenopathy noted. Nodular density left midlung zone. No evidence for pneumothorax sta tus post right lung biopsies. The cardiac silhouette size is within normal limits. The osseous structures are intact. IMPRESSION: 1. No evidence for pneumothorax.
--- NOTE | 2019-01-05 15:53 | FL ---
EXAMINATION TYPE: FL bronchoscopy DATE OF EXAM: 01/05/2019 CLINICAL HISTORY: Abnormal adenopathy. TECHNIQUE: Fluoroscopy. COMPARISON: None. FINDINGS: Fluoroscopic guidance was provided during bronchoscopy procedure performed by Dr. Rondon . A total of 22 seconds of fluoroscopic time was utilized during the procedure and single spot fluor oscopic image is acquired. Single image acquired shows partial visualization of left suprahilar regio n of lung with overlying EKG leads. Bronchoscope not well visualized. IMPRESSION: As Above.
--- NOTE | 2019-01-06 19:07 | PCN ---
PROCEDURE NOTE PREOP DIAGNOSES: 1. Mediastinal lymphadenopathy. 2. Rule out lymphoma. 3. Rule out sarcoidosis. POSTOP DIAGNOSES: 1. Mediastinal lymphadenopathy. 2. Rule out lymphoma. 3. Rule out sarcoidosis. PROCEDURE PERFORMED: Flexible bronchoscopy, transbronchial needle aspirate of a paratracheal lymph node, transbronchial biopsy of the right upper lobe and right lower lobe. DESCRIPTION OF PROCEDURE: This procedure was done under conscious sedation. Anesthetic agent was administered by anesthesia at bedside. The patient was brought into the bronchoscopy suite. Consent and a time-out was obtained. After achieving adequate sedation, the flexible bronchoscope was inserted through the right nostril and was advanced to the upper airway. Examination of the posterior pharynx, larynx, epiglottis and vocal cords was done and all of his upper airway structures within normal limits. No significant abnormalities were identified. The vocal cords were in the midline and symmetrical and there was no vocal cord lesion identified. At this point, a total of 2 mL of 1% lidocaine was applied to the vocal cords. Following that, the bronchoscope was advanced into the upper trachea and examination of the tracheobronchial tree was done. The visualized airways included the trachea, bilateral mainstem bronchi, right upper lobe bronchus, right middle lobe bronchus, bronchus intermedius, right lower lobe bronchus, left upper lobe bronchus, left lower lobe bronchus along with various segments and subsegments. All of these airways were patent and within normal limits. At this point, the bronchoscope was moved to the distal trachea and using a 21-gauge histology needle, transbronchial needle aspirate of a paratracheal lymph node was done. A total of 4 passes was taken. Following that, under fluoroscopic guidance, transbronchial biopsies of the right lower lobe lateral and anterior segment was done. Similarly, transbronchial biopsies of the right upper lobe anterior segment was done. Transbronchial biopsies were done under fluoroscopic guidance. No bedside complications or bleeding. The bronchoscope was removed. The patient was transferred to recovery in stable condition. Chest x-ray was done, and there is no evidence of pneumothorax. The patient will see me back in the office in a few weeks time to discuss the results. MMODL / IJN: [id number] /
== END 2019-01-05 12:46 | disposition home or self-care (01) ==
LOC: ORWHC2ENDO 09:41
PROVIDERS: ATTEND Internal Medicine Critical Care Medicine
DX: J98.4 Other disorders of lung (principal); I89.8 Other specified noninfective disorders of lymphatic vessels and lymph nodes; N28.9 Disorder of kidney and ureter, unspecified; E07.9 Disorder of thyroid, unspecified; E11.42 Type 2 diabetes mellitus with diabetic polyneuropathy; J44.9 Chronic obstructive pulmonary disease, unspecified; C32.9 Malignant neoplasm of larynx, unspecified; E66.01 Morbid (severe) obesity due to excess calories; Z68.42 Body mass index [BMI] 45.0-49.9, adult; G47.33 Obstructive sleep apnea (adult) (pediatric); Z87.891 Personal history of nicotine dependence; E03.9 Hypothyroidism, unspecified; Z79.890 Hormone replacement therapy; Z79.891 Long term (current) use of opiate analgesic; Z79.899 Other long term (current) drug therapy; Z91.041 Radiographic dye allergy status; Z91.013 Allergy to seafood
CPT/HCPCS: 94640; 81025; 88305; 88312; 71045; 31628; 31629; 31632; J2001 ×2; J2250; J2405; J3010; J2704; 31625

== ENCOUNTER → 2019-01-14 | Outpatient (CLI) | payer MEDICARE, OTHER | END | disposition home or self-care (01) | LOC: LABWHC1 09:09 | PROVIDERS: ATTEND Internal Medicine Endocrinology, Diabetes & Metabolism | DX: E03.8 Other specified hypothyroidism (principal) | CPT/HCPCS: 36415; 84443 ==

== ENCOUNTER → 2019-01-17 | Outpatient (CLI) | payer MEDICARE, OTHER ==
--- NOTE | 2019-01-18 08:44 | MM ---
Reason for exam: screening (asymptomatic). Last mammogram was performed 3 years and 1 month ago. History: Patient has history of other cancer at age 43. Physical Findings: A clinical breast exam by your physician is recommended on an annual basis and results should be correlated with mammographic findings. MG 3D Screening Mammo W/Cad Bilateral CC and MLO view(s) were taken. Prior study comparison: December 13, 2015, bilateral MG screening mammo w CAD. October 15, 2011, mammogram, performed at [place]. There are scattered fibroglandular densities. Finding: There is a 7 mm high density, oval mass in the inner quadrant, posterior position of the left breast. There are benign appearing calcifications. ASSESSMENT: Incomplete: need additional imaging evaluation, BI-RAD 0 RECOMMENDATION: Ultrasound of the left breast. [facility] will attempt to contact patient to return for ultrasound.
== END | disposition home or self-care (01) ==
LOC: RADMAMWWP 13:05
PROVIDERS: ATTEND Obstetrics & Gynecology
DX: Z12.31 Encounter for screening mammogram for malignant neoplasm of breast (principal)
CPT/HCPCS: 77063; 77067

== ENCOUNTER → 2019-01-31 | Outpatient (CLI) | payer MEDICARE, OTHER ==
--- NOTE | 2019-02-01 07:48 | USB ---
Reason for exam: additional evaluation requested from abnormal screening. History: Patient is postmenopausal and has history of other cancer at age 43. Physical Findings: Nurse Summary: left breast medial palpable in dermis layer 0.5 x 1cm, movable, non-tender (nurse ts). US Breast Workup Limited LT Left limited breast ultrasound including focal area of concern, retroareolar and axilla demonstrates a 7 x 8 x 9mm oval, mixed, hypoechoic lesion at 8 o'clock BB. There is posterior through transmission suggesting that this represents a cyst. There is also partial involvement of the dermis. Finding most suggestive of a sebaceous cyst. Scanned 6-9 o'clock. These results were verbally communicated with the patient and result sheet given to the patient on 01/31/19. ASSESSMENT: Probably benign, BI-RAD 3 RECOMMENDATION: Ultrasound of the left breast in 6 months. Manage patient on a clinical basis. Consider dermatology consult, for suspected sebaceous cyst.
== END | disposition home or self-care (01) ==
LOC: RADUSWWP 14:24
PROVIDERS: ATTEND Obstetrics & Gynecology
DX: R92.8 Other abnormal and inconclusive findings on diagnostic imaging of breast (principal)

== ENCOUNTER → 2019-03-22 | Outpatient (CLI) | payer MEDICARE | LOC: LABWHC1 08:53 | PROVIDERS: ATTEND Internal Medicine Endocrinology, Diabetes & Metabolism | DX: E03.8 Other specified hypothyroidism (principal) | CPT/HCPCS: 36415; 84443 ==

== ENCOUNTER → 2019-09-22 | Outpatient (CLI) | payer MEDICARE ==
--- NOTE | 2019-09-22 15:51 | CT ---
EXAMINATION TYPE: CT chest wo con DATE OF EXAM: 09/22/2019 COMPARISON: Localization CT 11/13/2018 HISTORY: Enlarged lymph nodes. CT DLP: 729 mGycm, Automated exposure control for dose reduction was used. CONTRAST: Performed injected with 0 mL of Isovue 300. TECHNIQUE: Axial images were obtained at 5 mm thick sections. Reconstructed images are reviewed on [employer] computer in the coronal plane. FINDINGS: Portion of the thyroid visualized is normal. No suspicious lung nodules or focal infiltrates are present. No enlarged mediastinal or hilar adenopathy is evident. Adenopathy is diminished from the compariso n of October 2018 with subcentimeter shotty lymphadenopathy remaining within the mediastinum. The asc ending aorta diameter at the level of the main pulmonary artery is 2.7 cm. The main pulmonary artery diameter at the bifurcation is 2.9 cm. Clinical consideration for pulmonary hypertension is recommen ded. Limited CT sections are obtained through the upper abdomen. Abdomen is essentially unremarkable. IMPRESSIONS: 1. There is mild discrepancy of the pulmonary artery and pulmonary vein caliber which could suggest s ome mild pulmonary hypertension. 2. CTA chest is otherwise unremarkable. Prior prominent adenopathy within the mediastinum appears dim inished over the interval.
== END | disposition home or self-care (01) ==
LOC: RADCTMAIN 12:34
PROVIDERS: ATTEND Internal Medicine Critical Care Medicine
DX: I77.89 Other specified disorders of arteries and arterioles (principal)
CPT/HCPCS: 71250

== ENCOUNTER → 2019-10-27 | Outpatient (CLI) | payer MEDICARE ==
--- NOTE | 2019-10-27 11:35 | USB ---
Reason for exam: clinical finding. History: Patient is postmenopausal and has history of other cancer at age 43. Physical Findings: Nurse Summary: Patient complains of left breast lump x 2 years, 1cm sebaceous cyst medial (nurse mj). US Breast Limited LT Left limited breast ultrasound including focal area of concern, retroareolar and axilla demonstrates a 1.0 x 0.8 x 0.9cm mixed lesion at 8 o'clock involves the skin. Dermatology follow up recommended with excision. These results were verbally communicated with the patient and result sheet given to the patient on 10/27/19. ASSESSMENT: Suspicious, BI-RAD 4 RECOMMENDATION: Surgical consultation of the left breast. (Dermatology or surgery) Called Dr. Ryder's office with mammographic findings. PRELIMINARY REPORT CALLED AND FAXED TO DR. RYDER ON 10/27/19.
== END | disposition home or self-care (01) ==
LOC: RADUSWWP 09:15
PROVIDERS: ATTEND Obstetrics & Gynecology
DX: N60.02 Solitary cyst of left breast (principal)

== ENCOUNTER → 2019-10-31 | Outpatient (CLI) | payer MEDICARE ==
--- NOTE | 2019-10-31 13:41 | MR ---
EXAMINATION TYPE: MR thoracic spine wo con DATE OF EXAM: 10/31/2019 COMPARISON: CT chest dated 09/22/2019 and MRI of the thoracic spine dated 09/23/2017 HISTORY: Thoracic spine pain TECHNIQUE: Multiplanar, multisequence images of the thoracic spine were acquired without intravenous contrast. FINDINGS: There has been interval multilevel fusion of the thoracolumbar spine. This begins at T9 and extends p ast the [id number] into the lumbar spine. This creates susceptibility artifact severely limiting e xamination at the postsurgical levels. On the localizer images there are at least disc bulges is not disc herniations at C4-C5, C5-C6 and C6-C7 as well as to a lesser degree at C7-T1. The vertebral body heights and alignment are maintained of the visualized upper thoracic spine. Nondiagnostic of the lo wer thoracic spine given susceptibility artifact. T1-T2: There is a right eccentric broad-based disc bulge resulting in minimal right neural foraminal narrowing without spinal canal stenosis. No left-sided neural foraminal narrowing. T3-T4: There is pronounced ligamentum flavum buckling and some facet arthropathy creating mild spinal canal stenosis in combination with a small broad-based disc bulge. Facet arthropathy contributes to severe bilateral neural foraminal narrowing. T4-T5: There is disc desiccation without spinal canal stenosis or neural foraminal narrowing. T5-T6: Disc desiccation without spinal canal stenosis nor neural foraminal narrowing. T6-T7: Small broad-based disc bulge without spinal canal stenosis or neural foraminal narrowing. T7-T8: There is a very small central disc herniation narrowing the ventral subarachnoid space and abu tting the ventral thecal sac. However there is no significant spinal canal stenosis. Neural foramen a re patent. T8-T9: Disc desiccation without spinal canal stenosis or neuroforaminal narrowing. T9-T10: Ligamentum flavum buckling on the left and facet arthropathy resulting in moderate left neura l foraminal narrowing and mild left-sided spinal canal stenosis. Right neuroforamen is patent. The remainder of the inferior thoracic levels are nondiagnostic given extensive susceptibility artifa ct from the patient's surgical fusion hardware. IMPRESSION: 1. Mild spinal canal stenosis at T3-T4 secondary to pronounced ligamentum flavum buckling and facet a rthropathy. This also results in severe bilateral neural foraminal narrowing. 2. Very small central disc herniation at T7-T8 without significant spinal canal stenosis. 3. Ligamentum flavum buckling and facet arthropathy on the left at T9-T10 creating mild spinal canal stenosis at the left lateral aspect of the spinal canal and moderate left neural foraminal narrowing. 4. Mild to moderate degenerative disc disease of the remainder of the thoracic spine as detailed abov e. 5. Postsurgical change of the lower thoracic spine renders the inferior levels nondiagnostic.
== END | disposition home or self-care (01) ==
LOC: RADMRIMAIN 10:27
PROVIDERS: ATTEND Orthopaedic Surgery Orthopaedic Surgery of the Spine
DX: M48.04 Spinal stenosis, thoracic region (principal); M51.24 Other intervertebral disc displacement, thoracic region; M51.34 Other intervertebral disc degeneration, thoracic region; M46.94 Unspecified inflammatory spondylopathy, thoracic region; Z98.890 Other specified postprocedural states
CPT/HCPCS: 72146

== ENCOUNTER → 2019-11-11 | Outpatient (CLI) | payer MEDICARE ==
--- NOTE | 2019-11-11 11:45 | CT ---
EXAMINATION TYPE: CT iac wo con DATE OF EXAM: 11/11/2019 COMPARISON: PET/CT 11/13/2018 HISTORY: chronic vertigo and ringing in ears CT DLP: 150 mGycm Automated exposure control for dose reduction was used. TECHNIQUE: Axial images 1 mm thick sections through the temporal bones. Reconstructed images in the c oronal plane are reviewed on the computer. FINDINGS: Paranasal sinuses are clear. Left septal deviation is noted. Ostiomeatal units are patent lobes are s ymmetrical. Extraocular muscles appear unremarkable. Attention is paid to the internal auditory canals. No expansion or erosion is evident. No cerebellar pontine angle masses are evident. Semicircular canals and cochlea are normal bilaterally. Middle ears and external auditory canals are normal. IMPRESSION: NORMAL INTERNAL AUDITORY CANAL STUDY.
== END | disposition home or self-care (01) ==
LOC: RADCTMAIN 09:06
PROVIDERS: ATTEND Otolaryngology
DX: H81.10 Benign paroxysmal vertigo, unspecified ear (principal)
CPT/HCPCS: 70480

== ENCOUNTER → 2020-04-02 | Outpatient (CLI) | payer MEDICARE, OTHER ==
--- NOTE | 2020-04-03 09:31 | CT ---
EXAMINATION TYPE: CT chest wo con DATE OF EXAM: 04/02/2020 COMPARISON: 09/22/2019 HISTORY: Enlarged lymph nodes. CT DLP: 621.9 mGycm, Automated exposure control for dose reduction was used. CONTRAST: None TECHNIQUE: Axial images were obtained at 5 mm thick sections. Reconstructed images are reviewed on [employer] computer in the coronal plane. FINDINGS: Portion of the thyroid visualized is normal. No suspicious lung nodules or focal infiltrates are present. No enlarged mediastinal or hilar adenopathy is evident. No enlarging adenopathy is evident. There r emains shotty lymphadenopathy. Adenopathy evaluation is somewhat limited due to lack of intravenous c ontrast. The ascending aorta diameter at the level of the main pulmonary artery is 3.0 cm. The main pulmonary artery diameter at the bifurcation is 2.[address] sections are obtained through the upper abdomen. Gastric sleeve surgery is evident. Postsu rgical changes are within the lower thoracic spine. IMPRESSIONS: 1. No suspicious changes or increasing adenopathy.
== END | disposition home or self-care (01) ==
LOC: RADCTMAIN 17:09
PROVIDERS: ATTEND Internal Medicine Critical Care Medicine
DX: R59.0 Localized enlarged lymph nodes (principal)
CPT/HCPCS: 71250

== ENCOUNTER 2020-05-14 07:51 | Day surgery (SDC) | payer MEDICARE, OTHER ==
[2020-05-09 15:13] VITALS: BMI 49.2
[~2020-05-14 07:51] MED LIST changes: -ALBUTEROL NEB (CONC) 2.5 MG/0.5 ML INHALATION ONE; +LIDOCAINE 1% (10MG/ML) FOR IV START INTRADERMA PRN; -LIDOCAINE 1% 20 ML VIAL (10MG/ML) FOR IV START INTRADERMA PRN; -LIDOCAINE 2% (PF) 20 MG/ML 5 ML VIAL INHALATION ONE; -LIDOCAINE VISCOUS 300 MG/15 ML CUP MUCOUS MEM ONE; -SODIUM CHLORIDE 0.9% 1,000 ML IV SCH
[2020-05-14 08:44] VITALS: TEMP 97.1
[2020-05-14 08:46] LABS: Glucose,Whole Blood 113 mg/dL (75-99)
[2020-05-14] MEDS ORDERED: PROPOFOL 10 MG/ML 20 ML VIAL IV ONE (08:46)
--- NOTE | 2020-05-14 09:27 | P.PCN ---
Date of Procedure: 05/14/20 Description of Procedure: BRIEF HISTORY: Patient is a 50-year-old female presenting for outpatient colonoscopy for screening for malignant neoplasm of the colon. No prior colonoscopy reported. No family history of colon cancer. Patient reports chronic diarrhea baseline. PROCEDURE PERFORMED: Colonoscopy with polypectomy. PREOPERATIVE DIAGNOSIS: Screening for malignant neoplasm in the colon, no prior colonoscopy. ESTIMATED BLOOD LOSS: Minimal. IV sedation per Anesthesia. PROCEDURE: After informed consent was obtained, the patient, was brought into the endoscopy unit. IV sedation was administered by Anesthesia under continuous monitoring. Digital rectal examination was normal. Initially the Olympus CF-190 flexible video colonoscope was then inserted in the rectum, gradually advanced into the cecum without any difficulty. Careful examination was performed as the scope was gradually being withdrawn. Ileocecal valve and the appendiceal orifice were visualized and appeared normal. Prep was excellent. Mucosa of the cecum, ascending colon, transverse colon, descending colon, sigmoid colon, and rectum appeared normal. 3 diminutive polyps measuring 2-3 mm in size removed from the hepatic flexure, descending colon, and sigmoid colon with cold forcep polypectomy. A few scattered diverticula noted in the left colon. Retroflexion was performed in the rectum and no lesions were seen. The patient tolerated the procedure well. IMPRESSION: 3 diminutive polyps removed with cold forcep polypectomy from the hepatic flexure, descending colon and sigmoid colon. Mild left colonic diverticulosis. RECOMMENDATIONS: Findings of this examination were discussed with the patient. Okay to resume diet. Okay to resume medication. Await pathology from polypectomies. Would recommend repeat colonoscopy in 5 years pending pathology from polypectomies.
[2020-05-14 09:32] VITALS: BP 92/58; PULSE 68; RESP 18
== END 2020-05-14 10:15 | disposition home or self-care (01) ==
LOC: ORWHC2ENDO 07:51
PROVIDERS: ATTEND Internal Medicine
DX: D12.4 Benign neoplasm of descending colon (principal); D12.3 Benign neoplasm of transverse colon; K63.5 Polyp of colon; K57.30 Diverticulosis of large intestine without perforation or abscess without bleeding; K52.9 Noninfective gastroenteritis and colitis, unspecified; K21.9 Gastro-esophageal reflux disease without esophagitis; E11.9 Type 2 diabetes mellitus without complications; G47.33 Obstructive sleep apnea (adult) (pediatric); N28.9 Disorder of kidney and ureter, unspecified; E89.0 Postprocedural hypothyroidism; Z87.891 Personal history of nicotine dependence; Z99.89 Dependence on other enabling machines and devices; Z79.890 Hormone replacement therapy; Z79.891 Long term (current) use of opiate analgesic; Z79.899 Other long term (current) drug therapy; Z91.041 Radiographic dye allergy status; Z91.013 Allergy to seafood; Z90.49 Acquired absence of other specified parts of digestive tract; Z98.51 Tubal ligation status; Z90.89 Acquired absence of other organs; Z98.84 Bariatric surgery status; Z98.890 Other specified postprocedural states; Z79.84 Long term (current) use of oral hypoglycemic drugs
CPT/HCPCS: 88305; 45380; J2704

== ENCOUNTER → 2020-05-17 | Outpatient (CLI) | payer MEDICARE, OTHER ==
--- NOTE | 2020-05-17 11:10 | FL ---
Barium swallow HISTORY: Dysphasia Patient was given high density barium to drink. Swallowing mechanism is normal. There is no extrinsic or intrinsic esophageal lesion. Patient is stat us post gastric vascular surgery. No evident gastroesophageal reflux. No obstruction to flow. Postop changes are noted to the spine. 40 seconds fluoroscopy time. 12 intraoperative images. IMPRESSION: Postop changes.
== END | disposition home or self-care (01) ==
LOC: RADUSWWP 09:39
PROVIDERS: ATTEND Surgery Plastic and Reconstructive Surgery
DX: Z98.890 Other specified postprocedural states (principal)
CPT/HCPCS: 74220

== ENCOUNTER → 2020-06-06 | Outpatient (CLI) | payer MEDICARE, OTHER ==
[2020-06-06 13:40] VITALS: BP 103/70; PULSE 72; RESP 20; TEMP 98.7; BMI 113.0
--- NOTE | 2020-06-06 14:22 | P.PN ---
Subjective Progress Note Date: 06/06/20 She comes in with troubles with her thyroid medications. Labs reviewed shows uncontrolled TSH medications. She is not doing well with generic medications. Lyrica is interferes with appetite. Thyroids medication to be adjusted. Food diary journal. Reglan for gastroparesisi Objective - Vital Signs Vital signs: Vital Signs Temp 98.7 F 06/06/20 13:31 Pulse 72 06/06/20 13:31 Resp 20 06/06/20 13:31 BP 103/70 06/06/20 13:31 Pulse Ox 98 06/06/20 13:31 Intake & Output 06/05/20 06/06/20 06/06/20 18:59 06:59 18:59 Weight 305.8 kg
== END | disposition home or self-care (01) ==
LOC: BARWHC3 13:02
PROVIDERS: ATTEND Surgery Plastic and Reconstructive Surgery
DX: K31.84 Gastroparesis (principal); E07.9 Disorder of thyroid, unspecified; Z79.890 Hormone replacement therapy
CPT/HCPCS: 99211

== ENCOUNTER 2020-06-13 13:53 | Observation (INO) | payer MEDICARE, OTHER ==
--- NOTE | 2020-06-13 14:25 | ED ---
Chest Pain HPI - General Chief Complaint: Chest Pain Stated Complaint: headache/chest tightness Time Seen by Provider: 06/13/20 14:06 Source: patient, RN notes reviewed Mode of arrival: wheelchair Limitations: no limitations - History of Present Illness Initial Comments: This is a 50-year-old female with a history of throat cancer 6 years ago diabetes thyroidectomy cholecystectomy bariatric surgery who states she's had a frontal headache for about 10 days he started developing some intermittent chest pressure yesterday. States she feels weak she has had some rhinorrhea that she related to a sinus congestion. Occasionally feels cold she states the headache is frontal in gets worse when she bends over. No overt fevers chills sweats earaches sore throat cough or phlegm production. No other modifying factors at this time MD Complaint: chest pain - Related Data Home Medications Medication Instructions Recorded Confirmed Multivitamins, Thera [Multivitamin 1 tab PO DAILY 02/16/17 06/13/20 (formulary)] valACYclovir [Valtrex] 500 mg PO DAILY 10/06/17 06/13/20 Baclofen [Lioresal] 10 mg PO TID 12/31/18 06/13/20 Atorvastatin [Lipitor] 20 mg PO HS 06/13/20 06/13/20 Glimepiride [Amaryl] 1 mg PO AC-BRKFST 06/13/20 06/13/20 HYDROcodone/APAP 10-325MG [[place] 1 tab PO TID 06/13/20 06/13/20 10-325] Levothyroxine Sodium [Synthroid] 250 mcg PO DAILY 06/13/20 06/13/20 Metoclopramide [Reglan] 10 mg PO TID PRN 06/13/20 06/13/20 Pregabalin [Lyrica] 200 mg PO BID 06/13/20 06/13/20 Allergies Allergy/AdvReac Type Severity Reaction Status Date / Time shellfish derived AdvReac Unknown Nausea & Verified 06/13/20 15:05 Vomiting & Diarrhea Iodinated Contrast Media AdvReac KIDNEY Verified 06/13/20 15:05 [Iodinated Contrast Media - DISEASE, Oral and] shell fish allergy Review of Systems ROS Statement: Those systems with pertinent positive or pertinent negative responses have been documented in the HPI. ROS Other: All systems not noted in ROS Statement are negative. 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 History of Any Multi-Drug Resistant Organisms: None Reported Past Surgical History: Back Surgery, Bariatric Surgery, Cholecystectomy, Tubal Ligation Additional Past Surgical History / Comment(s): thyroidectomy, VIVIAN-EN -Y (2016), back surgery x3 Past Anesthesia/Blood Transfusion Reactions: Previous Problems w/ Anesthesia Additional Past Anesthesia/Blood Transfusion Reaction / Comment(s): Difficult intubation due to throat cancer with chemo & radiation tx. Past Psychological History: No Psychological Hx Reported Smoking Status: Former smoker Past Alcohol Use History: None Reported Past Drug Use History: None Reported - Past Family History Mother Family Medical History: Hyperlipidemia, Liver Disease Additional Family Medical History / Comment(s): HEPATITIS Father Additional Family Medical History / Comment(s): manic depressive, from suicide, ulcers-half of stomach removed General Exam - General Exam Comments Initial Comments: This is a well-developed well-nourished awake alert oriented 3 female Limitations: no limitations General appearance: alert, in no apparent distress Head exam: Present: atraumatic, normocephalic, normal inspection Eye exam: Present: normal appearance, PERRL, EOMI. Absent: scleral icterus, conjunctival injection, periorbital swelling ENT exam: Present: normal exam, mucous membranes moist Neck exam: Present: normal inspection. Absent: tenderness, meningismus, lymphadenopathy Respiratory exam: Present: normal lung sounds bilaterally, chest wall tenderness (I'll discomfort to palpation of the right costal sternal margin). Absent: respiratory distress, wheezes, rales, rhonchi, stridor Cardiovascular Exam: Present: regular rate, normal rhythm, normal heart sounds. Absent: systolic murmur, diastolic murmur, rubs, gallop, clicks GI/Abdominal exam: Present: soft, normal bowel sounds. Absent: distended, tenderness, guarding, rebound, rigid Extremities exam: Present: normal inspection, full ROM, normal capillary refill. Absent: tenderness, pedal edema, joint swelling, calf tenderness Back exam: Present: normal inspection Neurological exam: Present: alert, oriented X3, CN II-XII intact Psychiatric exam: Present: normal affect, normal mood Skin exam: Present: warm, dry, intact, normal color. Absent: rash Course Vital Signs 06/13/20 06/13/20 13:55 15:46 Temperature 98.0 F Pulse Rate 63 54 L Respiratory 20 16 Rate Blood Pressure 136/83 124/79 O2 Sat by Pulse 98 95 Oximetry - Reevaluation(s) Reevaluation #1: 06/13/20 17:31 I did a long discussion with the patient she was told to the past by her oncologist that she had late stage kidney disease and should not get contrast at all. Chest Pain MDM - MDM I did review the imaging and report no acute findings. Interval and discussed the patient be admitted case discussed with Dr. Caraballo. The VQ scan will be ordered and further or chest will be performed Disposition Clinical Impression: Chest pain, Frontal headache, Elevated d-dimer Disposition: ADMITTED IP TO THIS HOSP Condition: Fair Referrals: Arun Zamora MD [Primary Care Provider] - 1-2 days
--- NOTE | 2020-06-13 15:30 | XR ---
EXAMINATION TYPE: XR chest 2V DATE OF EXAM: 06/13/2020 COMPARISON: 01/05/2019 HISTORY: Chest pain TECHNIQUE: Frontal and lateral views of the chest are obtained. FINDINGS: There is no focal air space opacity. No evidence for pneumothorax. No pleural effusion. The cardiac silhouette size is within normal limits. The osseous structures are grossly intact. IMPRESSION: 1. No acute cardiopulmonary process.
[2020-06-13 15:35] LABS: Anisocytosis Slight; Basophils % (A) 1 %; Eosinophils # (A) 0.2 k/uL (0-0.7); Eosinophils % (A) 3 %; HCT 39.9 % (34.0-46.0); HGB 12.5 gm/dL (11.4-16.0); Lymphocytes % (A) 22 %; MCH 25.8 pg (25.0-35.0); MCHC 31.3 g/dL (31.0-37.0); MCV 82.5 fL (80.0-100.0); Mean Platelet Volume 8.7; Monocytes # (A) 0.3 k/uL (0-1.0); Monocytes % (A) 7 %; Neutrophils % (A) 65 %; Platelet Count 226 k/uL (150-450); RBC 4.84 m/uL (3.80-5.40); RDW 16.5 % (11.5-15.5); WBC 4.6 k/uL (3.8-10.6)
[2020-06-13 15:48] LABS: Albumin 3.9 g/dL (3.5-5.0); Calcium 8.5 mg/dL (8.4-10.2); Magnesium 1.6 mg/dL (1.6-2.3); Potassium 4.9 mmol/L (3.5-5.1); Total Bilirubin 0.4 mg/dL (0.2-1.3); Total Protein 6.7 g/dL (6.3-8.2)
[2020-06-13 15:50] LABS: INR 0.9 (<1.2); Partial Thromboplastin Time 23.5 sec (22.0-30.0); Prothrombin Time 9.5 sec (9.0-12.0)
[2020-06-13 15:56] LABS: D-Dimer 1.25 mg/L FEU (<0.60)
[2020-06-13] MEDS ORDERED: diphenhydrAMINE 50 MG/ML 1 ML VIAL IVP STA (16:43)
[2020-06-13] MEDS ORDERED: FAMOTIDINE 20 MG/2 ML VIAL IV STA (16:43)
[2020-06-13] MEDS ORDERED: methylPREDNISolone SOD SUCCI 125 MG/2 ML VIAL IV STA (16:43)
[2020-06-13] MEDS ORDERED: NITROGLYCERIN SL TABS 0.4 MG TAB SUBLINGUAL PRN (17:33)
[2020-06-13] MEDS ORDERED: METOCLOPRAMIDE 10 MG TAB PO PRN (17:40)
--- NOTE | 2020-06-13 19:36 | US ---
EXAMINATION TYPE: US venous doppler duplex LE DATE OF EXAM: 06/13/2020 7:30 PM COMPARISON: NONE CLINICAL HISTORY: Elevated d-dimer. Elevated D-Dimer. No hx of DVT. Patient is not taking blood thinn ers. SIDE PERFORMED: Bilateral TECHNIQUE: The lower extremity deep venous system is examined utilizing real time linear array sonog mary with graded compression, doppler sonography and color-flow sonography. VESSELS IMAGED: External Iliac Vein (EIV) Common Femoral Vein Deep Femoral Vein Greater Saphenous Vein * Femoral Vein Popliteal Vein Small Saphenous Vein * Proximal Calf Veins (* superficial vessels) Right Leg: No evidence of DVT in veins imaged at this time from prox calf veins to EIV. Patient bartolo ot tolerate compression of distal femoral vein. Left Leg: No evidence of DVT in veins imaged at this time from prox calf veins to EIV. Patient canno t tolerate compression of distal femoral vein. Limited due to patient body habitus. IMPRESSION: 1. Bilateral lower extremity ultrasound negative for deep venous thrombosis. 2. There is some limitation due to body habitus and patient tolerance of compression.
--- NOTE | 2020-06-13 20:23 | NM ---
EXAMINATION TYPE: NM pul vent and perfuse DATE OF EXAM: 06/13/2020 COMPARISON: Chest x-ray 06/13/2020 HISTORY: Chest pain elevated d-dimer TECHNIQUE: Utilizing inhalation of 38.6 mCi Tc 99m DTPA aerosol and intravenous injection of 5.2 mCi of Tc 99m MAA, ventilation and perfusion images are acquired post injection in multiple projections. FINDINGS: Normal radiotracer distribution is noted in the lungs. No evidence of moderate or large evidence of m ismatched defects. No triple matched defects are evident. IMPRESSION: Very low probability for pulmonary embolism.
[2020-06-13] MEDS ORDERED: ATORVASTATIN 20 MG TAB PO SCH (21:00)
[2020-06-13] MEDS: HYDROcodone/APAP 10-325MG 1 EACH TAB PO SCH (21:42)
[2020-06-13] MEDS: BACLOFEN 10 MG TAB PO SCH (21:43)
[2020-06-13] MEDS: PREGABALIN 100 MG CAP PO SCH (21:43)
[2020-06-13] MEDS: SODIUM CHLORIDE 0.9% 1,000 ML IV SCH (21:43)
[2020-06-14 03:41] LABS: Cholesterol 168 mg/dL (<200); HDL Cholesterol 50 mg/dL (40-60); LDL Cholesterol,Calculated 86 mg/dL (0-99); Triglycerides 161 mg/dL (<150)
[2020-06-14] MEDS: SODIUM CHLORIDE 0.9% 1,000 ML IV SCH ×2 (04:55→06:11)
[2020-06-14 06:11] LABS: Glucose,Whole Blood 95 mg/dL (75-99)
[2020-06-14] MEDS ORDERED: LEVOTHYROXINE 125 MCG TAB PO SCH (06:30)
[2020-06-14] MEDS ORDERED: DOBUTamine DRIP for NUC MED 500 MG in DEXTROSE/WATER 1 250ML.BAG IV ONE (07:36)
[2020-06-14 07:56] VITALS: BP 110/71; PULSE 62; RESP 16; TEMP 97.3
[2020-06-14] MEDS: BACLOFEN 10 MG TAB PO SCH (08:48)
[2020-06-14] MEDS: HYDROcodone/APAP 10-325MG 1 EACH TAB PO SCH (08:48)
[2020-06-14] MEDS: PREGABALIN 100 MG CAP PO SCH (08:48)
[2020-06-14] MEDS: GLIMEPIRIDE 1 MG TAB PO SCH ×2 (08:51→11:51)
[2020-06-14] MEDS ORDERED: ASPIRIN 325 MG TAB PO SCH (09:00)
[2020-06-14] MEDS ORDERED: valACYclovir 500 MG TAB PO SCH (09:00)
[2020-06-14] MEDS ORDERED: MULTIVITAMINS, THERA 1 EACH TAB PO SCH (09:00)
--- NOTE | 2020-06-14 11:00 | ECHOF ---
Referral Reason:CP MEASUREMENTS -------- HEIGHT: 167.6 cm WEIGHT: 138.3 kg BP: RVIDd: 2.9 cm (< 3.3) IVSd: 1.1 cm (0.6 - 1.1) LVIDd: 4.3 cm (3.9 - 5.3) LVPWd: 1.5 cm (0.6 - 1.1) IVSs: 1.6 cm LVIDs: 2.2 cm LVPWs: 2.1 cm LAESV Index (A-L): 22.79 ml/m Ao Diam: 2.7 cm (2.0 - 3.7) AV Cusp: 1.9 cm (1.5 - 2.6) LA Diam: 3.6 cm (2.7 - 3.8) MV EXCURSION: 17.007 mm (> 18.000) MV EF SLOPE: 89 mm/s (70 - 150) EPSS: 0.3 cm MV E Darryn: 1.01 m/s MV DecT: 232 ms MV A Darryn: 0.48 m/s MV E/A Ratio: 2.10 RAP: 5.00 mmHg RVSP: 11.68 mmHg FINDINGS -------- Sinus rhythm. This was a technically adequate study. The left ventricular size is normal. There is mild concentric left ventricular hypertrophy. Overa ll left ventricular systolic function is normal with, an EF between 55 - 60 %. The diastolic fillin g pattern is normal for the age of the patient 13.16. The right ventricle is normal in size. Normal LA size by volume 22+/-6 ml/m2. The right atrial size is normal. The aortic valve is trileaflet, and appears structurally normal. No aortic stenosis or regurgitation. The mitral valve is normal. There is trace mitral regurgitation. The tricuspid valve appears structurally normal. Trace tricuspid regurgitation present. Right amaris tricular systolic pressure is normal at < 35 mmHg. The pulmonic valve was not well visualized. There is no pulmonic regurgitation present. The aortic root size is normal. IVC Not well visulized. There is no pericardial effusion. CONCLUSIONS -------- 1. There is mild concentric left ventricular hypertrophy. 2. Overall left ventricular systolic function is normal with, an EF between 55 - 60 %. 3. The diastolic filling pattern is normal for the age of the patient 13.16 4. Normal LA size by volume 22+/-6 ml/m2. 5. The aortic valve is trileaflet, and appears structurally normal. No aortic stenosis or regurgitati on. 6. There is trace mitral regurgitation. 7. Trace tricuspid regurgitation present. SOFTWARE DEVELOPMENT ANALYST: Laurel Stevens RDCS
--- NOTE | 2020-06-14 11:44 | CONS ---
CONSULTATION Mrs Lord is a 50-year-old female with a history of diabetes who presented with headache as well as chest discomfort. She has a headache on and off for the last few days. She has been having discomfort when she takes a deep breath. She has no cough or wheezing with it. No fever. She has no prior documented history of cardiac disease. She is limited in her activities because of her back and knee discomfort. She has underwent surgical intervention on her back recently. She has occasional swelling. She has no clear PND, orthopnea. She has some dizziness but no palpitation or syncope. She has no prior cardiac history or recent cardiac workup. She has prior history of bariatric surgery. MEDICATION: Include Valtrex, Lyrica, Synthroid, glimepiride, and Lipitor 20 mg daily. REVIEW OF SYSTEMS: RESPIRATORY SYSTEM: She has no documented history of asthma, emphysema or bronchitis. She has dyspnea on exertion. GI SYSTEM: No recent GI bleeding, no peptic ulcer disease. SYSTEM: No dysuria or hematuria. NERVOUS SYSTEM: No history of stroke or seizure. PHYSICAL EXAMINATION: A 50-year-old female, alert, oriented, in no apparent distress. Blood pressure 112/70 with a heart rate in the 60s. HEAD: Normocephalic. EYES: Sclerae nonicteric. NECK: Good upstroke, no bruit, no jugular venous distension. LUNGS: Clear to auscultation. HEART: Regular rate and rhythm, S1, S2. No S3. No rub or gallop. ABDOMEN: Soft, obese, nontender. Positive bowel sounds, no organomegaly. EXTREMITIES: No significant edema. LAB DATA: Revealed a troponin less than 0.012 for 3 samples, cholesterol 168, LDL of 86, BUN and creatinine 22 and 1.16. D-dimer 1.25. Hemoglobin 12.5. Ventilation/perfusion scan showed very low probability for PE. Duplex scan lower extremities was unremarkable. EKG reveals sinus mechanism normal axis and intervals with nonspecific ST-T wave. T- wave changes inferiorly with poor R-wave progression. Chest x-ray shows no acute infiltrate. IMPRESSION: 1. Chest discomfort has atypical features for ischemic, unlikely to be cardiac in etiology. 2. History of diabetes. 3. History of back discomfort. 4. Obesity. RECOMMENDATION: I will proceed with the recommended to obtain echocardiogram with Doppler as well as dobutamine stress echocardiogram. Depending on those findings, further recommendation will be made. Thank you for this consult. Will follow with you. MMODL / IJN: [id number] /
[2020-06-14 11:47] LABS: Glucose,Whole Blood 129 mg/dL (75-99)
--- NOTE | 2020-06-14 14:20 | ECHOS ---
STRESS ECHOCARDIOGRAM LUMASON: Vial INDICATIONS: Chest pain. MEDICATIONS: Multivitamin, Valtrex, Lioresal, Lipitor, Amaryl, [place], Synthroid, Reglan, Lyrica. BASELINE HEART RATE: 60 BASELINE BLOOD PRESSURE: 99/47 MAXIMUM HEART RATE: 142 MAXIMUM BLOOD PRESSURE: 184/88 85% MPHR: 144 100% MPHR: 169 METS: MAXIMUM STAGE REACHED: TOTAL EXERCISE TIME: CLINICAL INFORMATION: Baseline rhythm is sinus mechanism, rate of 60. Rare PVCs, nonspecific ST-T wave changes, baseline blood pressure 99/47 mmHg. Patient received infusion of dobutamine per protocol, peak rate 142 beats per minute which is equal to 84% of maximum predicted heart rate. Peak blood pressure 184/88 mmHg. Electrocardiograph monitoring revealed no evidence of diagnostic ischemic ST deviation. FINDINGS: Baseline echocardiogram revealed normal wall motion. At peak infusion, there was normal wall thickening and motion without any hypokinesis or dyskinesis. CONCLUSION: 1. Normal electrocardiograph response to dobutamine infusion. 2. Normal stress echocardiogram with no evidence of stress-induced ischemia. MMODL / IJN: [id number] /
--- NOTE | 2020-06-14 22:43 | P.HPIM ---
History of Present Illness H&P Date: 06/14/20 Chief Complaint: Chest pain History of presenting complaint: This is a 50-year-old patient was chronic stable medical conditions include diabetes with this, chronic kidney disease stage III, peripheral neuropathy, chronic low back pain, history of throat cancer that was treated with radiation and chemo in 2012, sleep apnea patient does not use a CPAP anymore. Patient had a slight headache for about 2 weeks for last 2 days that chest pain or pressure. Some dizziness. No perspiration or lightheadedness. No fever no chills. Patient also awaiting a eye checkup. With some eyestrain. Admitted for the same Review of systems: GEN.: None EYES: Eyestrain HEENT: Headache as above NECK: None RESPIRATORY: None CARDIOVASCULAR: As above GASTROINTESTINAL: None GENITOURINARY: None MUSCULOSKELETAL: Chronic low back pain] LYMPHATICS: None HEMATOLOGICAL: None PSYCHIATRY: None NEUROLOGICAL: Baseline uses a walker Past medical history to include: Diabetes mellitus type 2, chronic kidney disease stage III, throat cancer of the uvula treated with radiation and chemo in 2012, chronic low back pain, peripheral neuropathy, sleep apnea that has not improved with weight loss chronic kidney disease stage III. Social history: Lives with the mother. Smoked for 26 years 1 pack a day stopped in 2013. No alcohol. Does use a walker. Physical examination: VITAL SIGNS: 98, 63, 20, 1 3683, 98% on room air GENERAL: [BMI 49.2, sitting up, awake. EYES: Pupils equal. Conjunctiva normal. HEENT: External appearance of nose and ears normal, oral cavity grossly normal. NECK: JVD not raised; masses not palpable. HEART: First and second heart sounds are normal; no edema. LUNGS: Respiratory rate normal; clear to auscultation. ABDOMEN: Soft, nontender, liver spleen not palpable, no masses palpable. PSYCH: Alert and oriented x3; mood and affect normal. NEUROLOGICAL: Cranial nerves grossly intact; no facial asymmetry, power and sensation grossly intact. LYMPHATICS: No lymph nodes palpable in the axilla and neck INVESTIGATIONS, reviewed in the clinical context: White count 4.6 hemoglobin 12.5 platelets 226 potassium 4.9 creatinine 1.16 Troponin I 3 negative LDL 86 EKG tracing personally reviewed by me-sinus rhythm with some flipped T waves in inferior leads Chest x-ray film personally reviewed by me-cardiomegaly, possibly chronic changes, rods in the spine Venous Doppler-negative for DVT VQ scan-low probably for PE Assessment: -Anterior chest wall pain reproducible possibly, rule out underlying ischemia -Morbid obesity BMI 49.2 -Hypothyroid -Hyperlipidemia -Diabetes mellitus type 2 on oral hypoglycemic -Peripheral neuropathy -Headache likely from eyestrain patient is due for an eye checkup Plan: Home medications to continue. 2-D echo and a stress test as been ordered. Accu-Cheks to be followed. 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 History of Any Multi-Drug Resistant Organisms: None Reported Past Surgical History: Back Surgery, Bariatric Surgery, Cholecystectomy, Tubal Ligation Additional Past Surgical History / Comment(s): thyroidectomy, VIVIAN-EN -Y (2016), back surgery x3 Past Anesthesia/Blood Transfusion Reactions: Previous Problems w/ Anesthesia Additional Past Anesthesia/Blood Transfusion Reaction / Comment(s): Difficult intubation due to throat cancer with chemo & radiation tx. Past Psychological History: No Psychological Hx Reported Smoking Status: Former smoker Past Alcohol Use History: None Reported Additional Past Alcohol Use History / Comment(s): SMOKED FOR 26 YEARS. SMOKED 1PPD, QUIT 2013 Past Drug Use History: None Reported - Past Family History Mother Family Medical History: Hyperlipidemia, Liver Disease Additional Family Medical History / Comment(s): HEPATITIS Father Additional Family Medical History / Comment(s): manic depressive, from suicide, ulcers-half of stomach removed Medications and Allergies Home Medications Medication Instructions Recorded Confirmed Type Multivitamins, Thera [Multivitamin 1 tab PO DAILY 02/16/17 06/13/20 History (formulary)] valACYclovir [Valtrex] 500 mg PO DAILY 10/06/17 06/13/20 History Baclofen [Lioresal] 10 mg PO TID 12/31/18 06/13/20 History Atorvastatin [Lipitor] 20 mg PO HS 06/13/20 06/13/20 History Glimepiride [Amaryl] 1 mg PO AC-BRKFST 06/13/20 06/13/20 History HYDROcodone/APAP 10-325MG [[place] 1 tab PO TID 06/13/20 06/13/20 History 10-325] Levothyroxine Sodium [Synthroid] 250 mcg PO DAILY 06/13/20 06/13/20 History Metoclopramide [Reglan] 10 mg PO TID PRN 06/13/20 06/13/20 History Pregabalin [Lyrica] 200 mg PO BID 06/13/20 06/13/20 History Allergies Allergy/AdvReac Type Severity Reaction Status Date / Time shellfish derived AdvReac Unknown Nausea & Verified 06/13/20 15:05 Vomiting & Diarrhea Iodinated Contrast Media AdvReac KIDNEY Verified 06/13/20 15:05 [Iodinated Contrast Media - DISEASE, Oral and] shell fish allergy Physical Exam Vitals: Vital Signs Temp Pulse Pulse Resp BP BP Pulse Ox 06/14/20 09:00 62 16 06/14/20 07:52 97.3 F L 62 16 110/71 94 L 06/14/20 03:00 98.1 F 66 18 112/70 93 L 06/13/20 21:02 97.9 F 58 L 18 113/48 96 06/13/20 21:00 58 L 18 96 06/13/20 20:22 58 L 16 141/80 98 06/13/20 18:02 97.7 F 66 16 139/75 96 06/13/20 15:46 54 L 16 124/79 95 06/13/20 13:55 98.0 F 63 20 136/83 98 Intake and Output 06/13/20 06/14/20 06/14/20 22:59 06:59 14:59 Other: Voiding Method Toilet Toilet Toilet # Voids 1 1 Weight 138.346 kg Results CBC & Chem 7: 06/13/20 15:24 06/13/20 15:24 Labs: Abnormal Lab Results - Last 24 Hours (Table) 06/13/20 06/13/20 06/13/20 Range/Units 15:24 15:24 15:24 RDW 16.5 H (11.5-15.5) % D-Dimer 1.25 H (<0.60) mg/L FEU BUN 22 H (7-17) mg/dL Creatinine 1.16 H (0.52-1.04) mg/dL Glucose 117 H (74-99) mg/dL AST 37 H (14-36) U/L Triglycerides (<150) mg/dL 06/13/20 Range/Units 15:24 RDW (11.5-15.5) % D-Dimer (<0.60) mg/L FEU BUN (7-17) mg/dL Creatinine (0.52-1.04) mg/dL Glucose (74-99) mg/dL AST (14-36) U/L Triglycerides 161 H (<150) mg/dL
--- NOTE | 2020-06-14 22:46 | P.DS ---
Providers Date of admission: 06/13/20 17:33 Expected date of discharge: 06/14/20 Attending physician: Nabor Caraballo Consults: 06/14/20 06:30 Consult Physician Routine Consulting Provider: Mallory Malik Consult Reason/Comments: Chest pain Do you want consulting provider notified?: Yes, Notify in am Primary care physician: Arun Zamora MD Hospital Course: Chief Complaint: Chest pain History of presenting complaint: This is a 50-year-old patient was chronic stable medical conditions include diabetes with this, chronic kidney disease stage III, peripheral neuropathy, chronic low back pain, history of throat cancer that was treated with radiation and chemo in 2012, sleep apnea patient does not use a CPAP anymore. Patient had a slight headache for about 2 weeks for last 2 days that chest pain or pressure. Some dizziness. No perspiration or lightheadedness. No fever no chills. Patient also awaiting a eye checkup. With some eyestrain. Admitted for the same. Troponins were negative. Dobutamine stress echocardiogram was negative. VQ scan low probably for PE. Cleared by cardiology. Patient told to have her eye checkup done. Consultation: Dr. Tomas from cardiology Physical examination: VITAL SIGNS: 97.3, 62, 16, 110/71, 94% on room air GENERAL: [BMI 49.2, sitting up, awake. EYES: Pupils equal. Conjunctiva normal. HEENT: External appearance of nose and ears normal, oral cavity grossly normal. NECK: JVD not raised; masses not palpable. HEART: First and second heart sounds are normal; no edema. LUNGS: Respiratory rate normal; clear to auscultation. ABDOMEN: Soft, nontender, liver spleen not palpable, no masses palpable. PSYCH: Alert and oriented x3; mood and affect normal. INVESTIGATIONS, reviewed in the clinical context: White count 4.6 hemoglobin 12.5 platelets 226 potassium 4.9 creatinine 1.16 Troponin I 3 negative LDL 86 EKG tracing personally reviewed by me-sinus rhythm with some flipped T waves in inferior leads Chest x-ray film personally reviewed by me-cardiomegaly, possibly chronic changes, rods in the spine Venous Doppler-negative for DVT VQ scan-low probably for PE Assessment: -Anterior chest wall pain reproducible possibly, possibly muscular skeletal -Morbid obesity BMI 49.2 -Hypothyroid -Hyperlipidemia -Diabetes mellitus type 2 on oral hypoglycemic -Peripheral neuropathy -Headache likely from eyestrain patient is due for an eye checkup Disposition: Home Patient Condition at Discharge: Stable Plan - Discharge Summary New Discharge Prescriptions: Continue Multivitamins, Thera [Multivitamin (formulary)] 1 tab PO DAILY valACYclovir [Valtrex] 500 mg PO DAILY Baclofen [Lioresal] 10 mg PO TID Atorvastatin [Lipitor] 20 mg PO HS Glimepiride [Amaryl] 1 mg PO AC-BRKFST HYDROcodone/APAP 10-325MG [[place] 10-325] 1 tab PO TID Levothyroxine Sodium [Synthroid] 250 mcg PO DAILY Metoclopramide [Reglan] 10 mg PO TID PRN PRN Reason: Nausea Pregabalin [Lyrica] 200 mg PO BID Discharge Medication List Multivitamins, Thera [Multivitamin (formulary)] 1 tab PO DAILY 02/16/17 [History] valACYclovir [Valtrex] 500 mg PO DAILY 10/06/17 [History] Baclofen [Lioresal] 10 mg PO TID 12/31/18 [History] Atorvastatin [Lipitor] 20 mg PO HS 06/13/20 [History] Glimepiride [Amaryl] 1 mg PO AC-BRKFST 06/13/20 [History] HYDROcodone/APAP 10-325MG [[place] 10-325] 1 tab PO TID 06/13/20 [History] Levothyroxine Sodium [Synthroid] 250 mcg PO DAILY 06/13/20 [History] Metoclopramide [Reglan] 10 mg PO TID PRN 06/13/20 [History] Pregabalin [Lyrica] 200 mg PO BID 06/13/20 [History] Follow up Appointment(s)/Referral(s): Arun Zamora MD [Primary Care Provider] - 06/15/20 (video chat/ will call in am with time) Patient Instructions/Handouts: Chest Pain (GEN), Acute Headache (GEN) Discharge Disposition: HOME SELF-CARE
== END 2020-06-14 15:25 | disposition home or self-care (01) ==
LOC: EC 13:53 → 3NCARDOBS 17:33
PROVIDERS: ADMIT Hospitalist; ATTEND Hospitalist
DX: R07.89 Other chest pain (principal); R51 Headache; R79.89 Other specified abnormal findings of blood chemistry; N18.3 Chronic kidney disease, stage 3 (moderate); E11.22 Type 2 diabetes mellitus with diabetic chronic kidney disease; E11.42 Type 2 diabetes mellitus with diabetic polyneuropathy; E66.01 Morbid (severe) obesity due to excess calories; Z68.42 Body mass index [BMI] 45.0-49.9, adult; E89.0 Postprocedural hypothyroidism; E78.5 Hyperlipidemia, unspecified; J34.89 Other specified disorders of nose and nasal sinuses; G47.30 Sleep apnea, unspecified; R00.1 Bradycardia, unspecified; R42 Dizziness and giddiness; G89.29 Other chronic pain; M54.5 Low back pain; I51.7 Cardiomegaly; Z99.89 Dependence on other enabling machines and devices; Z79.891 Long term (current) use of opiate analgesic; Z79.84 Long term (current) use of oral hypoglycemic drugs; Z79.890 Hormone replacement therapy; Z79.899 Other long term (current) drug therapy; Z91.041 Radiographic dye allergy status; Z91.013 Allergy to seafood; Z85.819 Personal history of malignant neoplasm of unspecified site of lip, oral cavity, and pharynx; Z98.84 Bariatric surgery status; Z90.49 Acquired absence of other specified parts of digestive tract; Z98.51 Tubal ligation status; Z92.3 Personal history of irradiation; Z92.21 Personal history of antineoplastic chemotherapy; Z87.891 Personal history of nicotine dependence; Z83.49 Family history of other endocrine, nutritional and metabolic diseases; Z83.1 Family history of other infectious and parasitic diseases
CPT/HCPCS: 93005 ×2; 99285; 36415; 93306; 85379; 83880; 80061; 80053; 83735; 84484; 85025; 85610; 85730; 71046; 93970; 78582; G0378 ×2; C8930; A9540; A9567; J1250; 93351

== ENCOUNTER 2020-08-11 13:11 | Inpatient (IN) | payer MEDICARE, OTHER ==
[2020-08-11] MEDS ORDERED: ACETAMINOPHEN TAB 500 MG TAB PO STA (13:34)
--- NOTE | 2020-08-11 13:37 | ED ---
General Adult HPI - General Chief complaint: Shortness of Breath Stated complaint: shortness of breath Time Seen by Provider: 08/11/20 13:23 Source: patient, RN notes reviewed Mode of arrival: wheelchair Limitations: physical limitation - History of Present Illness Initial comments: Patient is a pleasant 80-year-old female presenting to the emergency Department with complaints of fever. Onset of symptoms was this morning after she woke. Patient feels fatigued and generally weakwith fever and chills and malaise. Patient does havemild cough with some occasional sputum however she swallows the sputum and has not seen color. Patient states there may be minimal social shortness of breath. No history of similar symptoms previously. Patient is a former smoker. No leg pain or leg swelling. - Related Data Home Medications Medication Instructions Recorded Confirmed Multivitamins, Thera [Multivitamin 1 tab PO DAILY 02/16/17 06/13/20 (formulary)] valACYclovir [Valtrex] 500 mg PO DAILY 10/06/17 06/13/20 Baclofen [Lioresal] 10 mg PO TID 12/31/18 06/13/20 Atorvastatin [Lipitor] 20 mg PO HS 06/13/20 06/13/20 Glimepiride [Amaryl] 1 mg PO AC-BRKFST 06/13/20 06/13/20 HYDROcodone/APAP 10-325MG [[place] 1 tab PO TID 06/13/20 06/13/20 10-325] Levothyroxine Sodium [Synthroid] 250 mcg PO DAILY 06/13/20 06/13/20 Metoclopramide [Reglan] 10 mg PO TID PRN 06/13/20 06/13/20 Pregabalin [Lyrica] 200 mg PO BID 06/13/20 06/13/20 Allergies Allergy/AdvReac Type Severity Reaction Status Date / Time shellfish derived AdvReac Unknown Nausea & Verified 08/11/20 13:21 Vomiting & Diarrhea Iodinated Contrast Media AdvReac KIDNEY Verified 08/11/20 13:21 [Iodinated Contrast Media - DISEASE, Oral and] shell fish allergy Review of Systems ROS Statement: Those systems with pertinent positive or pertinent negative responses have been documented in the HPI. ROS Other: All systems not noted in ROS Statement are negative. Constitutional: Reports: fever, chills, weakness Eyes: Denies: eye pain ENT: Denies: ear pain Respiratory: Reports: as per HPI, cough Cardiovascular: Denies: chest pain Endocrine: Reports: fatigue Gastrointestinal: Denies: abdominal pain Genitourinary: Denies: dysuria Musculoskeletal: Denies: back pain Skin: Denies: rash Neurological: Denies: headache Past Medical History Past Medical History: Cancer, Diabetes Mellitus, Renal Disease, Sleep Apnea/CPAP/BIPAP Additional Past Medical History / Comment(s): throat cancer (UVULA) w/ radiation and chemo(2012), difficult intubation, degenerative disc disease ,stenosis , chronic back pain (surgery scheduled Nov 2017), Recieves steroid injections for back pain, neuropathy in hands, Type 3 kidney disease. History of Any Multi-Drug Resistant Organisms: None Reported Past Surgical History: Back Surgery, Bariatric Surgery, Cholecystectomy, Tubal Ligation Additional Past Surgical History / Comment(s): thyroidectomy, VIVIAN-EN -Y (2016), back surgery x3 Past Anesthesia/Blood Transfusion Reactions: Previous Problems w/ Anesthesia Additional Past Anesthesia/Blood Transfusion Reaction / Comment(s): Difficult intubation due to throat cancer with chemo & radiation tx. Past Psychological History: No Psychological Hx Reported Smoking Status: Former smoker Past Alcohol Use History: None Reported Past Drug Use History: None Reported - Past Family History Mother Family Medical History: Hyperlipidemia, Liver Disease Additional Family Medical History / Comment(s): HEPATITIS Father Additional Family Medical History / Comment(s): manic depressive, from suicide, ulcers-half of stomach removed General Exam Limitations: no limitations General appearance: alert, in no apparent distress Head exam: Present: normocephalic Eye exam: Present: normal appearance Neck exam: Present: normal inspection Respiratory exam: Present: rhonchi Cardiovascular Exam: Present: tachycardia GI/Abdominal exam: Present: soft. Absent: tenderness Extremities exam: Present: normal inspection. Absent: pedal edema, calf tenderness Neurological exam: Present: alert Psychiatric exam: Present: normal affect, normal mood Skin exam: Present: normal color Course Vital Signs 08/11/20 13:16 Temperature 102.8 F H Pulse Rate 117 H Respiratory 18 Rate Blood Pressure 177/81 O2 Sat by Pulse 91 L Oximetry - Reevaluation(s) Reevaluation #1: 08/11/20 15:06 patient does meet sepsis criteria diagnosed at 1500. Blood culture and lactic acid have been ordered. IV antibiotics will be ordered. EKG Findings - EKG Comments: EKG Findings:: sinus tachycardia 107. OR 156. QRS 88. QT 336. QTc 448. Left axis. Low QRS voltage. No acute ST change. Medical Decision Making - Medical Decision Making patient reevaluated. Patient updated on results and plan. Case discussed with Dr. Kulkarni, who will admit covering for [facility], covering for Dr. Caraballo, who admits for Dr. zamora - Lab Data Result diagrams: 08/11/20 14:03 08/11/20 14:03 Lab Results 08/11/20 08/11/20 08/11/20 Range/Units 14:03 14:03 14:03 WBC 5.6 (3.8-10.6) k/uL RBC 4.86 (3.80-5.40) m/uL Hgb 13.1 (11.4-16.0) gm/dL Hct 42.0 (34.0-46.0) % MCV 86.5 (80.0-100.0) fL MCH 26.9 (25.0-35.0) pg MCHC 31.1 (31.0-37.0) g/dL RDW 16.5 H (11.5-15.5) % Plt Count 205 (150-450) k/uL Neutrophils % 88 % Lymphocytes % 8 % Monocytes % 2 % Eosinophils % 1 % Basophils % 0 % Neutrophils # 4.9 (1.3-7.7) k/uL Lymphocytes # 0.5 L (1.0-4.8) k/uL Monocytes # 0.1 (0-1.0) k/uL Eosinophils # 0.1 (0-0.7) k/uL Basophils # 0.0 (0-0.2) k/uL Anisocytosis Slight PT 9.5 (9.0-12.0) sec INR 0.9 (<1.2) APTT 22.3 (22.0-30.0) sec Sodium 139 (137-145) mmol/L Potassium 4.6 (3.5-5.1) mmol/L Chloride 105 (98-107) mmol/L Carbon Dioxide 25 (22-30) mmol/L Anion Gap 9 mmol/L BUN 22 H (7-17) mg/dL Creatinine 1.32 H (0.52-1.04) mg/dL Est GFR (CKD-EPI)AfAm 54 (>60 ml/min/1.73 sqM) Est GFR (CKD-EPI)NonAf 47 (>60 ml/min/1.73 sqM) Glucose 154 H (74-99) mg/dL Plasma Lactic Acid Gabe (0.7-2.0) mmol/L Calcium 8.5 (8.4-10.2) mg/dL Total Bilirubin 0.6 (0.2-1.3) mg/dL AST 31 (14-36) U/L ALT 25 (4-34) U/L Alkaline Phosphatase 126 (38-126) U/L Total Protein 6.7 (6.3-8.2) g/dL Albumin 3.8 (3.5-5.0) g/dL 08/11/20 Range/Units 14:03 WBC (3.8-10.6) k/uL RBC (3.80-5.40) m/uL Hgb (11.4-16.0) gm/dL Hct (34.0-46.0) % MCV (80.0-100.0) fL MCH (25.0-35.0) pg MCHC (31.0-37.0) g/dL RDW (11.5-15.5) % Plt Count (150-450) k/uL Neutrophils % % Lymphocytes % % Monocytes % % Eosinophils % % Basophils % % Neutrophils # (1.3-7.7) k/uL Lymphocytes # (1.0-4.8) k/uL Monocytes # (0-1.0) k/uL Eosinophils # (0-0.7) k/uL Basophils # (0-0.2) k/uL Anisocytosis PT (9.0-12.0) sec INR (<1.2) APTT (22.0-30.0) sec Sodium (137-145) mmol/L Potassium (3.5-5.1) mmol/L Chloride (98-107) mmol/L Carbon Dioxide (22-30) mmol/L Anion Gap mmol/L BUN (7-17) mg/dL Creatinine (0.52-1.04) mg/dL Est GFR (CKD-EPI)AfAm (>60 ml/min/1.73 sqM) Est GFR (CKD-EPI)NonAf (>60 ml/min/1.73 sqM) Glucose (74-99) mg/dL Plasma Lactic Acid Gabe 2.1 H* (0.7-2.0) mmol/L Calcium (8.4-10.2) mg/dL Total Bilirubin (0.2-1.3) mg/dL AST (14-36) U/L ALT (4-34) U/L Alkaline Phosphatase (38-126) U/L Total Protein (6.3-8.2) g/dL Albumin (3.5-5.0) g/dL - Radiology Data Interpreted by me: Chest x-ray suspicious for left lower lobe infiltrate Critical Care Time Critical Care Time: Yes Total Critical Care Time: 32 Disposition Clinical Impression: Pneumonia, Sepsis Disposition: ADMITTED IP TO THIS HOSP Is patient prescribed a controlled substance at d/c from ED?: No Referrals: Arun Zamora MD [Primary Care Provider] - 1-2 days Decision Time: 15:06
[2020-08-11] MEDS: SODIUM CHLORIDE 0.9% 1,000 ML IV SCH ×2 (14:06→20:50)
[2020-08-11] MEDS: IBUPROFEN 600 MG TAB PO STA ×2 (14:06→14:07)
[2020-08-11 14:37] LABS: Albumin 3.8 g/dL (3.5-5.0); Calcium 8.5 mg/dL (8.4-10.2); Potassium 4.6 mmol/L (3.5-5.1); Total Bilirubin 0.6 mg/dL (0.2-1.3); Total Protein 6.7 g/dL (6.3-8.2)
[2020-08-11 14:39] LABS: INR 0.9 (<1.2); Partial Thromboplastin Time 22.3 sec (22.0-30.0); Prothrombin Time 9.5 sec (9.0-12.0)
[2020-08-11 14:47] LABS: Anisocytosis Slight; Basophils % (A) 0 %; Eosinophils # (A) 0.1 k/uL (0-0.7); Eosinophils % (A) 1 %; HGB 13.1 gm/dL (11.4-16.0); Lymphocytes # (A) 0.5 k/uL (1.0-4.8); Lymphocytes % (A) 8 %; MCH 26.9 pg (25.0-35.0); MCHC 31.1 g/dL (31.0-37.0); MCV 86.5 fL (80.0-100.0); Mean Platelet Volume 7.7; Monocytes # (A) 0.1 k/uL (0-1.0); Monocytes % (A) 2 %; Neutrophils # (A) 4.9 k/uL (1.3-7.7); Neutrophils % (A) 88 %; Platelet Count 205 k/uL (150-450); RBC 4.86 m/uL (3.80-5.40); RDW 16.5 % (11.5-15.5); WBC 5.6 k/uL (3.8-10.6)
[2020-08-11] MEDS ORDERED: IPRATROPIUM-ALBUTEROL 3 ML NEB INHALATION PRN (15:06)
[2020-08-11] MEDS ORDERED: AZITHROMYCIN 500 MG in SODIUM CHLORIDE 0.9% 250 ML IVPB STA (15:06)
[2020-08-11] MEDS ORDERED: PNEUMONIA PROTOCOL UTILIZED 1 EACH MISC PO PRN (15:06)
--- NOTE | 2020-08-11 15:14 | XR ---
EXAMINATION TYPE: XR chest 2V DATE OF EXAM: 08/11/2020 COMPARISON: 06/13/2020 HISTORY: Fever TECHNIQUE: FINDINGS: There is some patchy infiltrate left lower lobe. Right lung is clear. Heart size is normal. There are paraspinal rods and screws stabilizing the thoracolumbar junction. Pulmonary vascularity i s normal. IMPRESSION: There is new left lower lobe pneumonia compared to old exam. Normal heart. There is proba miah some mild bilateral bronchial adenopathy increased compared to old exam.
[2020-08-11 16:38] LABS: Glucose,Whole Blood 131 mg/dL (75-99)
[2020-08-11] MEDS ORDERED: ACETAMINOPHEN TAB 325 MG TAB PO PRN (17:29)
[2020-08-11] MEDS ORDERED: ONDANSETRON 4 MG/2 ML VIAL IVP PRN (17:29)
[2020-08-11] MEDS ORDERED: methocarbamoL 750 MG TAB PO PRN (17:30)
[2020-08-11 17:32] LABS: C Reactive Protein 13.4 mg/L (<10.0)
--- NOTE | 2020-08-11 17:35 | P.HPIM ---
History of Present Illness H&P Date: 08/11/20 Chief Complaint: Fever This is a 50-year-old female with past medical history noted below who presented to the emergency room with fever and cough. Patient said that her symptoms started days ago and stenting getting progressively worse. She said that her cough is productive of greenish sputum. She is having some shortness of breath and pain with deep breath. She reports feeling tired and weak. She denies any recent sick contact. She does wear a mask in public. No other complaints otherwise. She denies chest pain. She is a former smoker and quit 7 years ago. Patient was evaluated in the ER and currently admitted to the hospital for further management of her medical problems noted below. Review of Systems Review of system: 14 points review of systems were obtained and were negative except to what were mentioned in the HPI. Past Medical History Past Medical History: Cancer, Diabetes Mellitus, Renal Disease, Sleep Apnea/CPAP/BIPAP Additional Past Medical History / Comment(s): throat cancer (UVULA) w/ radiation and chemo(2012), difficult intubation, degenerative disc disease , SPINAL stenosis , chronic back pain, Recieves steroid injections for back pain, ne uropathy in hands, STAGE 3 kidney disease. History of Any Multi-Drug Resistant Organisms: None Reported Past Surgical History: Back Surgery, Bariatric Surgery, Cholecystectomy, Tubal Ligation Additional Past Surgical History / Comment(s): thyroidectomy, VIVIAN-EN -Y (2016), back surgery x3-LEFT LEG WEAKNESS SINCE LAST BACK SURGERY Past Anesthesia/Blood Transfusion Reactions: Previous Problems w/ Anesthesia Additional Past Anesthesia/Blood Transfusion Reaction / Comment(s): Difficult intubation due to throat cancer with chemo & radiation tx. Past Psychological History: No Psychological Hx Reported Smoking Status: Former smoker Past Alcohol Use History: None Reported Additional Past Alcohol Use History / Comment(s): SMOKED FOR 26 YEARS. SMOKED 1PPD, QUIT 2013 Past Drug Use History: None Reported - Past Family History Mother Family Medical History: Hyperlipidemia, Liver Disease Additional Family Medical History / Comment(s): HEPATITIS Father Additional Family Medical History / Comment(s): manic depressive, from suicide, ulcers-half of stomach removed Medications and Allergies Home Medications Medication Instructions Recorded Confirmed Type Multivitamins, Thera [Multivitamin 1 tab PO DAILY 02/16/17 08/11/20 History (formulary)] valACYclovir [Valtrex] 500 mg PO DAILY 12/19/17 10/24/20 History Atorvastatin [Lipitor] 20 mg PO HS 06/13/20 08/11/20 History Glimepiride [Amaryl] 1 mg PO AC-BRKFST 06/13/20 08/11/20 History HYDROcodone/APAP 10-325MG [[place] 1 tab PO TID 06/13/20 08/11/20 History 10-325] Levothyroxine Sodium [Synthroid] 250 mcg PO DAILY 06/13/20 08/11/20 History Pregabalin [Lyrica] 200 mg PO TID 06/13/20 08/11/20 History Methocarbamol [Robaxin-750] 750 mg PO TID 08/11/20 08/11/20 History Allergies Allergy/AdvReac Type Severity Reaction Status Date / Time shellfish derived AdvReac Unknown Nausea & Verified 08/11/20 13:21 Vomiting & Diarrhea Iodinated Contrast Media AdvReac KIDNEY Verified 08/11/20 13:21 [Iodinated Contrast Media - DISEASE, Oral and] shell fish allergy Physical Exam Vitals: Vital Signs Temp Pulse Resp BP Pulse Ox 08/11/20 15:39 102.3 F H 08/11/20 15:30 101 H 21 121/75 92 L 08/11/20 13:16 102.8 F H 117 H 18 177/81 91 L Intake and Output 08/11/20 08/11/20 08/11/20 06:59 14:59 22:59 Other: Weight 138.346 kg 138.346 kg General: The patient is awake and alert, in no distress Eye: there is normal conjunctiva bilaterally. Neck: The neck is supple, there is no JVD. Cardiovascular: Normal S1-S2, no S3-S4, no murmurs. Respiratory: Lungs clear to auscultation bilaterally Gastrointestinal: Abdomen is soft, nontender Musculoskeletal: There is no pedal edema. Neurological:. Speech is normal. Skin: Skin is warm and dry Results CBC & Chem 7: 08/11/20 14:03 08/11/20 14:03 Labs: Abnormal Lab Results - Last 24 Hours (Table) 08/11/20 08/11/20 08/11/20 Range/Units 14:03 14:03 14:03 RDW 16.5 H (11.5-15.5) % Lymphocytes # 0.5 L (1.0-4.8) k/uL BUN 22 H (7-17) mg/dL Creatinine 1.32 H (0.52-1.04) mg/dL Glucose 154 H (74-99) mg/dL POC Glucose (mg/dL) (75-99) mg/dL Plasma Lactic Acid Gabe 2.1 H* (0.7-2.0) mmol/L 08/11/20 Range/Units 16:36 RDW (11.5-15.5) % Lymphocytes # (1.0-4.8) k/uL BUN (7-17) mg/dL Creatinine (0.52-1.04) mg/dL Glucose (74-99) mg/dL POC Glucose (mg/dL) 131 H (75-99) mg/dL Plasma Lactic Acid Gabe (0.7-2.0) mmol/L Thrombosis Risk Factor Assmnt - Choose All That Apply Each Factor Represents 1 point: Age 41-60 years, Obesity (BMI >25), Sepsis (< 1month), Serious lung disease incl. pneumonia (< 1month) Thrombosis Risk Factor Assessment Total Risk Factor Score: 4 Thrombosis Risk Factor Assessment Level: Moderate Risk Assessment and Plan Assessment: 1. Community-acquired pneumonia of the left lower lobe: Started on IV c eftriaxone and oral azithromycin. Sputum culture ordered. Pro-calcitonin pending 2. Severe sepsis without septic shock, continue aggressive IV fluid hydration with normal saline at 130 mL per hour. Antibiotic as above. Blood culture pending. COVID-19 and influenza screen ordered 3. Acute kidney injury, mild creatinine elevation. IV fluid hydration as above 4. Type 2 diabetes: Hold glyburide and continue sliding scale insulin 5. DVT prophylaxis with subcu heparin 6. Other chronic medical problems include hypothyroidism and hyperlipidemia, continue home medications The patient is admitted with an anticipated greater than 2 midnight stay for evaluation of the medical problems noted above Discussed with: Patient and nursing staff Anticipated discharge date: To be determined based on clinical course Anticipated discharge place: home A total of 45 minutes was spent on the care of this complex patient more than 50% of the time was spent in counseling and care coordination.
[2020-08-11] MEDS: INSULIN ASPART (NovoLOG) 100 UNIT/ML VIAL SQ SCH ×2 (17:36→20:57)
[2020-08-11] MEDS ORDERED: SODIUM CHLORIDE 0.9% 500 ML 500 ML IV ONE (17:49)
[2020-08-11 17:58] LABS: Appearance,Urine Clear (Clear); Bilirubin,Urine Negative (Negative); Blood,Urine Negative (Negative); Color,Urine Light Yellow; Glucose,Urine (UA) Negative (Negative); Ketones,Urine Negative (Negative); Leukocyte Esterase,Urine Negative (Negative); Nitrite,Urine Negative (Negative); PH, Urine 5.5 (5.0-8.0); Protein,Urine Negative (Negative); Specific Gravity,Urine 1.012 (1.001-1.035); Urobilinogen,Urine <2.0 mg/dL (<2.0)
[2020-08-11] MEDS: HYDROcodone/APAP 10-325MG 1 EACH TAB PO PRN (17:59)
[2020-08-11] MEDS: PREGABALIN 100 MG CAP PO SCH (20:47)
[2020-08-11 20:49] LABS: Glucose,Whole Blood 175 mg/dL (75-99)
[2020-08-11] MEDS: guaiFENesin 600 MG TABLET.ER PO SCH (20:49)
[2020-08-11] MEDS: HEPARIN SODIUM,PORCINE 5,000 UNIT/ML 1 ML VIAL SQ SCH (20:49)
[2020-08-11] MEDS: ATORVASTATIN 20 MG TAB PO SCH (20:49)
[2020-08-11 22:57] LABS: Ferritin 27.2 ng/mL (10.0-291.0)
[2020-08-12] MEDS: HYDROcodone/APAP 10-325MG 1 EACH TAB PO PRN ×3 (02:05→21:31)
[2020-08-12] MEDS: LEVOTHYROXINE 125 MCG TAB PO SCH (05:58)
[2020-08-12 05:59] LABS: Anisocytosis Slight; Basophils % (A) 0 %; Eosinophils # (A) 0.2 k/uL (0-0.7); Eosinophils % (A) 2 %; HCT 36.2 % (34.0-46.0); HGB 11.5 gm/dL (11.4-16.0); Lymphocytes % (A) 9 %; MCH 27.7 pg (25.0-35.0); MCHC 31.9 g/dL (31.0-37.0); Mean Platelet Volume 7.8; Monocytes # (A) 0.4 k/uL (0-1.0); Monocytes % (A) 4 %; Neutrophils # (A) 8.7 k/uL (1.3-7.7); Neutrophils % (A) 84 %; Platelet Count 194 k/uL (150-450); RBC 4.16 m/uL (3.80-5.40); RDW 16.4 % (11.5-15.5); WBC 10.4 k/uL (3.8-10.6)
[2020-08-12] MEDS: SODIUM CHLORIDE 0.9% 1,000 ML IV SCH (06:06)
[2020-08-12 07:07] LABS: Glucose,Whole Blood 99 mg/dL (75-99)
[2020-08-12] MEDS: INSULIN ASPART (NovoLOG) 100 UNIT/ML VIAL SQ SCH ×4 (07:13→21:33)
--- NOTE | 2020-08-12 07:34 | XR ---
EXAMINATION TYPE: XR chest 1V DATE OF EXAM: 08/12/2020 CLINICAL HISTORY: Difficulty breathing and pneumonia progress study. TECHNIQUE: Single AP portable upright view of the chest is obtained. COMPARISON: Chest x-ray from one day earlier and older studies. CT chest April 02, 2020. FINDINGS: Background chronic parenchymal change with persistent left basilar opacity. Right lung rem ains clear. There is new mild cardiomegaly. Postsurgical change to the lower thoracic spine is partia lly imaged. Bilateral hilar prominence redemonstrated. IMPRESSION: New mild cardiomegaly. Background chronic parenchymal change and bilateral hilar adenopat hy on most recent CT. Persistent left basilar acute infiltrate and/or atelectasis. No significant virgie nge from most recent x-ray.
[2020-08-12 07:46] VITALS: RESP 18
[2020-08-12] MEDS: HEPARIN SODIUM,PORCINE 5,000 UNIT/ML 1 ML VIAL SQ SCH ×2 (08:44→21:33)
[2020-08-12] MEDS: guaiFENesin 600 MG TABLET.ER PO SCH ×2 (08:44→21:32)
[2020-08-12] MEDS: MULTIVITAMINS, THERA 1 EACH TAB PO SCH (08:44)
[2020-08-12] MEDS: PREGABALIN 100 MG CAP PO SCH ×3 (08:45→21:31)
[2020-08-12] MEDS: valACYclovir 500 MG TAB PO SCH (08:45)
[2020-08-12 09:51] LABS: African American GFR (CKD) 60.6 (60.0-200.0); Anion Gap 5.3 mmol/L (4.00-12.00); BUN/Creat Ratio 18.33 Ratio (12.00-20.00); Calcium 7.9 mg/dL (8.7-10.3); Carbon Dioxide 25.7 mmol/L (21.6-31.8); Non-African American GFR(CKD) 52.3 (60.0-200.0); Potassium 4.5 mmol/L (3.5-5.5)
[2020-08-12] MEDS: AZITHROMYCIN 500 MG TAB PO SCH (12:12)
[2020-08-12 12:16] LABS: Glucose,Whole Blood 111 mg/dL (75-99)
--- NOTE | 2020-08-12 12:19 | NM ---
EXAMINATION TYPE: NM pul vent and perfuse DATE OF EXAM: 08/12/2020 COMPARISON: Prior VQ scan June 13, 2020. Chest x-ray earlier today. HISTORY: Shortness of breath rule out pulmonary embolism. TECHNIQUE: Utilizing inhalation of 66.0 mCi Tc 99m DTPA aerosol and intravenous injection of 5.6 mCi of Tc 99m MAA, ventilation and perfusion images are acquired post injection in multiple projections. FINDINGS: Normal radiotracer distribution is noted in the lungs. There is no evidence of mismatched defects. IMPRESSION: Low scintigraphic evidence for acute pulmonary embolism.
--- NOTE | 2020-08-12 13:46 | P.PN ---
Subjective Progress Note Date: 08/12/20 Patient is still complaining of pain and discomfort with deep breath. She states short of breath requiring 2 L of oxygen. I asked her nurse to take her off of the oxygen this morning and her O2 sat remained greater than 92%. Objective - Vital Signs Vital signs: Vital Signs Temp 99.3 F 08/12/20 07:00 Pulse 76 08/12/20 07:00 Resp 18 08/12/20 07:00 BP 102/69 08/12/20 07:00 Pulse Ox 92 L 08/12/20 07:00 Intake & Output 08/11/20 08/12/20 08/12/20 18:59 06:59 18:59 Intake Total 870 Balance 870 Weight 138.346 kg Intake: Intake, IV Titration 570 Amount Sodium Chloride 0.9% 1, 520 000 ml @ 130 mls/hr IV . Q7H42M DEISY Rx#:[id number] cefTRIAXone 2 gm In 50 Sodium Chloride 0.9% 50 ml @ 100 mls/hr IVPB Q24H DEISY Rx#:[id number] Oral 300 Other: # Voids 1 - Exam General: The patient is awake and alert, in no distress Eye: there is normal conjunctiva bilaterally. Neck: The neck is supple, there is no JVD. Cardiovascular: Normal S1-S2, no S3-S4, no murmurs. Respiratory: Lungs clear to auscultation bilaterally Gastrointestinal: Abdomen is soft, nontender Musculoskeletal: There is no pedal edema. Neurological:. Speech is normal. Skin: Skin is warm and dry - Labs CBC & Chem 7: 08/12/20 05:34 08/12/20 05:34 Labs: Abnormal Lab Results - Last 24 Hours (Table) 08/11/20 08/11/20 08/11/20 Range/Units 14:03 14:03 14:03 RDW 16.5 H (11.5-15.5) % Neutrophils # (1.3-7.7) k/uL Lymphocytes # 0.5 L (1.0-4.8) k/uL D-Dimer (<0.60) mg/L FEU Chloride (96-109) mmol/L BUN 22 H (7-17) mg/dL Creatinine 1.32 H (0.52-1.04) mg/dL Est GFR (CKD-EPI)NonAf (60.0-200.0) Glucose 154 H (74-99) mg/dL POC Glucose (mg/dL) (75-99) mg/dL Plasma Lactic Acid Gabe 2.1 H* (0.7-2.0) mmol/L Calcium (8.7-10.3) mg/dL C-Reactive Protein (<10.0) mg/L Procalcitonin (0.02-0.09) ng/mL 08/11/20 08/11/20 08/11/20 Range/Units 16:36 16:57 16:57 RDW (11.5-15.5) % Neutrophils # (1.3-7.7) k/uL Lymphocytes # (1.0-4.8) k/uL D-Dimer 1.45 H (<0.60) mg/L FEU Chloride (96-109) mmol/L BUN (7-17) mg/dL Creatinine (0.52-1.04) mg/dL Est GFR (CKD-EPI)NonAf (60.0-200.0) Glucose (74-99) mg/dL POC Glucose (mg/dL) 131 H (75-99) mg/dL Plasma Lactic Acid Gabe (0.7-2.0) mmol/L Calcium (8.7-10.3) mg/dL C-Reactive Protein 13.4 H (<10.0) mg/L Procalcitonin (0.02-0.09) ng/mL 08/11/20 08/11/20 08/11/20 Range/Units 16:57 16:57 20:48 RDW (11.5-15.5) % Neutrophils # (1.3-7.7) k/uL Lymphocytes # (1.0-4.8) k/uL D-Dimer (<0.60) mg/L FEU Chloride (96-109) mmol/L BUN (7-17) mg/dL Creatinine (0.52-1.04) mg/dL Est GFR (CKD-EPI)NonAf (60.0-200.0) Glucose (74-99) mg/dL POC Glucose (mg/dL) 175 H (75-99) mg/dL Plasma Lactic Acid Gabe 2.7 H* (0.7-2.0) mmol/L Calcium (8.7-10.3) mg/dL C-Reactive Protein (<10.0) mg/L Procalcitonin 0.73 H (0.02-0.09) ng/mL 08/12/20 08/12/20 08/12/20 Range/Units 05:34 05:34 12:03 RDW 16.4 H (11.5-15.5) % Neutrophils # 8.7 H (1.3-7.7) k/uL Lymphocytes # (1.0-4.8) k/uL D-Dimer (<0.60) mg/L FEU Chloride 111 H (96-109) mmol/L BUN (7-17) mg/dL Creatinine (0.52-1.04) mg/dL Est GFR (CKD-EPI)NonAf 52.3 L (60.0-200.0) Glucose (74-99) mg/dL POC Glucose (mg/dL) 111 H (75-99) mg/dL Plasma Lactic Acid Gabe (0.7-2.0) mmol/L Calcium 7.9 L (8.7-10.3) mg/dL C-Reactive Protein (<10.0) mg/L Procalcitonin (0.02-0.09) ng/mL Assessment and Plan Assessment: This is a 50-year-old female who presented to the emergency room with worsening cough and fever. Patient was evaluated in the ER and currently admitted to the hospital for further management of her medical problems noted below. 1. Community-acquired pneumonia of the left lower lobe: Started on IV ceftriaxone and oral azithromycin. Sputum culture ordered. Pro-calcitonin elevated 2. Severe sepsis without septic shock, improved with IV fluid hydration and antibiotic. Lactic acid back to normal.. Antibiotic as above. Blood culture negative to date. Influenza A and B negative. COVID-19 pending 3. Acute kidney injury, mild creatinine elevation. resolved with IV fluid hydration 4. Type 2 diabetes: Hold glyburide and continue sliding scale insulin 5. elevated d-dimer, VQ scan with low probability for PE. 6. DVT prophylaxis with subcu heparin 7. Other chronic medical problems include hypothyroidism, history of stage III chronic kidney disease and hyperlipidemia, continue home medications
[2020-08-12] MEDS: ALBUTEROL HFA INHALER INHALATION PRN (15:59)
[2020-08-12 16:28] LABS: Glucose,Whole Blood 137 mg/dL (75-99)
[2020-08-12 21:12] LABS: Glucose,Whole Blood 149 mg/dL (75-99)
[2020-08-12] MEDS: ATORVASTATIN 20 MG TAB PO SCH (21:31)
[2020-08-13] MEDS: HYDROcodone/APAP 10-325MG 1 EACH TAB PO PRN ×2 (06:02→15:44)
[2020-08-13] MEDS: LEVOTHYROXINE 125 MCG TAB PO SCH (06:03)
[2020-08-13 06:26] LABS: Anisocytosis Slight; Basophils % (A) 0 %; Eosinophils # (A) 0.3 k/uL (0-0.7); Eosinophils % (A) 4 %; HCT 36.6 % (34.0-46.0); HGB 11.5 gm/dL (11.4-16.0); Lymphocytes # (A) 0.9 k/uL (1.0-4.8); Lymphocytes % (A) 13 %; MCHC 31.3 g/dL (31.0-37.0); MCV 86.1 fL (80.0-100.0); Monocytes # (A) 0.3 k/uL (0-1.0); Monocytes % (A) 4 %; Neutrophils # (A) 5.6 k/uL (1.3-7.7); Neutrophils % (A) 78 %; Platelet Count 196 k/uL (150-450); RBC 4.25 m/uL (3.80-5.40); RDW 16.4 % (11.5-15.5); WBC 7.2 k/uL (3.8-10.6)
[2020-08-13 06:53] LABS: Glucose,Whole Blood 96 mg/dL (75-99)
[2020-08-13] MEDS: ALBUTEROL HFA INHALER INHALATION PRN ×2 (07:05→10:59)
[2020-08-13] MEDS: INSULIN ASPART (NovoLOG) 100 UNIT/ML VIAL SQ SCH ×2 (07:12→11:54)
[2020-08-13] MEDS: AZITHROMYCIN 500 MG TAB PO SCH (08:03)
[2020-08-13] MEDS: PREGABALIN 100 MG CAP PO SCH ×2 (08:03→15:44)
[2020-08-13] MEDS: MULTIVITAMINS, THERA 1 EACH TAB PO SCH (08:03)
[2020-08-13] MEDS: guaiFENesin 600 MG TABLET.ER PO SCH (08:03)
[2020-08-13] MEDS: valACYclovir 500 MG TAB PO SCH (08:04)
[2020-08-13] MEDS: HEPARIN SODIUM,PORCINE 5,000 UNIT/ML 1 ML VIAL SQ SCH (08:04)
[2020-08-13 11:02] LABS: Glucose,Whole Blood 121 mg/dL (75-99)
--- NOTE | 2020-08-13 12:31 | P.PN ---
Subjective Progress Note Date: 08/13/20 Patient is feeling better today. Her shortness of breath has improved. She is currently off of oxygen. She is concerned about going home without knowing her COVID-19 test results as she lives with her elderly mother. Objective - Vital Signs Vital signs: Vital Signs Temp 98.6 F 08/13/20 07:00 Pulse 65 08/13/20 07:00 Resp 18 08/13/20 07:00 BP 130/84 08/13/20 07:00 Pulse Ox 96 08/13/20 07:00 Intake & Output 08/12/20 08/13/20 08/13/20 18:59 06:59 18:59 Other: # Voids 3 - Exam General: The patient is awake and alert, in no distress Eye: there is normal conjunctiva bilaterally. Neck: The neck is supple, there is no JVD. Cardiovascular: Normal S1-S2, no S3-S4, no murmurs. Respiratory: Lungs clear to auscultation bilaterally Gastrointestinal: Abdomen is soft, nontender Musculoskeletal: There is no pedal edema. Neurological:. Speech is normal. Skin: Skin is warm and dry - Labs CBC & Chem 7: 08/13/20 05:41 08/12/20 05:34 Labs: Abnormal Lab Results - Last 24 Hours (Table) 08/12/20 08/12/20 08/13/20 Range/Units 16:27 21:10 05:41 RDW 16.4 H (11.5-15.5) % Lymphocytes # 0.9 L (1.0-4.8) k/uL POC Glucose (mg/dL) 137 H 149 H (75-99) mg/dL 08/13/20 Range/Units 11:01 RDW (11.5-15.5) % Lymphocytes # (1.0-4.8) k/uL POC Glucose (mg/dL) 121 H (75-99) mg/dL Microbiology - Last 24 Hours (Table) 08/11/20 15:25 Blood Culture - Preliminary Blood No Growth after 24 hours Assessment and Plan Assessment: This is a 50-year-old female who presented to the emergency room with worsening cough and fever. Patient was evaluated in the ER and currently admitted to the hospital for further management of her medical problems noted below. 1. Community-acquired pneumonia of the left lower lobe: Started on IV ceftriaxone and oral azithromycin. Sputum culture ordered but unable to obtain. Pro-calcitonin elevated 2. Severe sepsis without septic shock, improved with IV fluid hydration and antibiotic. Lactic acid back to normal.. Antibiotic as above. Blood culture negative to date. Influenza A and B negative. COVID-19 pending 3. Acute kidney injury, mild creatinine elevation. resolved with IV fluid hydration 4. Type 2 diabetes: Hold glyburide and continue sliding scale insulin 5. elevated d-dimer, VQ scan with low probability for PE. 6. DVT prophylaxis with subcu heparin 7. Other chronic medical problems include hypothyroidism, history of stage III chronic kidney disease and hyperlipidemia, continue home medications Awaiting COVID-19 test results. Anticipate discharge home tomorrow.
[2020-08-13 13:23] LABS: African American GFR (CKD) 67.3 (60.0-200.0); Anion Gap 7.5 mmol/L (4.00-12.00); BUN/Creat Ratio 19.09 Ratio (12.00-20.00); Calcium 8.5 mg/dL (8.7-10.3); Carbon Dioxide 26.5 mmol/L (21.6-31.8); Non-African American GFR(CKD) 58.1 (60.0-200.0); Potassium 4.1 mmol/L (3.5-5.5)
[2020-08-13 14:03] VITALS: BP 126/79; PULSE 71; TEMP 98.8
--- NOTE | 2020-08-13 16:08 | P.DS ---
Providers Date of admission: 08/11/20 15:07 Expected date of discharge: 08/13/20 Attending physician: Tiburcio Medina Primary care physician: Arun Zamora MD Hospital Course: This is a 50-year-old female who presented to the emergency room with worsening cough and fever. Patient was evaluated in the ER and currently admitted to the hospital for further management of her medical problems noted below. 1. Community-acquired pneumonia of the left lower lobe: Started on IV ceftriaxone and oral azithromycin. Sputum culture ordered but unable to obtain. Pro-calcitonin elevated. We will finish 7 days course of antibiotic with darya thromycin and Keflex 2. Severe sepsis without septic shock, improved with IV fluid hydration and antibiotic. Lactic acid back to normal.. Antibiotic as above. Blood culture negative to date. Influenza A and B negative. COVID-19 negative 3. Acute kidney injury, mild creatinine elevation. resolved with IV fluid hydration 4. Type 2 diabetes: Hold glyburide and continue sliding scale insulin 5. elevated d-dimer, VQ scan with low probability for PE. 6. Other chronic medical problems include hypothyroidism, history of stage III chronic kidney disease and hyperlipidemia, continue home medications Patient will be discharged home in a stable condition. For further details about this hospitalization please refer to the electronic chart. Time spent on discharge > 30 minutes including counseling and coordination of Patient Condition at Discharge: Stable Plan - Discharge Summary Discharge Rx Participant: Yes New Discharge Prescriptions: New Azithromycin 250 mg PO DAILY 1 Days #4 tab Cephalexin [Keflex] 500 mg PO Q6HR 1 Days #16 cap Continue Multivitamins, Thera [Multivitamin (formulary)] 1 tab PO DAILY valACYclovir [Valtrex] 500 mg PO DAILY Atorvastatin [Lipitor] 20 mg PO HS Glimepiride [Amaryl] 1 mg PO AC-BRKFST HYDROcodone/APAP 10-325MG [[place] 10-325] 1 tab PO TID Levothyroxine Sodium [Synthroid] 250 mcg PO DAILY Pregabalin [Lyrica] 200 mg PO TID Methocarbamol [Robaxin-750] 750 mg PO TID Discharge Medication List Multivitamins, Thera [Multivitamin (formulary)] 1 tab PO DAILY 02/16/17 [History] valACYclovir [Valtrex] 500 mg PO DAILY 10/06/17 [History] Atorvastatin [Lipitor] 20 mg PO HS 06/13/20 [History] Glimepiride [Amaryl] 1 mg PO AC-BRKFST 06/13/20 [History] HYDROcodone/APAP 10-325MG [[place] 10-325] 1 tab PO TID 06/13/20 [History] Levothyroxine Sodium [Synthroid] 250 mcg PO DAILY 06/13/20 [History] Pregabalin [Lyrica] 200 mg PO TID 06/13/20 [History] Methocarbamol [Robaxin-750] 750 mg PO TID 08/11/20 [History] Azithromycin 250 mg PO DAILY 1 Days #4 tab 08/13/20 [Rx] Cephalexin [Keflex] 500 mg PO Q6HR 1 Days #16 cap 08/13/20 [Rx] Follow up Appointment(s)/Referral(s): Arun Zamora MD [Primary Care Provider] - 1-2 days [facility] [NON-STAFF] - (Please call [facility] if you have questions regarding your new walker. ) Discharge Disposition: HOME SELF-CARE
== END 2020-08-13 16:56 | disposition home or self-care (01) | DRG 871 ==
LOC: EC 13:11 → 4SSUR 15:07
PROVIDERS: ADMIT Internal Medicine; ATTEND Internal Medicine
DX: A41.9 Sepsis, unspecified organism (principal); J18.9 Pneumonia, unspecified organism; N17.9 Acute kidney failure, unspecified; E78.5 Hyperlipidemia, unspecified; E89.0 Postprocedural hypothyroidism; E11.22 Type 2 diabetes mellitus with diabetic chronic kidney disease; R65.20 Severe sepsis without septic shock; Z20.828 Contact with and (suspected) exposure to other viral communicable diseases; N18.30 Chronic kidney disease, stage 3 unspecified; Z79.4 Long term (current) use of insulin; Z79.890 Hormone replacement therapy; Z79.899 Other long term (current) drug therapy; Z91.041 Radiographic dye allergy status; Z91.013 Allergy to seafood; Z87.891 Personal history of nicotine dependence; Z85.819 Personal history of malignant neoplasm of unspecified site of lip, oral cavity, and pharynx; Z90.49 Acquired absence of other specified parts of digestive tract; Z98.51 Tubal ligation status; Z98.890 Other specified postprocedural states; Z98.84 Bariatric surgery status; Z83.79 Family history of other diseases of the digestive system; Z81.8 Family history of other mental and behavioral disorders
CPT/HCPCS: 36415; 71045; 71046; 78582; 80048; 80053; 81003; 82728; 83605; 83615; 84145; 85025; 85379; 85610; 85730; 86140; 87040; 87502; 93005; 94640; 99291